=== PATIENT | female | born 1955 | race Hispanic/Latino ===

== ENCOUNTER 2018-04-11 13:04 | Inpatient (IN) | payer SELFPAY ==
[~2018-04-11] VITALS: Ht 162.6 cm; Wt 72.2 kg
[2018-04-11] VITALS (15 sets, daily range): BP systolic 104–130; BP diastolic 61–84
--- OUTSIDE RECORDS SUMMARY | 2018-04-11 13:07 | XMS REPORT ---
Author Author [facility] Address Unknown Phone Unavailable Care Team Providers Care Note Teller Name Role Phone Unavailable Unavailable Problems This patient has no known problems. Allergies, Adverse Reactions, Alerts This patient has no known allergies or adverse reactions. Medications This patient has no known medications. Encounters Start Date/Time End Date/Time Encounter Type Admission Type Attending [facility] Facility Care Department Encounter ID 2018-03-08 07:43:38 2018-03-08 07:43:38 Outpatient [facility] [id number] 2018-03-02 10:27:45 2018-03-02 10:27:45 Outpatient [facility] [id number] 2018-01-19 09:46:46 2018-01-19 09:46:46 Outpatient [facility] [id number] 2018-01-11 10:02:24 2018-01-11 10:02:24 Outpatient [facility] [id number] 2018-01-11 09:18:44 2018-01-11 09:18:44 Outpatient [facility] [id number] 2018-01-11 00:00:00 2018-01-11 00:00:00 Outpatient [facility] [id number] 2018-01-03 00:00:00 2018-01-03 00:00:00 Outpatient [facility] [id number] 2017-12-02 10:13:32 2017-12-02 10:13:32 Outpatient [facility] [id number] 2017-10-14 08:52:11 2017-10-14 08:52:11 Outpatient [facility] [id number] 2017-09-15 00:00:00 2017-09-15 00:00:00 Outpatient [facility] [id number] 2017-09-06 09:41:19 2017-09-06 09:41:19 Outpatient [facility] [id number] 2017-09-03 10:47:19 2017-09-03 10:47:19 Outpatient [facility] [id number] 2017-08-27 00:00:00 2017-08-27 00:00:00 Outpatient [facility] [id number] 2017-03-25 07:48:15 2017-03-25 07:48:15 Outpatient [facility] [id number] 2017-02-05 00:00:00 2017-02-05 00:00:00 Outpatient [facility] [id number] 2017-01-13 17:47:52 2017-01-13 17:47:52 Outpatient [facility] [id number] 2017-01-07 08:55:05 2017-01-07 08:55:05 Outpatient [facility] [id number] 2017-01-01 14:21:01 2017-01-01 14:21:01 Outpatient [facility] [id number] 2016-12-23 10:58:00 2016-12-23 10:58:00 Outpatient [facility] [id number] 2016-11-02 10:41:03 2016-11-02 10:41:03 Outpatient [facility] [id number] 2016-09-11 06:06:14 2016-09-11 06:06:14 Outpatient [facility] [id number] 2016-09-11 00:00:00 2016-09-11 00:00:00 Outpatient [facility] [id number] 2016-08-19 11:35:21 2016-08-19 11:35:21 Outpatient [facility] [id number] 2016-08-19 00:00:00 2016-08-19 00:00:00 Outpatient [facility] [id number]
--- OUTSIDE RECORDS SUMMARY | 2018-04-11 13:07 | XMS REPORT | Clinical Summary ---
Author Author [facility] Organization [facility] Address Unknown Phone Unavailable Care Team Providers Care Resident Care Spec Name Role Phone Jeronimo Melissa MD PCP Allergies No Known Allergies Medications End Date Status Medication Sig Dispensed Refills Start Date Active cyanocobalamin, vitamin Take 1 tablet 100 tablet 1 B-12, 1,000 mcg by mouth 6 tabletIndications: daily. Anemia, unspecified Active Calcium-Cholecalciferol, Take 1 tablet 100 tablet 1 D3, (CALCIUM 500 + D) 500 by mouth 6 mg(1,250mg) -400 unit daily. tabletIndications: Well woman exam Active codeine-guaiFENesin Take 10 mL by 120 mL 0 (CHERATUSSIN AC) 10-100 mouth 3 times 7 mg/5 mL syrupIndications: daily as Cough needed for Cough or Congestion. Active raNITIdine HCl (ACID Take 150 mg 0 BROKE HANDLER) 150 mg tablet by mouth 2 times daily. Active nitrofurantoin TOME MIRIAM (1) 0 (MACRODANTIN) 100 mg CAPSULA(S) 8 capsule POR LA BOCA CADA SEIS HORAS. Active alendronate (FOSAMAX) 35 Take 1 tablet 12 tablet 3 10/14/ mg tabletIndications: once a week 8 Osteopenia, unspecified on empty location stomach with 8 oz of water and remain upright for 30 minutes. Active cetirizine (ZYRTEC) 10 mg Take 1 tablet 90 tablet 0 tabletIndications: by mouth 8 Seasonal allergic daily. rhinitis due to other allergic trigger Active amLODIPine (NORVASC) 10 Take 1 tablet 90 tablet 0 02/16/201 mg tabletIndications: by mouth 8 Essential hypertension, daily. benign Active lisinopril (PRINIVIL, Take 1 tablet 90 tablet 0 ZESTRIL) 20 mg by mouth 8 tabletIndications: daily. Essential hypertension, benign 09/03/2017 Discontinued cetirizine (ZYRTEC) 10 mg Take 10 mg by 0 tablet mouth daily. 08/04/2017 Discontinued lisinopril (PRINIVIL, Take 1 tablet 90 tablet 1 ZESTRIL) 20 mg by mouth 7 tabletIndications: daily. Essential hypertension, benign 08/04/2017 Discontinued amLODIPine (NORVASC) 10 Take 1 tablet 90 tablet 1 mg tabletIndications: by mouth 7 Essential hypertension, daily. benign 11/15/2017 Discontinued amLODIPine (NORVASC) 10 Take 1 tablet 90 tablet 0 mg tabletIndications: by mouth 8 Essential hypertension, daily. benign 11/17/2017 Discontinued lisinopril (PRINIVIL, Take 1 tablet 90 tablet 0 ZESTRIL) 20 mg by mouth 8 tabletIndications: daily. Essential hypertension, benign 01/03/2018 Discontinued cetirizine (ZYRTEC) 10 mg Take 1 tablet 90 tablet 0 tabletIndications: by mouth 8 Seasonal allergic daily. rhinitis due to other allergic trigger 02/15/2018 Discontinued amLODIPine (NORVASC) 10 Take 1 tablet 90 tablet 0 mg tabletIndications: by mouth 8 Essential hypertension, daily. benign 02/15/2018 Discontinued lisinopril (PRINIVIL, Take 1 tablet 90 tablet 0 ZESTRIL) 20 mg by mouth 8 tabletIndications: daily. Essential hypertension, benign Active Problems Problem Noted Date Screening for osteoporosis- as per pt was told at [facility] for her upper 09/03/2017 back pain Essential hypertension, benign 01/08/2016 Hx of uterine prolapse with cystocele and rectocele- s/p hysterectomy, 01/08/2016 cystocele and rectocele repair 2007 [facility] Encounters Care Team Description Date Type Specialty Jeronimo Melissa MD Preventative health care 03/08/2018 Ancillary Radiology Procedure Dahlia Argueta, OD Meibomian gland dysfunction (Primary Dx); Bilateral dry eyes 03/02/2018 Office Visit Ophthalmology Jeronimo Melissa MD Essential hypertension, benign 02/15/2018 Refill [facility] Jeronimo Melissa MD Preventative health care 01/19/2018 Orders Only [facility] Jeronimo Melissa MD Preventative health care 01/11/2018 Lab Appointment Lab Jeronimo Melissa MD Preventative health care (Primary Dx) 01/11/2018 Office Visit [facility] Jeronimo Melissa MD Seasonal allergic rhinitis due to other allergic trigger 01/03/2018 Refill [facility] Dahlia Argueta, OD Jeronimo Melissa MD Age-related nuclear cataract, bilateral (Primary Dx); Meibomian gland dysfunction (MGD), bilateral, both upper and lower lids; Bilateral dry eyes; Refractive error 12/02/2017 Office Visit Ophthalmology Jeronimo Melissa MD Essential hypertension, benign 11/17/2017 Refill [facility] Jeronimo Melissa MD Essential hypertension, benign 11/15/2017 Refill [facility] Bryan Palmer MD Osteopenia, unspecified location (Primary Dx); Essential hypertension, benign 10/14/2017 Office Visit [facility] Jeronimo Melissa MD Screening for osteoporosis- as per pt was told at [facility] for her upper back pain 09/06/2017 Hospital Radiology Encounter Jeronimo Melissa MD Screening for osteoporosis- as per pt was told at [facility] for her upper back pain (Primary Dx); Chest pain, unspecified type- went to [facility] all work up wnl (EKG, PE); Essential hypertension, benign; Preventative health care; Seasonal allergic rhinitis due to other allergic trigger 09/03/2017 Office Visit [facility] Jeronimo Melissa MD Preventative health care 09/03/2017 Orders Only [facility] Jeronimo Melissa MD Essential hypertension, benign 08/04/2017 Refill [facility] after 04/10/2017 Immunizations Name Dates Previously Given Next Due Herpes Zoster Vaccine In 01/08/2016 (Deferred: Other - Patient requesting Clinic to wait til next visit) Influenza Vaccine 04/17/2016 TDap (Tetanus Toxoid, 07/19/2007 Reduced Diphtheria Toxoid And Acellular Pertussis, Absorbed) Family History Medical History Relation Name Comments Arthritis Father Cancer Mother pancreas cancer Diabetes Sister Heart Sister arrhythmia Hypertension Sister Hypothyroid Sister Relation Name Status Comments Brother Alive Father cirrhosis hepatic. (Age 70) Maternal Grandfather Maternal Grandmother Mother cancer pancreas (Age 50) Paternal Grandfather Paternal Grandmother Sister Alive Sister Sister Sister Sister Social History Date Tobacco Use Types Packs/Day Years Used Never Smoker Smokeless Tobacco: Never Used Tobacco Cessation: Counseling Given: No Alcohol Use Drinks/Week oz/Week Comments No Sex Assigned at Date Recorded Not on file Industry Job Start Date Occupation Not on file Not on file Not on file Travel End Travel History Travel Start No recent travel history available. Last Filed Vital Signs Time Taken Vital Sign Reading 01/11/2018 9:19 AM CDT Blood Pressure 131/69 01/11/2018 9:19 AM CDT Pulse 83 01/11/2018 9:19 AM CDT Temperature 37.1 C (98.7 F) 01/11/2018 9:19 AM CDT Respiratory Rate 18 - Oxygen Saturation - - Inhaled Oxygen - Concentration 01/11/2018 9:19 AM CDT Weight 70.7 kg (155 lb 12.8 oz) 01/11/2018 9:19 AM CDT Height 162.6 cm (5' 4") 01/11/2018 9:19 AM CDT Body Mass Index 26.74 Plan of Treatment Health Maintenance Due Date Last Done Comments Colorectal Cancer Scrn 01/19/2019 01/19/2018, 01/13/2017, 01/10/2016 Annual (FIT/FOBT) Age 50 to 75 Cervical Cancer Scrn (3 02/06/2019 02/07/2016 Yrs) Breast Cancer Scrn 03/08/2019 03/08/2018, 03/25/2017, 02/07/2016, (Yearly) Additional history exists Procedures Comments Procedure Name Priority Date/Time Associated Diagnosis MAMMOGRAM BILAT SCREEN Routine 03/08/2018 [facility] DIGITAL 8:12 AM PLATE PUT IN WORKER OCCULT BLOOD ICT Routine 01/19/2018 [facility] 9:58 AM CDT COMPREHENSIVE METABOLIC Routine 01/11/2018 [facility] PANEL(DBIL NOT INCLUDED) 10:01 AM CDT CBC/DIFF Routine 01/11/2018 [facility] 10:01 AM CDT LIPID PROFILE Routine 01/11/2018 [facility] 10:01 AM CDT HEMOGLOBIN A1C Routine 01/11/2018 [facility] care 10:01 AM CDT BONE DENSITY (DUAL Routine 09/06/2017 Screening for PHOTON) 11:09 AM CDT osteoporosis- as per pt was told at [facility] for her upper back pain after 04/10/2017 Results * MAMMOGRAM BILAT SCREEN DIGITAL (03/08/2018 8:12 AM PLATE PUT IN WORKER) Impressions Performed At IMPRESSION: BENIGN SMS There is no mammographic evidence of malignancy. A 1 year screening mammogram is recommended. I have reviewed the study and agree with the findings in the report. This document has been electronically signed. Carolyn Fitzgerald M.D. ks,ct/:03/08/2018 08:20:45 [employer] Superintendent: Adry Little, [facility] letter sent: Benign Exam Mammogram BI-RADS: 2 Benign G0202 z12.31 Narrative Performed At #[id number] - MAMMOGRAM BILAT SCREEN DIGITAL SMS BILATERAL DIGITAL SCREENING MAMMOGRAM WITH CAD: 03/08/2018 CLINICAL: Annual. Comparison is made to exams dated:03/25/2017, 02/07/2016 [facility], and 08/25/[address] [facility]. There are scattered fibroglandular elements in both breasts that could obscure a lesion on mammography. Current study was also evaluated with a Computer Aided Detection (CAD) system. There are benign calcifications and an intramammary node in both breasts.There are mole markers on the left breast.No significant masses, calcifications, or other findings are seen in either breast.There has been no significant interval change. Procedure Note Interface, Rad/Mammog In - 03/08/2018 9:36 AM PLATE PUT IN WORKER #[id number] - MAMMOGRAM BILAT SCREEN DIGITAL BILATERAL DIGITAL SCREENING MAMMOGRAM WITH CAD: 03/08/2018 CLINICAL: Annual. Comparison is made to exams dated: 03/25/2017, 02/07/2016 [facility], and 08/25/[address] [facility]. There are scattered fibroglandular elements in both breasts that could obscure a lesion on mammography. Current study was also evaluated with a Computer Aided Detection (CAD) system. There are benign calcifications and an intramammary node in both breasts. There are mole markers on the left breast. No significant masses, calcifications, or other findings are seen in either breast. There has been no significant interval change. IMPRESSION IMPRESSION: BENIGN There is no mammographic evidence of malignancy. A 1 year screening mammogram is recommended. I have reviewed the study and agree with the findings in the report. This document has been electronically signed. Carolyn Fitzgerald M.D. ks,ct/:03/08/2018 08:20:45 [employer] Superintendent: Adry Little [facility] letter sent: Benign Exam Mammogram BI-RADS: 2 Benign G0202 z12.31 Performing Organization Address City/[facility]/Zipcode Phone Number SMS * OCCULT BLOOD ICT (01/19/2018 9:58 AM CDT) Occult Blood Negative [facility] ICT Specimen Stool Performing Organization Address [place]/[facility] Phone Number [facility] * HEMOGLOBIN A1C (01/11/2018 10:01 AM CDT) Hemoglobin A1c 6.3 (H) 4.3 - 6.1 % [facility] IMMUNOLOGY Est Average 134.1 mg/dL BT [facility] Gluc IMMUNOLOGY Specimen Blood Performing Organization Address [facility] Phone Number [facility] * COMPREHENSIVE METABOLIC PANEL(DBIL NOT INCLUDED) (01/11/2018 10:01 AM CDT) Albumin 4.8 3.7 - 5.3 g/dL [facility] 1 Calcium 9.5 8.6 - 10.3 mg/dL BT [facility] 1 CO2 29 21 - 31 mmol/L BT [facility] 1 Chloride 102 98 - 107 mmol/L BT [facility] 1 Creatinine 0.50 (L) 0.6 - 1.2 mg/dL BT [facility] 1 Glucose 114 (H) 70 - 110 mg/dL BT [facility] 1 Alk Phos 70 34 - 104 U/L BT [facility] 1 Potassium 4.4 3.5 - 5.1 mmol/L BT [facility] 1 Sodium 138 136 - 145 mmol/L BT [facility] 1 ALT 16 7 - 52 U/L BT [facility] 1 AST 18 13 - 39 U/L BT [facility] 1 Urea Nitrogen 11 7 - 25 mg/dL BT [facility] 1 T Bilirubin 0.4 0.2 - 1.2 mg/dL BT [facility] 1 T Protein 8.0 6.0 - 8.3 g/dL BT [facility] 1 GFR, Estimated >60 mL/min/1.73 m2 BT [facility] 1 GFR, Estim, >60 mL/min/1.73 m2 BT [facility] Afr-Am 1 Anion Gap 7 BT [facility] 1 Specimen Blood Performing Organization Address [facility] Phone Number [facility] * LIPID PROFILE (01/11/2018 10:01 AM CDT) Cholesterol 223 mg/dL [facility] Comment: 1 REFERENCE RANGE: Desirable: <200 mg/dL Borderline: 200-240 mg/dL High Risk: >240 mg/dL Triglyceride 82 <150 mg/dL BT [facility] Comment: 1 REFERENCE RANGE: Normal: <150 mg/dL Borderline High: 150-199 mg/dL High: 200-499 mg/dL Very High: >pr=952 mg/dL HDL 73 mg/dL [facility] Comment: 1 Increased CHD risk: <40 mg/dL Decreased CHD risk: >60 mg/dL LDL 134 mg/dL BT [facility] Comment: 1 REFERENCE RANGE: Optimal: <100 mg/dL Near Optimal: 100-129 mg/dL Borderline High: 130-159 mg/dL High: 160-189 mg/dL Very High: >bu=564 mg/dL Specimen Blood Performing Organization Address [facility] Phone Number MISYS BT [facility] 1 * CBC/DIFF (01/11/2018 10:01 AM CDT) WBC 6.4 4.5 - 11.0 K/uL BT [facility] 2 RBC 4.09 (L) 4.20 - 5.40 M/uL BT [facility] 2 Hemoglobin 12.4 12.0 - 16.0 g/dL BT [facility] 2 Hematocrit 38.6 37.0 - 47.0 % BT [facility] 2 MCV 94 (H) 82 - 92 fL BT [facility] 2 MCH 30.3 27.0 - 32.0 pg BT [facility] 2 MCHC 32.1 32.0 - 36.0 g/dL BT [facility] 2 RDW 43.9 36.4 - 46.3 fL BT [facility] 2 Platelet 248 150 - 400 K/uL BT [facility] 2 Mean Platelet 11.9 9.4 - 12.4 fL BT [facility] Volume 2 Percent NRBC 0.0 BT [facility] 2 Absolute NRBC 0.00 BT [facility] 2 Neutrophil 72.8 (H) 34.0 - 70.0 % BT [facility] 2 Lymphocyte 20.2 20.0 - 50.0 % BT [facility] 2 Monocyte 5.6 5.0 - 12.0 % BT [facility] 2 Eosinophil 0.6 (L) 0.7 - 5.0 % BT [facility] 2 Basophil 0.5 0.1 - 1.2 % BT [facility] 2 Pct Immat Gran 0.3 0.0 - 0.5 BT MAIN-[facility] 2 Neutrophil, Abs 4.68 1.56 - 6.13 K/uL BT MAIN-STATION 2 Lymphocyte, Abs 1.30 1.18 - 3.74 K/uL BT MAIN-STATION 2 Monocyte, Abs 0.36 0.24 - 0.36 K/uL BT MAIN-STATION 2 Eosinophil, Abs 0.04 0.04 - 0.36 K/uL BT MAIN-STATION 2 Basophil, Abs 0.03 0.01 - 0.08 K/uL BT MAIN-STATION 2 Absol Immat 0.02 0.00 - 0.03 K/uL BT MAIN-STATION Gran 2 Specimen Blood Performing Organization Address City/State/Zipcode Phone Number MISYS BT [facility] 2 * BONE DENSITY (DUAL PHOTON) (09/06/2017 11:09 AM CDT) Impressions Performed At IMPRESSION: SMS Finding is suggesting Osteopenia. There is focal osteoporosis in L4 with T score of -2.7. Signed By: Gorge Canada MD, 09/06/2017 11:55 AM Narrative Performed At EXAM: DEXA SMS INDICATION: Bone mineral density screening TECHNIQUE: The patient underwent bone mineral densitometry using [employer] Discovery SL dual energy x-ray absorptiometry (DEXA).T-score is to compare the female peak bone mineral density (BMD). WHO definition of osteoporosis is T<-2.5 and osteopenia is T <-1.0. FINDINGS: Region...........BMD.....T score Spine L1-4....... 0.806 ..... -2.2 Femoral Neck..... 0.645 ..... -1.8 Total hip........ 0.748 ..... -1.6 Procedure Note Interface, Rad/Mammog In - 09/06/2017 12:01 PM CDT EXAM: DEXA INDICATION: Bone mineral density screening TECHNIQUE: The patient underwent bone mineral densitometry using Hologic Discovery SL dual energy x-ray absorptiometry (DEXA). T-score is to compare the female peak bone mineral density (BMD). WHO definition of osteoporosis is T<-2.5 and osteopenia is T <-1.0. FINDINGS: Region...........BMD.....T score Spine L1-4....... 0.806 ..... -2.2 Femoral Neck..... 0.645 ..... -1.8 Total hip........ 0.748 ..... -1.6 IMPRESSION IMPRESSION: Finding is suggesting Osteopenia. There is focal osteoporosis in L4 with T score of -2.7. Signed By: Gorge Canada MD, 09/06/2017 11:55 AM Performing Organization Address City/State/Zipcode Phone Number SMS after 04/10/2017 Insurance Type Payer Benefit Subscriber ID Effective Phone Address Plan / Dates Group [facility] xxxxxxx 2017-6 [address] [employer]ILY /09/2018 [id number] [place], [place] [phone] [employer] PLAN H[employer] PLAN xxxxxxx 2017-5 [id number] [place] [address]
[2018-04-11] MEDS ORDERED: SODIUM CHLORIDE 0.9% 1000ML 1,000 ML IV STA (13:11)
[2018-04-11] MEDS ORDERED: SODIUM CHLORIDE 0.9% 1000ML 2,000 ML ONE (13:13)
[2018-04-11] MEDS ORDERED: SODIUM CHLORIDE 0.9% 1000ML 1,000 ML IV SCH (13:15)
--- NOTE | 2018-04-11 13:17 | NUR ---
PATIENT TRANSPORTED TO ER ROOM 1, PLACED ON CARDIAC, NIBP, SPO2 AND DEFIB PADS APPLIED. PATIENT PALE AND COOL,HYPOTENSIVE, PLACED IN [place]. DR TOLENTINO AT BEDSIDE FOR PATIENT EVAL.
--- NOTE | 2018-04-11 13:22 | NUR ---
DR MCPHERSON AT BEDSIDE FOR PATIENT EVAL.
[2018-04-11 13:41] LABS: BASOPHILS % 0.4 % (0.0-1.0); EOSINOPHILS # (AUTO) 0.1 (0.0-0.4); HEMATOCRIT 33.5 % (34.2-44.1); HEMOGLOBIN 11.1 g/dL (12.0-16.0); LYMPHOCYTES # (AUTO) 3.9 (1.0-3.2); LYMPHOCYTES % 34.3 % (18.0-39.1); MEAN CORPUSCULAR HEMOGLOBIN 30.5 pg (28-32); MEAN CORPUSCULAR HGB CONC 33.1 g/dL (31-35); MONOCYTES # (AUTO) 0.9 (0.2-0.8); MONOCYTES % 8.3 % (4.4-11.3); NEUTROPHILS # (AUTO) 6.3 (2.1-6.9); NEUTROPHILS % 55.6 % (38.7-80.0); PLATELET COUNT 262 x10e3/uL (140-360); RED BLOOD COUNT 3.64 x10e6/uL (3.6-5.1); RED CELL DISTRIBUTION WIDTH 12.3 % (11.7-14.4)
--- NOTE | 2018-04-11 13:47 | NUR ---
XRAY AT BEDSIDE FOR CXR
--- NOTE | 2018-04-11 13:52 | NUR ---
ULTRASOUND AT BEDSIDE FOR ECHO. NO SIGNS OF ACUTE DISTRESS NOTED AT THIS TIME.
[2018-04-11 13:58] LABS: ALANINE AMINOTRANSFERASE 18 IU/L (0-55); ALBUMIN 3.9 g/dL (3.5-5.0); ALBUMIN/GLOBULIN RATIO 1.1 (0.8-2.0); ALKALINE PHOSPHATASE 74 IU/L (40-150); AMYLASE 58 U/L (25-125); ANION GAP 13.4 mmol/L (8-16); BLOOD UREA NITROGEN 16 mg/dL (7-26); BUN/CREATININE RATIO 20 (6-25); CARBON DIOXIDE 24 mmol/L (22-29); CHLORIDE 105 mmol/L (98-107); CREATINE KINASE 64 IU/L (29-168); CREATININE, SERUM 0.81 mg/dL (0.57-1.11); EST GLOMERULAR FILTRATION RATE > 60 ML/MIN (60-); GLUCOSE 135 mg/dL (74-118); LIPASE 37 U/L (8-78); POTASSIUM 3.4 mmol/L (3.5-5.1); SODIUM 139 mmol/L (136-145)
--- NOTE | 2018-04-11 14:06 | NUR ---
DR JACKSON AT BEDSIDE FOR PATIENT EVAL. EDUCATING PATIENT AND FAMILY ON THE CURRENT PLAN OF CARE, VERBALIZED UNDERSTANDING. NO SIGNS OF ACUTE DISTRESS NOTED AT THIS TIME.
--- NOTE | 2018-04-11 14:09 | Diagnostic Imaging Report ---
EXAMINATION: Chest AP portable INDICATION: Vomiting. COMPARISON: None FINDINGS: TUBES and LINES: None. Overlying pad in the right hemithorax. LUNGS: Mild prominence of the central pulmonary vasculature bilaterally may be in part related to portable technique. Mild elevation of the right hemidiaphragm. Mild bibasilar subsegmental atelectasis. PLEURA: No pleural effusion or pneumothorax. HEART AND MEDIASTINUM: The cardiac silhouette is mildly enlarged. BONES AND SOFT TISSUES: No acute osseous lesion. Soft tissues are unremarkable. UPPER ABDOMEN: No free air under the diaphragm. IMPRESSION: Possible mild pulmonary venous congestion. Mild bibasilar subsegmental atelectasis. Signed by: Dr. Chace Shields M.D. on 04/11/2018 2:06 PM
--- NOTE | 2018-04-11 14:26 | NUR ---
PATIENT AMBULATORY TO BATHROOM WITH RN ASSISTANCE, TOLERATED WELL. NO SIGNS OF ACUTE DISTRESS NOTED AT THIS TIME.
--- NOTE | 2018-04-11 14:29 | NUR ---
PATIENT AMBULATORY BACK TO BED FROM BATHROOM WITH RN ASSISTANCE, TOLERATED WELL. NO SIGNS OF ACUTE DISTRESS NOTED AT THIS TIME. RECONNECTED TO BEDSIDE MONITOR. DENIES ANY C/O AT THIS TIME. FAMILY AT BEDSIDE.
[2018-04-11] MEDS ORDERED: ASPIRIN 81 MG CHEW TAB PO ONE (14:30)
--- NOTE | 2018-04-11 14:48 | NUR ---
PATIENT C/O UPPER BACK PAIN. NOTIFIED DR TOLENTINO. NO SIGNS OF ACUTE DISTRESS NOTED AT THIS TIME.
--- OUTSIDE RECORDS SUMMARY | 2018-04-11 14:52 | XMS REPORT | Clinical Summary ---
Author Author [facility] Organization [facility] Address Unknown Phone Unavailable Care Team Providers Care Tobacco Acreage Measurer Name Role Phone Jeronimo Melissa MD PCP [...] raNITIdine HCl (ACID Take 150 mg 0 ESTIMATOR JEWELRY) 150 mg tablet by mouth 2 times [...] osteoporosis- as per pt was told at [facility] for her upper 09/03/2017 back pain Essential hypertension, benign 01/08/2016 Hx of uterine prolapse with cystocele and rectocele- s/p hysterectomy, 01/08/2016 cystocele and rectocele repair 2007 [facility] Encounters Care Team Description Date Type Specialty Jeronimo Melissa MD Preventative health care 03/08/2018 Ancillary Radiology Procedure Dahlia Argueta, OD Meibomian gland dysfunction (Primary Dx); Bilateral dry eyes 03/02/2018 Office Visit Ophthalmology Jeronimo Melissa MD Essential hypertension, benign 02/15/2018 Refill [facility] Jeronimo Melissa MD Preventative health care 01/19/2018 Orders Only [facility] Jeronimo Melissa MD Preventative health care 01/11/2018 Lab Appointment Lab Jeronimo Melissa MD Preventative health care (Primary Dx) 01/11/2018 Office Visit [facility] Jeronimo Melissa MD Seasonal allergic rhinitis due to other allergic trigger 01/03/2018 Refill [facility] Dahlia Argueta, OD Jeronimo Melissa MD Age-related nuclear cataract, bilateral (Primary Dx); Meibomian gland dysfunction (MGD), bilateral, both upper and lower lids; Bilateral dry eyes; Refractive error 12/02/2017 Office Visit Ophthalmology Jeronimo Melissa MD Essential hypertension, benign 11/17/2017 Refill [facility] Jeronimo Melissa MD Essential hypertension, benign 11/15/2017 Refill [facility] Bryan Palmer MD Osteopenia, unspecified location (Primary Dx); Essential hypertension, benign 10/14/2017 Office Visit [facility] Jeronimo Melissa MD Screening for osteoporosis- as per pt was told at [facility] for her upper back pain 09/06/2017 Hospital Radiology Encounter Jeronimo Melissa MD Screening for osteoporosis- as per pt was told at [facility] for her upper back pain (Primary Dx); Chest pain, unspecified type- went to [facility] all work up wnl (EKG, PE); Essential hypertension, benign; Preventative health care; Seasonal allergic rhinitis due to other allergic trigger 09/03/2017 Office Visit [facility] Jeronimo Melissa MD Preventative health care 09/03/2017 Orders Only [facility] Jeronimo Melissa MD Essential hypertension, benign 08/04/2017 Refill [facility] after 04/10/2017 Immunizations Name Dates [...] 03/08/2018 Preventative health care DIGITAL 8:12 AM COPY ROOM TECHNICIAN OCCULT BLOOD ICT Routine 01/19/2018 [facility] 9:58 AM CDT COMPREHENSIVE METABOLIC Routine 01/11/2018 [facility] PANEL(DBIL NOT INCLUDED) 10:01 AM CDT CBC/DIFF Routine 01/11/2018 [facility] 10:01 AM CDT LIPID PROFILE Routine 01/11/2018 [facility] 10:01 AM CDT HEMOGLOBIN A1C Routine 01/11/2018 [facility] care 10:01 AM CDT BONE DENSITY (DUAL Routine 09/06/2017 Screening for PHOTON) 11:09 AM CDT osteoporosis- as per pt was told at [facility] for her upper back pain after 04/10/2017 Results * MAMMOGRAM BILAT SCREEN DIGITAL (03/08/2018 8:12 AM COPY ROOM TECHNICIAN) Impressions Performed At IMPRESSION: BENIGN SMS There is no mammographic evidence of malignancy. A 1 year screening mammogram is recommended. I have reviewed the study and agree with the findings in the report. This document has been electronically signed. Carolyn Fitzgerald M.D. ks,ct/:03/08/2018 08:20:45 Dining Room Tables Set Up Attendant: Adry Little, [facility] letter sent: Benign Exam Mammogram BI-RADS: 2 Benign G0202 z12.31 Narrative Performed At #[id number] - MAMMOGRAM BILAT SCREEN DIGITAL SMS BILATERAL DIGITAL SCREENING MAMMOGRAM WITH CAD: 03/08/2018 CLINICAL: Annual. Comparison is made to exams dated:03/25/2017, 02/07/2016 [facility], and 08/25/2012 [facility]. There are scattered fibroglandular elements in [...] Interface, Rad/Mammog In - 03/08/2018 9:36 AM COPY ROOM TECHNICIAN #[id number] - MAMMOGRAM BILAT SCREEN DIGITAL BILATERAL DIGITAL SCREENING MAMMOGRAM WITH CAD: 03/08/2018 CLINICAL: Annual. Comparison is made to exams dated: 03/25/2017, 02/07/2016 [facility], and 08/25/2012 [facility]. There are scattered fibroglandular elements in [...] electronically signed. Carolyn Fitzgerald M.D. ks,ct/:03/08/2018 08:20:45 Dining Room Tables Set Up Attendant: Adry Little [facility] letter sent: Benign Exam Mammogram BI-RADS: 2 Benign G0202 z12.31 Performing Organization Address City/[facility]/Zipcode Phone Number SMS * OCCULT BLOOD ICT (01/19/2018 9:58 AM CDT) Occult Blood Negative [facility] ICT Specimen Stool Performing Organization Address City/[facility] Phone Number [facility] * HEMOGLOBIN A1C (01/11/2018 10:01 AM CDT) Hemoglobin A1c 6.3 (H) 4.3 - 6.1 % BT DIAGNOSTIC IMMUNOLOGY Est Average 134.1 mg/dL BT DIAGNOSTIC Gluc IMMUNOLOGY Specimen Blood Performing Organization Address [facility] Phone Number MISYS BT DIAGNOSTIC IMMUNOLOGY * [...] MAIN-STATION 1 Specimen Blood Performing Organization Address [facility] Phone Number MISYS MAIN-STATION 1 * LIPID PROFILE (01/11/2018 10:01 AM CDT) Cholesterol 223 mg/dL BT MAIN-STATION Comment: 1 REFERENCE RANGE: Desirable: <200 mg/dL Borderline: 200-240 mg/dL High Risk: >240 mg/dL Triglyceride 82 <150 mg/dL BT MAIN-STATION Comment: 1 REFERENCE RANGE: Normal: <150 mg/dL Borderline High: 150-199 mg/dL High: 200-499 mg/dL Very High: >ml=207 mg/dL HDL 73 mg/dL BT MAIN-STATION Comment: 1 Increased CHD risk: <40 mg/dL Decreased CHD risk: >60 mg/dL LDL 134 mg/dL BT MAIN-STATION Comment: 1 REFERENCE RANGE: Optimal: <100 mg/dL Near Optimal: 100-129 mg/dL Borderline High: 130-159 mg/dL High: 160-189 mg/dL Very High: >zn=665 mg/dL Specimen Blood Performing Organization Address [facility] Phone Number MISYS BT MAIN-STATION 1 * [...] The patient underwent bone mineral densitometry using [employer] Discovery SL dual energy x-ray absorptiometry (DEXA).T-score [...] Effective Phone Address Plan / Dates Group [facility] xxxxxxx 2017-[address] [employer] [facility]ILY /09/2018 [id number] [place], [place] [address] [facility] [employer] xxxxxxx 2017-5 [address] [place] [address]
[2018-04-11] MEDS ORDERED: MORPHINE SULFATE INJ 4 MG/ML INJ IV PRN (15:00)
[2018-04-11 15:08] LABS: BILIRUBIN,URINE NEGATIVE (NEGATIVE); CLARITY,URINE SL CLOUDY (CLEAR); COLOR,URINE YELLOW (YELLOW); KETONES,URINE NEGATIVE (NEGATIVE); LEUKOCYTE ESTERASE ,URINE TRACE (NEGATIVE); NITRITE,URINE NEGATIVE (NEGATIVE); PROTEIN,URINE DIPSTICK NEGATIVE (NEGATIVE); URINE UROBILINOGEN 0.2 mg/dL (0.2 - 1)
[2018-04-11 15:17] LABS: BACTERIA,URINE RARE /HPF; EPITHELIAL CELLS,URINE FEW /LPF; MUCUS,URINE FEW (RARE); WBC,URINE (MAN) 0-5 /HPF (0-5)
[2018-04-11] MEDS ORDERED: POTASSIUM CHLORIDE 20 MEQ TAB CR PO STA (15:27)
[2018-04-11] MEDS ORDERED: NORVASC5 MG PO (15:32)
[2018-04-11] MEDS ORDERED: LISINOPRIL10 MG PO (15:32)
[2018-04-11] MEDS ORDERED: CETIRIZINE HCL10 MG PO (15:32)
--- NOTE | 2018-04-11 15:45 | NUR ---
PATIENT TRANSPORTED TO ICU ROOM 194 VIA STRETCHER WITH WIRE MESH KNITTER AND PORTABLE AUDIO NARRATOR. NO SIGNS OF ACUTE DISTRESS NOTED AT THIS TIME.
[2018-04-11 15:52] LABS: AMPHETAMINES SCREEN,URINE NEGATIVE (NEGATIVE); BENZODIAZEPINES SCREEN,URINE NEGATIVE (NEGATIVE); PHENCYCLIDINE SCREEN,URINE NEGATIVE (NEGATIVE)
[2018-04-11 15:57] LABS: CHOL/HDL RATIO 2.8 (3.0-3.6)
--- NOTE | 2018-04-11 16:16 | Consultation ---
DATE OF CONSULTATION: April 11, 2018 REQUESTING PHYSICIAN: Dr. Cisneros. REASON FOR CONSULTATION: Bradycardia. HISTORY OF PRESENT ILLNESS: This is a 62-year-old woman with history of hypertension who presents with complaints of presyncope. The patient and family at bedside indicate that she was out shopping earlier today. She began to feel poorly so she went outside. She describes indigestion as well as burping sensation. She simply began to feel worse with pallor as well as sensation of near syncope. However, the patient and family indicated that she did not lose consciousness. Due to these symptoms, she presented to [facility] ER for further evaluation. On presentation, the patient was found to be bradycardiac and hypotensive with EKG revealing marked sinus bradycardia with junctional escape as well as nonspecific ST abnormalities. Cardiology is consulted for further evaluation. She indicates she has had prior episodes that were similar 3 times earlier this year including July and January. In addition, the patient states she had sensation of epigastric pain as well as palpitations while she was in the ER. REVIEW OF SYSTEMS: Negative except as per HPI. PAST MEDICAL HISTORY: Hypertension. PAST SURGICAL HISTORY: 1. Hysterectomy. 2. section. ALLERGIES: NO KNOWN DRUG ALLERGIES. MEDICATIONS: Please see EMR. SOCIAL HISTORY: Denies tobacco, alcohol or illicit drugs. FAMILY HISTORY: Noncontributory. PHYSICAL EXAMINATION VITAL SIGNS: Temperature 96 degrees, pulse 78, respiratory rate 25, blood pressure 121/63, oxygen 95%. GENERAL: Awake, alert and in no acute distress. HEENT: Normocephalic, atraumatic. Pupils are equal. No scleral icterus. NECK: Supple. No thyromegaly or cervical lymphadenopathy. No carotid bruits. LUNGS: Clear to auscultation bilaterally. No wheezes or crackles. CARDIOVASCULAR: Normal rate, regular rhythm. No murmurs. Normal S1 and S2. ABDOMEN: Soft and nontender. Nondistended. Normoactive bowel sounds. EXTREMITIES: No edema. NEUROLOGIC: Nonfocal exam. SKIN: No rash appreciated. LABORATORY DATA: WBC 11.3, hemoglobin 11.1, hematocrit 33.5, platelets 262,000, sodium 139, potassium 3.4, chloride 105, CO2 of 24, BUN 16, creatinine 0.81, lactic acid 21.5. Troponin less than 0.088. Chest x-ray with possible mild pulmonary venous congestion, mild bibasilar subsegmental atelectasis. EKG: Marked sinus bradycardia with junctional rhythm. IMPRESSION 1. Symptomatology bradycardia. 2. Hypertension. RECOMMENDATIONS: Trend cardiac enzymes to rule out myocardial infarction. Check TSH as well as fasting lipid panel. Echocardiogram has been ordered. We will review the images once they are available. Given the patient's symptomatic bradycardia, we will consult electrophysiology for possible pacemaker implantation. Thank you for this consult. Will continue to follow. Job#: [id number]
[2018-04-11 16:17] LABS: THYROID STIMULATING HORMONE 0.56 uIU/mL (0.350-4.940)
--- NOTE | 2018-04-11 16:51 | NUR ---
consult for dr hernandez called in to answering service. per service, is yulia.
[2018-04-12] VITALS (18 sets, daily range): BP systolic 95–144; BP diastolic 56–73
[2018-04-12 05:14] LABS: CREATINE KINASE MB 0.8 ng/mL (0-5.0)
[2018-04-12 05:29] LABS: CHOL/HDL RATIO 2.7 (3.0-3.6)
[2018-04-12 05:30] LABS: CREATINE KINASE MB 0.7 ng/mL (0-5.0)
--- NOTE | 2018-04-12 15:30 | NUR ---
patient has made a decision not to do pacemaker at this time. she is asking to go home. called and spoke with Dr Loyola and she will discuss with Dr Mann and call back with plan of care.
--- NOTE | 2018-04-12 16:26 | Consultation ---
DATE OF CONSULTATION: April 12, 2018 REQUESTING PHYSICIAN: Dr. Loyola. REASON FOR CONSULTATION: Evaluation of patient with bradycardia and syncope. CHIEF COMPLAINT: Loss of consciousness. HISTORY OF PRESENT ILLNESS: Ms. Cha is a 62-year-old woman with history of hypertension who is coming to the hospital today with recurrent syncope and shortness of breath. According to the patient, she had been in the mall shopping and had some significant back discomfort. On that time, she developed severe shortness of breath and lightheadedness. She went into her car and shortness of breath did not resolve and she came to the emergency room at that point. She was noted at that time to have severe bradycardia with a heart rate of 38 beats per minute in complete heart block, sinus rate at about 50 beats per minute. She was treated aggressively and the symptoms resolved spontaneously. The heart rate currently is 86 beats per minute, in sinus rhythm, with no evidence of AV conduction disturbances whatsoever. PAST MEDICAL HISTORY: Significant for hypertension. SOCIAL HISTORY: Negative for tobacco, alcohol, or drug abuse. FAMILY HISTORY: Negative for cardiac arrhythmias or congestive heart failure. Positive for hypertension. REVIEW OF SYSTEMS: As stated in HPI. The 14-point review of systems is negative. PHYSICAL EXAMINATION VITAL SIGNS: Blood pressure is currently 126/57, heart rate is 80, respiratory rate is 13, O2 saturation are 99% on room air. GENERAL: Ms. Cha is a middle-aged appearing , female in no acute distress. HEENT: Mucous membranes are pink, moist, anicteric, and acyanotic. Pupils are equal, round, and reactive to light. Head is atraumatic, normocephalic. CARDIOVASCULAR: S1 and S2 audible. Regular rate and rhythm is noted. No murmurs, rubs, or gallops. LUNGS: Clear to auscultation bilaterally. GI: Abdomen is soft, nondistended, nontender. Bowel sounds heard in all 4 quadrants. No hepatosplenomegaly. EXTREMITIES: Without peripheral edema, 2+ pulses in all 4 extremities. NEUROLOGICALLY: She is alert, oriented x3, with no focal neurologic deficits. IMAGING: Echocardiogram shows ejection fraction of 50-55%, small or trace tricuspid regurgitation. EKG shows sinus rhythm with third-degree AV block with junctional escape rhythm at 38 beats per minute and T-wave inversions inferiorly. LABORATORY STUDIES: Reviewed. ASSESSMENT: Ms. Cha is a 62-year-old woman with hypertension, who has had recurrent syncope. This is her third, possibly fourth syncopal episode in the last year to two years. Each of these episode seems to occur during exertion or during stressful situation. This is associated with some shortness of breath, but with low blood pressure and significant severe bradycardia. At this time, her EKG showed complete heart block with both junctional escape rhythm at 38 beats per minute and sinus rhythm about 50 to 60 beats per minute. These episodes appear to sound like neurocardiogenic syncope. The episodes are intermittent. They are occurring without warning. Although they are related to exertion, they are reproducible with exertion on the typical basis such as angina or cardiovascular or related to any coronary artery disease. Nonetheless, I believe these are neurocardiogenic syncopal episodes particularly because she is recovered and responded normally with a normal sinus rhythm at heart rate of 80s with normal AV conduction and normal QRS activation. With that in mind, there are 2 options available for her. Consideration of pacemaker implantation can be done with programming for sudden dante response, which can be used in settings of neurocardiogenic syncope with a profound cardioinhibitory component. In patients with a profound cardioinhibitory component of neurocardiogenic syncope, the pacemakers may have significant impact in reducing the severity of the syncopal episodes. Unfortunately if the component is mixed with a cardio or vasodilatory and the cardioinhibitory component, there may be some improvement in symptoms, but she may still have symptoms related to vasodilatation. I have discussed this with the patient's family at great length. Pacemaker implantation for her could be beneficial given the fact that there seems to be a strong cardioinhibitory component; however, there seems to be a vasodilatory component as well and she may still have some symptoms of hypotension associated with the episodes. Conservative management with hydration, compression stockings, and medications such as midodrine and Florinef can be used to improve blood circulation and raise blood pressure. Unfortunately, she already has mild hypertension, is taking 2 medications for that, and this would be counterintuitive to give her medications to raise blood pressure as well as lower her blood pressure at the same time. I think it would be reasonable to try to reduce these medications and tolerate a bit of hypotension to prevent the episodes. I have asked her family to discuss the options of consideration of pacemaker implantation versus conservative medical management with hydration and compression stockings. They are going to think about it and let us know. I will also discuss this with Dr. Loyola and will decide later this evening. From my standpoint, she can leave the ICU and go to her telemetry floor. Thank you for the consultation. Job#: [id number] PUN
--- NOTE | 2018-04-12 16:30 | NUR ---
patient ambulated to bathroom today x 3 with minimum assistance. denies any shortness of breath. denies any chest pain
--- NOTE | 2018-04-12 17:39 | NUR ---
Received patient from ICU via wheelchair. Accompanied by daughters. [id number] to time, person,place, situation. Respirations even and unlabored. Tele 2452 SR 80. Oriented patient to room. Instructed patient to use call light for assistance. Voiced understanding.
--- NOTE | 2018-04-12 17:44 | NUR ---
after discussing with family, patient has decided to proceed with pacemaker placement. paged Dr Mann for orders and notified Dr Loyola.
--- NOTE | 2018-04-12 18:21 | Discharge Summary ---
REASON FOR ADMISSION 1. Near syncope. 2. Symptomatic bradycardia. DISCHARGE DIAGNOSIS: Neurocardiogenic syncope. COMORBID CONDITIONS: Hypertension. CONSULTS: Electrophysiology. HISTORY OF PRESENT ILLNESS AND HOSPITAL COURSE: This is a 62-year-old woman with history hypertension who presents with complaints of near syncope. On arrival to the ER, she was found to have significant bradycardia with heart block and junctional escape rhythm. Electrophysiology was consulted for possible pacemaker implantation. After discussion with patient and family, the family decided against pacemaker implantation and wished to proceed with conservative measures. The patient was instructed on sodium liberalization as well as increasing fluid intake. She was instructed to wear compression stockings. In addition, patient was informed that she could not drive for 6 months. Furthermore, patient's antihypertensive therapy was decreased to decrease the severity of her hypotension during these episodes. No further episodes were recorded and patient was discharged home in stable condition. DISCHARGE MEDICATIONS: Please see medication list. DIET: Heart-healthy diet, sodium liberalization and increased fluid intake were discussed. FOLLOWUP: With primary care provider in 2 weeks and electrophysiology. ACTIVITY: As tolerated. PHYSICAL EXAMINATION VITAL SIGNS: Temperature 98.4 degrees, pulse 79, respiratory rate 15, blood pressure 121/62, and oxygen saturation 95% on room air. GENERAL: Awake and alert, in no acute distress. LUNGS: Clear to auscultation bilaterally with no wheezes or crackles. CARDIOVASCULAR: Normal rate, regular rhythm. No murmur. Normal S1 and S2. ABDOMEN: Soft, nontender. EXTREMITIES: No edema. TELEMETRY: Normal sinus rhythm. SHAILESH JACKSON MD Job#: [id number] GRAY
--- NOTE | 2018-04-12 18:31 | NUR ---
Resting in bed, side rails upx3, call light within reach, family at bedside. No s/s of acute distress noted. Report to be given to oncoming nurse.
--- NOTE | 2018-04-12 20:10 | NUR ---
ASSESSMENT DONE.NO RESP.DISTRESS.NO PAIN VOICED.AAOX4.AMBULATES.BED LOCKED AND IN LOWEST POSITION.INSTRUCTED TO CALL FOR ASSISTANCE NEEDED.
[2018-04-13] VITALS (7 sets, daily range): BP systolic 128–154; BP diastolic 64–72
--- NOTE | 2018-04-13 01:27 | NUR ---
MAINTAINING NPO FOR PACE MAKER PLACEMENT.V/S STABLE.
--- NOTE | 2018-04-13 05:00 | NUR ---
HIBICLENS BATH TAKEN.NO PAIN VOICED.SLEPT WELL DURING NIGHT.
[2018-04-13 05:38] LABS: BASOPHILS # (AUTO) 0.1 (0.0-0.1); BASOPHILS % 0.6 % (0.0-1.0); EOSINOPHILS # (AUTO) 0.1 (0.0-0.4); EOSINOPHILS % 1.3 % (0.0-6.0); HEMATOCRIT 35.5 % (34.2-44.1); HEMOGLOBIN 11.6 g/dL (12.0-16.0); LYMPHOCYTES # (AUTO) 2.1 (1.0-3.2); LYMPHOCYTES % 27.1 % (18.0-39.1); MEAN CORPUSCULAR HEMOGLOBIN 30.4 pg (28-32); MEAN CORPUSCULAR HGB CONC 32.7 g/dL (31-35); MEAN CORPUSCULAR VOLUME 92.9 fL (81-99); MONOCYTES # (AUTO) 0.7 (0.2-0.8); MONOCYTES % 8.8 % (4.4-11.3); NEUTROPHILS # (AUTO) 4.8 (2.1-6.9); NEUTROPHILS % 61.8 % (38.7-80.0); PLATELET COUNT 235 x10e3/uL (140-360); RED BLOOD COUNT 3.82 x10e6/uL (3.6-5.1); RED CELL DISTRIBUTION WIDTH 12.6 % (11.7-14.4)
[2018-04-13 06:01] LABS: ALANINE AMINOTRANSFERASE 37 IU/L (0-55); ALBUMIN 3.8 g/dL (3.5-5.0); ALKALINE PHOSPHATASE 59 IU/L (40-150); BLOOD UREA NITROGEN 10 mg/dL (7-26); BUN/CREATININE RATIO 14 (6-25); CALCIUM 8.9 mg/dL (8.4-10.2); CARBON DIOXIDE 23 mmol/L (22-29); CHLORIDE 105 mmol/L (98-107); EST GLOMERULAR FILTRATION RATE > 60 ML/MIN (60-); GLUCOSE 99 mg/dL (74-118); SODIUM 138 mmol/L (136-145)
--- NOTE | 2018-04-13 06:50 | NUR ---
REPORT GIVEN TO THE ONCOMING RN.WALKING ROUNDS DONE.STABLE CONDITION.
--- NOTE | 2018-04-13 07:00 | NUR ---
Received patient semi fowlers position, call light within reach, daughters at bedside. AAOX4 to time, person, place, situation. Respirations even and unlabored. Reminded patient of NPO status. Voice understanding.
--- NOTE | 2018-04-13 14:00 | NUR ---
SOCIAL WORK INITIAL ASSESSMENT Mining Helper to bedside to discuss plan of care with patient/family. CM/SW role and care transitions discussed. Anticipated discharge plan discussed along with duration of care. CM/SW discussed patients right to make decisions in care. CM/SW work hours given. Patient lives: IN OWN HOME WITH FAMILY Admit/Transfer: VIA ED FROM HOME POA/Emergency contact: FAMILY Current/Previous Home Health:NONE PCP/Follow-up Care: [facility] Current/Previous DME: NONE Other Services: NA Employment Status: STAY AT HOME Areas of Concerns: PT HAS GOLD CARD Referral Needs: GAVE PACKET OF INFORMATION WITH COMMUNITY [employer] FOR ASSISTANCE WITH LOW TO NO INCOME TO PATIENT. RESOURCES THAT PATIENT MAY BE ABLE TO FOLLOW UP UPON DISCHARGE. PT EDUCATED ON EACH RESOURCE AND UNDERSTANDING HOW TO FOLLOW UP TO SEE IF QUALIFIED FOR EACH RESOURCE. Education Needs: NONE IMM/ROA given and signed (if applicable): Goal for discharge: RETURN HOME INDEPENDENTLY CM/SW left business card at the bedside with contact information. Name and number was also written on the patients whiteboard. Patient verbalized understanding of discussion. CM will follow-up with ongoing discharge and transition of care needs.
--- NOTE | 2018-04-13 17:25 | NUR ---
Per pacemaker to be rescheduled for tomorrow. Paged to notify Addendum: 04/13/18 at 1907 by MARJORIE HERNANDES RN left message notifying medication reconciliation has not been reviewed. Awaiting for call back
--- NOTE | 2018-04-13 19:00 | NUR ---
Report given to oncoming nurse of patient's status. No s/s of acute distress noted. Instructed patient NPO after midnight. Voiced understanding.
--- NOTE | 2018-04-13 19:45 | NUR ---
Pt alert and oriented x3, resting in bed, semi-luis's position. Breathing even, unlabored. Skin warm, dry to touch. Denies any pain or discomfort at this time. Call light within reach. Family at beside. Pt is scheduled for pacemaker placement tomorrow with Dr. Mann. Pt verbalizes understanding. Pt is to remain npo past midnight tonight. Will continue to monitor.
[2018-04-14] VITALS: BP 141/68
[2018-04-14 04:00] VITALS: BP 138/66
[2018-04-14] MEDS ORDERED: FENTANYL CITRATE/PF 100MCG/2 ML INJ ONE (07:18)
[2018-04-14] MEDS ORDERED: LIDOCAINE HCL 2% LOCAL 20 ML VIAL ONE ×2 (07:18→07:58)
[2018-04-14] MEDS ORDERED: BACITRACIN 50,000 UNIT VIAL ONE (07:18)
[2018-04-14] MEDS ORDERED: MIDAZOLAM HCL 2 MG/2 ML VIAL ONE ×2 (07:18→07:57)
[2018-04-14] MEDS ORDERED: SODIUM CHLORIDE 0.9% 1000ML 2,000 ML ONE (07:19)
[2018-04-14] MEDS ORDERED: SODIUM CHLORIDE 0.9% 500ML 500 ML ONE (07:19)
[2018-04-14] MEDS ORDERED: VANCOMYCIN 1GM/NS 250 ML 250 ML ONE (07:35)
[2018-04-14 09:00] VITALS: BP 134/63
--- NOTE | 2018-04-14 09:00 | NUR ---
PATIENT IS BACK ON THE UNIT FROM FARM MANAGER IN STABLE CONDITION. PRESSURE DRESSING DRY AND INTACT TO THE PACEMAKER SITE, PATIENT DENIES PAIN AT THIS TIME. SLING APPLIED TO THE LEFT ARM, IV INTACT TO THE LEFT AC AND THE RIGHT AC. IV REMOVED FROM THE RIGHT EJ WITH TIP INTACT. FAMILY MEMBERS VISITING WITH THE PATIENT, CALL LIGHT IN EASY REACH, INSTRUCTED TO CALL FOR ASSISTANCE NEEDED.
--- NOTE | 2018-04-14 11:38 | NUR ---
DRESSING REMAINS DRY AND INTACT TO THE PACE MAKER SITE, PATIENT DENIES PAIN. SHE WAS ASSISTED TO THE RESTROOM, SHE'S NOW BACK IN BED WITHOUT RESPIRATORY DISTRESS.
--- NOTE | 2018-04-14 12:45 | Progress Note ---
DATE: CARDIOLOGY PROGRESS NOTE SUBJECTIVE: Patient feels well. Underwent permanent pacemaker implantation this morning. Denies any chest pain, shortness of breath or pain at her insertion site. OBJECTIVE: VITAL SIGNS: Temperature is 97.0, heart rate is 80, respirations are 19, blood pressure is 134/63, oxygen saturation is 97% on room air. GENERAL: Well-appearing, no apparent distress. CARDIOVASCULAR: Regular rate and rhythm. LUNGS: Clear to auscultation. ABDOMEN: Soft, nontender. EXTREMITIES: No edema. VASCULAR: 2+ pulses. NEUROLOGICAL: No focal deficits noted. CARDIOVASCULAR MEDICATIONS AND MEDICATION REGIMEN: Reviewed. LABORATORY DATA: Reviewed. TELEMETRY MONITORING: Revealed normal sinus rhythm. IMPRESSION: 1. Symptomatic bradycardia. 2. Hypertension. 3. Near syncope. PLAN: The patient underwent permanent pacemaker implantation. Will keep the patient overnight and have an interrogation performed in the morning. Chest x-ray in the morning. Continue all the current medications. Job#: [id number] EV
[2018-04-14 13:36] VITALS: BP 150/76
--- NOTE | 2018-04-14 16:59 | NUR ---
ASSISTED PATIENT WITH ADLS, SHE DENIES PAIN TO THE PACEMAKER SITE BUT C/O SORENESS. DRESSING REMAINS DRY AND INTACT, FAMILY MEMBERS VISITING WITH THE PATIENT.
[2018-04-14 17:30] VITALS: BP 154/74
--- NOTE | 2018-04-14 18:34 | NUR ---
PATIENT AMBULATED IN THE ESCOBAR WITH PRIMARY NURSE AT HER SIDE, SHE'S NOW BACK IN THE ROOM SITTING UP IN THE CHAIR. CALL LIGHT WITHIN EASY REACH, FAMILY MEMBERS AT THE BEDSIDE.
[2018-04-14 20:00] VITALS: BP 144/78
--- NOTE | 2018-04-14 20:15 | NUR ---
Called and spoke with Dr. Swann regarding pt's trend in increase of bp and current status. New orders received.
[2018-04-14] MEDS ORDERED: AMLODIPINE BESYLATE 10 MG TAB PO NR (20:30)
[2018-04-14] MEDS ORDERED: MORPHINE SULFATE INJ 4 MG/ML INJ IV PRN (21:00)
[2018-04-15] VITALS: BP 142/69
[2018-04-15 04:00] VITALS: BP 144/78
--- NOTE | 2018-04-15 06:42 | Diagnostic Imaging Report ---
EXAM: CHEST SINGLE (PORTABLE), AP 1 view INDICATION: Pacemaker placement COMPARISON: AP view of the chest April 11, 2018 FINDINGS: LINES/TUBES: Interval placement of left approach dual lead pacemaker with leads in expected location of the right atrial appendage and right ventricle. LUNGS: No consolidations or edema. PLEURA: No effusions or pneumothorax. HEART AND MEDIASTINUM: Normal size and contour. BONES AND SOFT TISSUES: No acute findings. IMPRESSION: Interval placement of left approach dual-lead pacemaker with. No pneumothorax. Signed by: Dr. Macrina Hopkins M.D. on 04/15/2018 6:39 AM
--- NOTE | 2018-04-15 08:07 | Operative Report ---
DATE OF PROCEDURE: April 14, 2018 PREPROCEDURE DIAGNOSIS: Intermittent complete heart block with syncope. No reversible causes. POSTOPERATIVE DIAGNOSIS: Intermittent complete heart block with syncope. No reversible causes. ESTIMATED BLOOD LOSS: 5 mL. COMPLICATIONS: None. PROCEDURES PERFORMED 1. Dual chamber cardiac pacemaker placement. 2. Moderate sedation. Moderate conscious sedation was provided under my direct supervision by a sedation-trained nurse. Sedation approximate time 30 minutes, Versed and fentanyl. There were no complications. See sedation form for details. DESCRIPTION OF PROCEDURE: After informed consent was obtained, patient was brought to the electrophysiology laboratory in a fasting nonsedated state. Area over her chest was prepped and draped in the usual sterile fashion. Moderate sedation and prophylactic antibiotic were given. Lidocaine 1% was used as local anesthetic, and a 3-cm skin incision was made in the left subclavicular area. Electrocautery, sharp and blunt dissection were used to reach the muscular fascia, and a pocket was created for eventual implantation of the device. Vascular access was obtained x2 in the left axillary vein using the modified Seldinger technique under fluoroscopic guidance. Two 6-Bermudian sheaths were placed. The right ventricular lead advanced at the RV apex. R-wave 18, pacing 0.4 at 0.5, impedance 900. The atrial lead to the right atrial appendage. P-wave 7, pacing 0.7 at 0.5, impedance 750. The sheaths were removed from the body. Leads were secured to fascia using 0-silk. Pocket was irrigated with antibiotic solution using the pulse raimann machine operator. Hemostasis was meticulous. Leads were connected to the device. The entire pacemaker system placed in the pocket. Incision was closed using Vicryl and Dermabond. Patient tolerated the procedure well. Procedure was deemed complete. SUMMARY OF HARDWARE IMPLANTED 1. The new pacemaker is [employer], model #L311, 203020. 2. The atrial lead is [employer] [id number]. 3. The ventricular lead is [employer] [id number], [id number]. IMPRESSION: Successful dual-chamber pacemaker implant via left axillary vein. PLAN 1. Routine postop monitoring on telemetry bed. 2. Chest x-ray. 3. Followup in 2 weeks. Job#: [id number] CQ
[2018-04-15 08:38] VITALS: BP 146/69
[2018-04-15] MEDS ORDERED: AMLODIPINE BESYLATE 5 MG TAB PO SCH (09:00)
[2018-04-15] MEDS ORDERED: LISINOPRIL 10 MG TAB PO SCH (09:00)
[2018-04-15 09:05] VITALS: BP 146/69
[2018-04-15] MEDS ORDERED: MINOCYCLINE HCL50 MG PO (10:56)
[2018-04-15] MEDS ORDERED: ULTRAM50 MG PO (10:57)
--- NOTE | 2018-04-15 11:23 | NUR ---
SPOKE WITH MD DUARTE. OK DISCHARGE AT THIS TIME. PACEMAKER INTERROGATED AND CHEST XRAY IMPRESSION READ TO MD. DISCHARGE INSTRUCTIONS AND PRESCRIPTIONS GIVEN. PT VERBALIZED UNDERSTANDING .UNDERSTANDS FOLLOW UP VISIT WITH MARKET EDITOR INSTRUCTIONS ABOUT PACEMAKER GIVEN ASWELL IV DC PRESSURE DRESSING APPLIED AND TAPED. TELE DC PT IS READY FOR DC AT THIS TIME
--- NOTE | 2018-04-15 12:07 | NUR ---
PT OFF UNIT TO HOME
== END 2018-04-15 12:00 | disposition home or self-care (01) | DRG 244 ==
LOC: ER 13:04 → ERHOLD 14:49 → ICU 15:54 → MED/SURG 04-12 17:39
PROVIDERS: ADMIT Internal Medicine; ATTEND Internal Medicine
PROC: 0JH606Z Insertion of Pacemaker, Dual Chamber into Chest Subcutaneous Tissue and Fascia, Open Approach (ICD-10-PCS; principal; 2018-04-14)
PROC: 02H63JZ Insertion of Pacemaker Lead into Right Atrium, Percutaneous Approach (ICD-10-PCS; 2018-04-14)
PROC: 02HK3JZ Insertion of Pacemaker Lead into Right Ventricle, Percutaneous Approach (ICD-10-PCS; 2018-04-14)
DX: I44.2 Atrioventricular block, complete (principal); I10 Essential (primary) hypertension; I25.10 Atherosclerotic heart disease of native coronary artery without angina pectoris
CPT/HCPCS: 33208; 36415; 71045; 80053; 80061; 80307; 81001; 82150; 82550; 82553; 83605; 83690; 84443; 84484; 85025; 87040; 87400; 93005; 93306; 99285; J2001; J2250; J2270; J3370; J7030; J7040

== ENCOUNTER 2018-04-23 11:51 | Emergency (ER) | payer SELFPAY ==
[~2018-04-23] VITALS: Ht 162.6 cm; Wt 71.7 kg
[~2018-04-23 11:51] MED LIST: CETIRIZINE HCL10 MG PO; LISINOPRIL10 MG PO; MINOCYCLINE HCL50 MG PO; NORVASC5 MG PO; ULTRAM50 MG PO
[2018-04-23] MEDS ORDERED: SODIUM CHLORIDE 0.9% 1000ML 1,000 ML IV STA (12:10)
[2018-04-23] MEDS ORDERED: PANTOPRAZOLE 40 MG 10ML VIAL IV STA (12:10)
[2018-04-23 12:20] LABS: BASOPHILS % 0.4 % (0.0-1.0); EOSINOPHILS % 0.5 % (0.0-6.0); HEMATOCRIT 37.6 % (34.2-44.1); HEMOGLOBIN 12.2 g/dL (12.0-16.0); LYMPHOCYTES # (AUTO) 1.8 (1.0-3.2); LYMPHOCYTES % 23.6 % (18.0-39.1); MEAN CORPUSCULAR HGB CONC 32.4 g/dL (31-35); MEAN CORPUSCULAR VOLUME 92.4 fL (81-99); MONOCYTES # (AUTO) 0.4 (0.2-0.8); MONOCYTES % 5.1 % (4.4-11.3); NEUTROPHILS # (AUTO) 5.4 (2.1-6.9); PLATELET COUNT 213 x10e3/uL (140-360); RED BLOOD COUNT 4.07 x10e6/uL (3.6-5.1); RED CELL DISTRIBUTION WIDTH 12.4 % (11.7-14.4)
[2018-04-23 12:25] LABS: INR 0.95; PROTHROMBIN TIME 13.5 seconds (11.9-14.5)
[2018-04-23 12:26] LABS: PARTIAL THROMBOPLASTIN TIME 21.8 seconds (23.8-35.5)
[2018-04-23 12:35] LABS: ALANINE AMINOTRANSFERASE 63 IU/L (0-55); ALBUMIN 3.5 g/dL (3.5-5.0); ALBUMIN/GLOBULIN RATIO 0.9 (0.8-2.0); ALKALINE PHOSPHATASE 91 IU/L (40-150); ANION GAP 15.5 mmol/L (8-16); BLOOD UREA NITROGEN 15 mg/dL (7-26); BUN/CREATININE RATIO 18 (6-25); CALCIUM 9.2 mg/dL (8.4-10.2); CARBON DIOXIDE 24 mmol/L (22-29); CHLORIDE 98 mmol/L (98-107); CREATINE KINASE 33 IU/L (29-168); CREATININE, SERUM 0.83 mg/dL (0.57-1.11); EST GLOMERULAR FILTRATION RATE > 60 ML/MIN (60-); GLUCOSE 181 mg/dL (74-118); MAGNESIUM 2.5 MG/DL (1.3-2.1); POTASSIUM 4.5 mmol/L (3.5-5.1); SODIUM 133 mmol/L (136-145)
--- NOTE | 2018-04-23 12:46 | Diagnostic Imaging Report ---
EXAMINATION: CHEST SINGLE (PORTABLE) COMPARISON: Chest x-ray 04/07/2018 INDICATION: ^HYPOTENSION ^[id number] ^1226 DISCUSSION: Frontal view of the chest obtained at 1226 hours. HEART AND MEDIASTINUM: The cardiomediastinal silhouette is unremarkable. LINES: Dual-lead pacemaker wires are stable in position. LUNGS: The lungs are well inflated and clear. No pneumonia or pulmonary edema. PLEURA: No pleural effusion or pneumothorax. Mild eventration of the right diaphragm is stable. BONES AND SOFT TISSUES: No focal osseous lesion. The soft tissues are normal. IMPRESSION: No acute cardiopulmonary disease. Signed by: Dr. Cain Fitzgerald MD on 04/23/2018 12:43 PM
[2018-04-23 13:24] LABS: B-TYPE NATRIURETIC PEPTIDE2 < 10.0 pg/mL (0-100)
[2018-04-23 13:33] LABS: BILIRUBIN,URINE NEGATIVE (NEGATIVE); CLARITY,URINE HAZY (CLEAR); COLOR,URINE YELLOW (YELLOW); KETONES,URINE NEGATIVE (NEGATIVE); LEUKOCYTE ESTERASE ,URINE 1+ (NEGATIVE); NITRITE,URINE NEGATIVE (NEGATIVE); PROTEIN,URINE DIPSTICK 2+ (NEGATIVE); URINE UROBILINOGEN 0.2 mg/dL (0.2 - 1)
[2018-04-23 13:36] LABS: AMORPHOUS SEDIMENT,URINE FEW (FEW); BACTERIA,URINE FEW /HPF; EPITHELIAL CELLS,URINE FEW /LPF; MUCUS,URINE FEW (RARE); RBC,URINE 0-5 /HPF (0-5)
[2018-04-23] MEDS ORDERED: CEFTRIAXONE SOD 1 GM/NS 50 ML 50 ML IV ONE (14:15)
--- NOTE | 2018-04-23 15:25 | NUR ---
Information sent over to [employer] Awaiting call from Dr. Loyola.
[2018-04-23 16:07] VITALS: BP 115/57
--- NOTE | 2018-04-23 16:09 | NUR ---
Spoke to Dr. Loyola and she stated patient may discharge home at this time.
== END 2018-04-23 16:21 | disposition home or self-care (01) ==
LOC: ER 11:51
DX: R53.1 Weakness (principal); R42 Dizziness and giddiness; N30.90 Cystitis, unspecified without hematuria; I10 Essential (primary) hypertension; Z95.0 Presence of cardiac pacemaker
CPT/HCPCS: 36415; 71045; 80053; 81001; 82550; 82553; 83605; 83735; 83880; 84484; 85025; 85610; 85730; 87040; 87086; 87186; 93005; 99284; J0696; J7030

== ENCOUNTER 2018-11-07 22:04 | Inpatient (IN) | payer SELFPAY ==
[~2018-11-07] VITALS: Ht 160 cm; Wt 65.8 kg
--- OUTSIDE RECORDS SUMMARY | 2018-11-07 22:07 | XMS REPORT | Continuity of Care Document ---
Author Author TouristR Address Unknown Phone Unavailable Care Team Providers Care Fire Control Technician B Name Role Phone WORKING OUT WORKS Information Stemgent Unavailable Unavailable Problems Problem Status Onset Date Classification Date Reported Comments Source Screening for osteoporosis- as per pt was told at [facility] for her upper back pain Active 09/03/2017 09/13/2018 [facility] Essential hypertension, benign Active 01/08/2016 09/13/2018 [facility] Hx of uterine prolapse with cystocele and rectocele- s/p hysterectomy, cystocele and rectocele repair 2007 [facility] Active 01/08/2016 09/13/2018 [facility] Chest pain Active Problem 04/23/2018 [facility] Heart block Active Problem 04/23/2018 [facility] Seasonal allergic rhinitis due to other allergic trigger Active 09/13/2018 [facility] Preventative health care Active 09/13/2018 [facility] Meibomian gland dysfunction Active 09/13/2018 [facility] Bilateral dry eyes Active 09/13/2018 [facility] Age-related nuclear cataract, bilateral Active 09/13/2018 [facility] Meibomian gland dysfunction , bilateral, both upper and lower lids Active 09/13/2018 [facility] Refractive error Active 09/13/2018 [facility] Osteopenia, unspecified location Active 09/13/2018 [facility] Screening for osteoporosis Active 08/22/2018 [facility] Chest pain, unspecified type Active 08/22/2018 [facility] Supraclavicular fossa fullness Active 09/13/2018 [facility] Pacemaker Active 09/13/2018 [facility] Chronic left shoulder pain Active 09/13/2018 [facility] Medications Medication Details Route Status Patient Instructions Ordering Provider Order Date Source cetirizine (ZYRTEC) 10 mg tablet Take 1 tablet by mouth daily. Oral Active 08/31/2018 [facility] amLODIPine (NORVASC) 10 mg tablet Take 1 tablet by mouth daily. Oral Inactive 08/03/2018 [facility] lisinopril (PRINIVIL, ZESTRIL) 20 mg tablet Take 1 tablet by mouth daily. Oral Active 08/03/2018 [facility] amLODIPine (NORVASC) 10 mg tablet Take 1 tablet by mouth daily. Oral Inactive 08/03/2018 [facility] traZODone (DESYREL) 50 mg tablet TOME MIRIAM (1) TABLETA(S) POR LA BOCA MIRIAM VEZ AL SARA AL ACOSTARSE. Active 08/01/2018 [facility] cetirizine (ZYRTEC) 10 mg tablet Take 1 tablet by mouth daily. Oral No Longer Active 05/10/2018 [facility] amLODIPine (NORVASC) 10 mg tablet Take 1 tablet by mouth daily. Oral No Longer Active 02/16/2018 [facility] lisinopril (PRINIVIL, ZESTRIL) 20 mg tablet Take 1 tablet by mouth daily. Oral No Longer Active 02/16/2018 [facility] amLODIPine (NORVASC) 10 mg tablet Take 1 tablet by mouth daily. Oral No Longer Active 02/16/2018 [facility] cetirizine (ZYRTEC) 10 mg tablet Take 1 tablet by mouth daily. Oral No Longer Active 01/04/2018 [facility] lisinopril (PRINIVIL, ZESTRIL) 20 mg tablet Take 1 tablet by mouth daily. Oral No Longer Active 11/18/2017 [facility] amLODIPine (NORVASC) 10 mg tablet Take 1 tablet by mouth daily. Oral No Longer Active 11/16/2017 [facility] amLODIPine (NORVASC) 10 mg tablet Take 1 tablet by mouth daily. Oral No Longer Active 11/16/2017 [facility] alendronate (FOSAMAX) 35 mg tablet Take 1 tablet once a week on empty stomach with 8 oz of water and remain upright for 30 minutes. Active 10/14/2017 [facility] cetirizine (ZYRTEC) 10 mg tablet Take 1 tablet by mouth daily. Oral No Longer Active 09/03/2017 [facility] nitrofurantoin (MACRODANTIN) 100 mg capsule TOME MIRIAM (1) CAPSULA(S) POR LA BOCA CADA SEIS HORAS. Active 08/15/2017 [facility] amLODIPine (NORVASC) 10 mg tablet Take 1 tablet by mouth daily. Oral No Longer Active 08/04/2017 [facility] lisinopril (PRINIVIL, ZESTRIL) 20 mg tablet Take 1 tablet by mouth daily. Oral No Longer Active 08/04/2017 [facility] amLODIPine (NORVASC) 10 mg tablet Take 1 tablet by mouth daily. Oral No Longer Active 08/04/2017 [facility] lisinopril (PRINIVIL, ZESTRIL) 20 mg tablet Take 1 tablet by mouth daily. Oral No Longer Active 01/01/2017 [facility] amLODIPine (NORVASC) 10 mg tablet Take 1 tablet by mouth daily. Oral No Longer Active 01/01/2017 [facility] codeine-guaiFENesin (CHERATUSSIN AC) 10-100 mg/5 mL syrup Take 10 mL by mouth 3 times daily as needed for Cough or Congestion. Oral Active 06/12/2016 [facility] codeine-guaiFENesin (CHERATUSSIN AC) 10-100 mg/5 mL syrup Take 10 mL by mouth 3 times daily as needed for Cough or Congestion. Oral Active 06/12/2016 [facility] cyanocobalamin, vitamin B-12, 1,000 mcg tablet Take 1 tablet by mouth daily. Oral Active 02/07/2016 [facility] Calcium-Cholecalciferol, D3, (CALCIUM 500 + D) 500 mg(1,250mg) -400 unit tablet Take 1 tablet by mouth daily. Oral Active 02/07/2016 [facility] Amlodipine Besylate (Norvasc) 5 Mg Tab Daily Active [facility] Cetirizine Hcl 10 Mg Tablet Daily Active [facility] Lisinopril 10 Mg Tablet Daily Active [facility] Minocycline Hcl 50 Mg Capsule Every 12 Hours Active [facility] Tramadol Hcl (Ultram) 50 Mg Tablet Every 8 Hours as needed for Pain Active [facility] raNITIdine HCl (ACID WASTE AND BATTING WASTE CHOPPER) 150 mg tablet Take 150 mg by mouth 2 times daily. Oral Active [facility] Allergies, Adverse Reactions, Alerts Substance Category Reaction Severity Reaction type Status Date Reported Comments Source Sulfamethoxazole Unknown Allergy to Substance Active 04/23/2018 [facility] Trimethoprim Unknown Allergy to Substance Active 04/23/2018 [facility] Immunizations Immunization Date Given Site Status Last Updated Comments Source Tdap (Tetanus Toxoid, Reduced Diphtheria Toxoid And Acellular Pertussis, Absorbed) 09/03/2017 completed [facility] Influenza Vaccine 04/17/2016 completed [facility] Herpes Zoster Vaccine In Clinic 01/08/2016 Not Given Deferred: Other - Patient requesting to wait til next visit [facility] Tdap (Tetanus Toxoid, Reduced Diphtheria Toxoid And Acellular Pertussis, Absorbed) 07/19/2007 completed [facility] TDap (Tetanus Toxoid, Reduced Diphtheria Toxoid And Acellular Pertussis, Absorbed) 07/19/2007 completed [facility] TD (7+yrs) TETANUS AND DIPHTHERIA TOXOIDS), PRESERVATIVE FREE 06/17/2005 completed [facility] Results Order Name Results Value Reference Range Date Interpretation Comments Source 12 LEAD EKG 12 LEAD EKG FOR [facility] Test Date:2018-08-03 Pat Name: BEN Quinonezpartment: [id number] : Gender: FTechnician: [id number] :1955 Requested By: RAMAN MELISSA Order Number: [id number] MD: Monika Bolaños Measurements IntervalsAxis Rate: 74 P:60 IN: 136QRS:94 QRSD: 106T:82 QT: 369 QTc:411 Interpretive Statements SINUS RHYTHM BORDERLINE RIGHT AXIS DEVIATION Electronically Signed On 08-03-2018 11:53:05 CDT by Monika Bolaños 08/03/2018 [facility] Urine color determination YELLOW YELLOW 04/23/2018 [facility] Urine clarity HAZY CLEAR 04/23/2018 [facility] Specific gravity of Urine by Test strip 1.020 1.010 - 1.025 04/23/2018 [facility] Urine pH measurement by automated test strip 7 5 - 7 04/23/2018 [facility] Urine leukocyte esterase detection by dipstick 1+ NEGATIVE 04/23/2018 [facility] Urine nitrite detection NEGATIVE NEGATIVE 04/23/2018 [facility] Urine protein measurement by test strip (mass/volume) 2+ NEGATIVE 04/23/2018 [facility] Urine glucose detection NEGATIVE NEGATIVE 04/23/2018 [facility] Urine ketones detection by automated test strip NEGATIVE NEGATIVE 04/23/2018 [facility] Urine urobilinogen measurement by test strip (mass/volume) 0.2 0.2 - 1 04/23/2018 [facility] Urine total bilirubin measurement (mass/volume) NEGATIVE NEGATIVE 04/23/2018 [facility] Urine erythrocytes detection NEGATIVE NEGATIVE 04/23/2018 [facility] Automated urine sediment leukocyte count by microscopy (number/high power field) 11-20 0 - 5 04/23/2018 [facility] Erythrocytes detection in urine sediment by light microscopy 0-5 0 - 5 04/23/2018 [facility] Bacteria detection in urine sediment by light microscopy FEW NONE 04/23/2018 [facility] Epithelial cells detection in urine sediment by light microscopy FEW NONE 04/23/2018 [facility] Amorphous sediment detection in urine sediment by light microscopy FEW FEW 04/23/2018 [facility] Coarse granular casts detection in urine sediment by light microscopy 1-5 0 04/23/2018 [facility] Mucus detection in urine sediment by light microscopy FEW RARE 04/23/2018 [facility] Blood leukocytes automated count (number/volume) 7.64 4.8 - 10.8 04/23/2018 [facility] Blood erythrocytes automated count (number/volume) 4.07 3.6 - 5.1 04/23/2018 [facility] Blood hemoglobin measurement (moles/volume) 12.2 12.0 - 16.0 04/23/2018 [facility] Automated blood hematocrit (volume fraction) 37.6 34.2 - 44.1 04/23/2018 [facility] Automated erythrocyte mean corpuscular volume 92.4 81 - 99 04/23/2018 [facility] Automated erythrocyte mean corpuscular hemoglobin (mass per erythrocyte) 30.0 28 - 32 04/23/2018 [facility] Automated erythrocyte mean corpuscular hemoglobin concentration measurement (mass/volume) 32.4 31 - 35 04/23/2018 [facility] RDW BldCo-Rto 12.4 11.7 - 14.4 04/23/2018 [facility] Automated blood platelet count (count/volume) 213 140 - 360 04/23/2018 [facility] Automated blood segmented neutrophil count as percentage of total leukocytes 70.0 38.7 - 80.0 04/23/2018 [facility] Automated blood lymphocyte count as percentage ot total leukocytes 23.6 18.0 - 39.1 04/23/2018 [facility] Automated blood monocyte count as percentage of total leukocytes 5.1 4.4 - 11.3 04/23/2018 [facility] Automated blood eosinophil count as percentage of total leukocytes 0.5 0.0 - 6.0 04/23/2018 [facility] Automated blood basophil count as percentage of total leukocytes 0.4 0.0 - 1.0 04/23/2018 [facility] IM GRANULOCYTES % 0.4 0.0 - 1.0 04/23/2018 [facility] Automated blood neutrophil count 5.4 2.1 - 6.9 04/23/2018 [facility] Blood lymphocytes count (number/volume) 1.8 1.0 - 3.2 04/23/2018 [facility] Blood monocytes automated count (number/volume) 0.4 0.2 - 0.8 04/23/2018 [facility] Automated blood eosinophil count 0.0 0.0 - 0.4 04/23/2018 [facility] Automated blood basophil count (count/volume) 0.0 0.0 - 0.1 04/23/2018 [facility] Absolute Immature Granulocyte (auto 0.03 0 - 0.1 04/23/2018 [facility] Prothrombin time (PT) in platelet poor plasma by coagulation assay 13.5 11.9 - 14.5 04/23/2018 [facility] INR in Platelet poor plasma by Coagulation assay 0.95 04/23/2018 [facility] Activated partial thromboplastin time (aPTT) in platelet poor plasma bycoagulation assay 21.8 23.8 - 35.5 04/23/2018 [facility] Serum or plasma sodium measurement (moles/volume) 133 136 - 145 04/23/2018 [facility] Serum or plasma potassium measurement (moles/volume) 4.5 3.5 - 5.1 04/23/2018 [facility] Serum or plasma chloride measurement (moles/volume) 98 98 - 107 04/23/2018 [facility] Serum or plasma carbon dioxide, total measurement (moles/volume) 24 22 - 29 04/23/2018 [facility] Serum or plasma anion gap 15.5 8 - 16 04/23/2018 [facility] Serum or plasma urea nitrogen measurement (mass/volume) 15 7 - 26 04/23/2018 [facility] Serum or plasma creatinine measurement (mass/volume) 0.83 0.57 - 1.11 04/23/2018 [facility] Serum or plasma urea nitrogen/creatinine mass ratio 18 6 - 25 04/23/2018 [facility] Estimated glomerular filtration rate (GFR) determination > 60 60 04/23/2018 [facility] Glucose measurement 181 74 - 118 04/23/2018 [facility] Serum or plasma calcium measurement (mass/volume) 9.2 8.4 - 10.2 04/23/2018 [facility] Lactic Acid Level 14.1 4.5 - 19.8 04/23/2018 [facility] Serum or plasma magnesium measurement (mass/volume) 2.5 1.3 - 2.1 04/23/2018 [facility] Serum or plasma total bilirubin measurement (mass/volume) 0.5 0.2 - 1.2 04/23/2018 [facility] Aspartate Amino Transf (AST/SGOT) 73 5 - 34 04/23/2018 [facility] Serum or plasma alanine aminotransferase measurement (enzymatic activity/volume) 63 0 - 55 04/23/2018 [facility] Serum or plasma protein measurement (mass/volume) 7.3 6.5 - 8.1 04/23/2018 [facility] Serum or plasma albumin measurement (mass/volume) 3.5 3.5 - 5.0 04/23/2018 [facility] Plasma globulin measurement (mass/volume) 3.8 2.3 - 3.5 04/23/2018 [facility] Serum or plasma albumin/globulin mass ratio 0.9 0.8 - 2.0 04/23/2018 [facility] Serum or plasma alkaline phosphatase measurement (enzymatic activity/volume) 91 40 - 150 04/23/2018 [facility] BNP Bld-mCnc < 10.0 0 - 100 04/23/2018 [facility] Serum or plasma creatine kinase measurement (enzymatic activity/volume) 33 29 - 168 04/23/2018 [facility] Serum or plasma creatine kinase MB measurement (mass/volume) 0.30 0 - 5.0 04/23/2018 [facility] Troponin I measurement by highly sensitive enzyme immunoassay 0.005 0 - 0.300 04/23/2018 [facility] Serum or plasma triglyceride measurement (mass/volume) 70 0 - 149 04/12/2018 [facility] Serum or plasma cholesterol measurement (mass/volume) 167 0 - 199 04/12/2018 [facility] Serum or plasma cholesterol in LDL measurement (mass/volume) 90 60 - 130 04/12/2018 [facility] Serum or plasma cholesterol in HDL measurement (mass/volume) 63 40 - 60 04/12/2018 [facility] Serum or plasma total cholesterol/cholesterol in HDL mass ratio 2.7 3.0 - 3.6 04/12/2018 [facility] Urine opiates screening test NEGATIVE NEGATIVE 04/11/2018 [facility] Barbiturates screen, urine NEGATIVE NEGATIVE 04/11/2018 [facility] Urine phencyclidine detection by screening method NEGATIVE NEGATIVE 04/11/2018 [facility] Urine amphetamines detection by screen method > 1000 ng/mL NEGATIVE NEGATIVE 04/11/2018 [facility] Urine Methamphetamines Screen NEGATIVE NEGATIVE 04/11/2018 [facility] Urine benzodiazepines detection by screening method NEGATIVE NEGATIVE 04/11/2018 [facility] Urine cocaine measurement (mass/volume) NEGATIVE NEGATIVE 04/11/2018 [facility] Urine cannabinoids detection by screening method NEGATIVE NEGATIVE 04/11/2018 [facility] Urine methadone screen NEGATIVE NEGATIVE 04/11/2018 [facility] Influenza virus A and B antigen identification by immunofluorescence NEGATIVE NEGATIVE 04/11/2018 [facility] Serum or plasma amylase measurement (enzymatic activity/volume) 58 25 - 125 04/11/2018 [facility] Serum or plasma lipase measurement (enzymatic activity/volume) 37 8 - 78 04/11/2018 [facility] Serum or plasma thyrotropin measurement by detection limit <=0.005 miu/l (units/volume) 0.560 0.350 - 4.940 04/11/2018 [facility] Blood culture NO GROWTH AFTER 5 DAYS, FINAL REPORT 04/11/2018 [facility] MAMMOGRAM BILAT SCREEN DIGITAL <p>IMPRESSION: BENIGN</p><p> </p><p>There is no mammographic evidence of malignancy. A 1 year </p><p>scr eening mammogram is recommended.</p><p> </p><p>I have reviewed the study and agree with the findings in the </p><p>report.</p><p> </p><p>This document has been electronically signed.</p><p> </p><p>Carolyn Fitzgerald M.D.</p><p>ks,ct/:03/08/2018 08:20:45</p><p> </p><p>Cartoon Artist: Adry Little [facility]</p><p>letter sent: Benign Exam</p><p>Mammogram BI-RADS: 2 Benign G0202 z12.31</p> IMPRESSION: BENIGN There is no mammographic evidence of malignancy. A 1 year screening mammogram is recommended. I have reviewed the study and agree with the findings in the report. This document has been electronically signed. Carolyn Fitzgerald M.D.ks,ct/:03/08/2018 08:20:45 Cartoon Artist: [facility] ExamMammogram BI-RADS: 2 Benign G0202 z12.31 03/08/2018 [facility] MAMMOGRAM BILAT SCREEN DIGITAL <p> </p><p>#[id number] - MAMMOGRAM BILAT SCREEN DIGITAL</p><p>BILATERAL DIGITAL SCREENING MAMMOGRAM WITH CAD: 03/08/2018</p><p>CLINICAL: Annual.</p><p> </p><p>Comparison is made to exams dated:03/25/2017, 02/07/2016 </p><p>[facility], and 08/25/2012 [facility].</p><p>There are scattered fibroglandular elements in both breasts that </p><p>could obscure a lesion on mammography.</p><p>Current study was also evaluated with a Computer Aided Detection </p><p>(CAD) system.</p>&lt ;p> </p><p>There are benign calcifications and an intramammary node in both </p><p>breasts.There are mole markers on the left breast.No &am p;lt;/p><p>significant masses, calcifications, or other findings are seen in </p><p>either breast.There has been no significant interval change.</p><p> </p> #[id number] - MAMMOGRAM BILAT SCREEN DIGITALBILATERAL DIGITAL SCREENING MAMMOGRAM WITH CAD: 03/08/2018CLINICAL: Annual. Comparison is made to exams dated:03/25/2017, 02/07/2016 [facility], and 08/25/2012 [facility].There are scattered fibroglandular elements in both breasts that could obscure a lesion on mammography.Current study was also evaluated with a Computer Aided Detection (CAD) system. There are benign calcifications and an intramammary node in both breasts.There are mole markers on the left breast.No significant masses, calcifications, or other findings are seen in either breast.There has been no significant interval change. 03/08/2018 [facility] MAMMOGRAM BILAT SCREEN DIGITAL <p styleCode="header">Interface, Rad/Mammog In - 03/08/2018 9:36 AM [facility]</p><p>
<span>#[id number] - MAMMOGRAM BILAT SCREEN DIGITAL</span>
<span>BILATERAL DIGITAL SCREENING MAMMOGRAM WITH CAD: 03/08/2018</span>
<span>CLINICAL: Annual. </span>

<span>Comparison is made to exams dated: 03/25/2017, 02/07/2016 </span>
<span>[facility], and 08/25/2012 [facility]. </span>
<span>There are scattered fibroglandular elements in both breasts that </span>
<span>could obscure a lesion on mammography. </span>
<span>Current study was also evaluated with a Computer Aided Detection </span>
<span>(CAD) system. </span>

<span>There are benign calcifications and an intramammary node in both </span>
<span>breasts. There are mole markers on the left breast. No </span>
<span>significant masses, calcifications, or other findings are seen in </span>
<span>either breast. There has been no significant interval change.</span>

<span>IMPRESSION</span>
<span>IMPRESSION: BENIGN</span>

<span>There is no mammographic evidence of malignancy. A 1 year </span>
<span>screening mammogram is recommended. </ span>

<span>I have reviewed the study and agree with the findings in the </span>
<span>report.</span>

<span>This document has been electronically signed.</span>

<span>Carolyn Fitzgerald M.D.</span>
<span>mt,ct/:03/08/2018 08:20:45 </span>

<span>Cartoon Artist: Adry Little [facility]</span>
<span>letter sent: Benign Exam </span>
&a mp;lt;span>Mammogram BI-RADS: 2 Benign G0202 z12.31</span></p> Interface, Rad/Mammog In - 03/08/2018 9:36 AM [facility] #[id number] - MAMMOGRAM BILAT SCREEN DIGITAL BILATERAL DIGITAL SCREENING MAMMOGRAM WITH CAD: 03/08/2018 CLINICAL: Annual. Comparison is made to exams dated: 03/25/2017, 02/07/2016 [facility], and 08/25/2012 [facility]. There are scattered fibroglandular elements in both [...] This document has been electronically signed. Carolyn crow,ct/:03/08/2018 08:20:45 Cartoon Artist: Adry Little [facility] letter sent: Benign Exam Mammogram BI-RADS: 2 Benign G0202 z12.31 03/08/2018 [facility] OCCULT BLOOD ICT <td ID="[id number]">Occult Blood ICT</td><td>Negative</td><td>NEG</td><td>[facility]</td><td ID="[id number]"/> Negative NEG 01/19/2018 [facility] HEMOGLOBIN A1C <td ID="[id number]">Hemoglobin A1c</td><td><span style="flagData">6.3</span><span style="flagData"> (H)</span></td><td>4.3 - 6.1 %</td><td>BT DIAGNOSTIC IMMUNOLOGY</td><td ID="[id number]"/> 6.3 4.3 - 6.1 01/12/2018 [facility] HEMOGLOBIN A1C Est Average Gluc 134.1 01/12/2018 [facility] HEMOGLOBIN A1C Lab Interpretation Abnormal 01/12/2018 [facility] CBC/DIFF <td ID="[id number]">WBC</td><td>6.4</td><td>4.5 - 11.0 K/uL</td><td>BT MAIN-STATION 2</td><td ID="[id number]"/> 6.4 4.5 - 11 01/11/2018 [facility] CBC/DIFF <td ID="[id number]">RBC</td><td><span style="flagData">4.09</span><span style="flagData"> (L)</span></td><td>4.20 - 5.40 M/uL</td><td>BT MAIN-STATION 2</td><td ID="[id number]"/> 4.09 4.20 - 5.40 01/11/2018 [facility] CBC/DIFF <td ID="[id number]">Hemoglobin</td><td>12.4</td><td>12.0 - 16.0 g/dL</td><td>BT MAIN-STATION 2</td><td ID="[id number]"/> 12.4 12 - 16 01/11/2018 [facility] CBC/DIFF <td ID="[id number]">Hematocrit</td><td>38.6</td><td>37.0 - 47.0 %</td><td>BT MAIN-STATION 2</td><td ID="[id number]"/> 38.6 37 - 47 01/11/2018 [facility] CBC/DIFF <td ID="[id number]">MCV</td><td><span style="flagData">94</span><span style="flagData"> (H)</span></td><td>82 - 92 fL</td><td>BT MAIN-STATION 2</td><td ID="[id number]"/> 94 82 - 92 01/11/2018 [facility] CBC/DIFF <td ID="[id number]">MCH</td><td>30.3</td><td>27.0 - 32.0 pg</td><td>BT MAIN-STATION 2</td><td ID="[id number]"/> 30.3 27 - 32 01/11/2018 [facility] CBC/DIFF <td ID="[id number]">MCHC</td><td>32.1</td><td>32.0 - 36.0 g/dL</td><td>BT MAIN-STATION 2</td><td ID="[id number]"/> 32.1 32 - 36 01/11/2018 [facility] CBC/DIFF <td ID="[id number]">RDW</td><td>43.9</td><td>36.4 - 46.3 fL</td><td>BT MAIN-STATION 2</td><td ID="[id number]"/> 43.9 36.4 - 46.3 01/11/2018 [facility] CBC/DIFF <td ID="[id number]">Platelet</td><td>248</td><td>150 - 400 K/uL</td><td>BT MAIN-STATION 2</td><td ID="[id number]"/> 248 150 - 400 01/11/2018 [facility] CBC/DIFF <td ID="[id number]">Mean Platelet Volume</td><td>11.9</td><td>9.4 - 12.4 fL</td><td>BT MAIN-STATION 2</td><td ID="[id number]"/> 11.9 9.4 - 12.4 01/11/2018 [facility] CBC/DIFF Percent NRBC 0.0 01/11/2018 [facility] CBC/DIFF Absolute NRBC 0.00 01/11/2018 [facility] CBC/DIFF <td ID="[id number]">Neutrophil</td><td><span style="flagData">72.8</span><span style="flagData"> (H)</span></td><td>34.0 - 70.0 %</td><td>BT MAIN-STATION 2</td><td ID="[id number]"/> 72.8 34 - 70 01/11/2018 [facility] CBC/DIFF <td ID="[id number]">Lymphocyte</td><td>20.2</td><td>20.0 - 50.0 %</td><td>BT MAIN-STATION 2</td><td ID="[id number]"/> 20.2 20 - 50 01/11/2018 [facility] CBC/DIFF <td ID="[id number]">Monocyte</td><td>5.6</td><td>5.0 - 12.0 %</td><td>BT MAIN-STATION 2</td><td ID="[id number]"/> 5.6 5 - 12 01/11/2018 [facility] CBC/DIFF <td ID="[id number]">Eosinophil</td><td><span style="flagData">0.6</span><span style="flagData"> (L)</span></td><td>0.7 - 5.0 %</td><td>BT MAIN-STATION 2</td><td ID="[id number]"/> 0.6 0.7 - 5 01/11/2018 [facility] CBC/DIFF <td ID="[id number]">Basophil</td><td>0.5</td><td>0.1 - 1.2 %</td><td>BT MAIN-STATION 2</td><td ID="[id number]"/> 0.5 0.1 - 1.2 01/11/2018 [facility] CBC/DIFF Pct Immat Gran 0.3 0.0 - 0.5 01/11/2018 [facility] CBC/DIFF Neutrophil, Abs 4.68 1.56 - 6.13 01/11/2018 [facility] CBC/DIFF Lymphocyte, Abs 1.30 1.18 - 3.74 01/11/2018 [facility] CBC/DIFF Monocyte, Abs 0.36 0.24 - 0.36 01/11/2018 [facility] CBC/DIFF Eosinophil, Abs 0.04 0.04 - 0.36 01/11/2018 [facility] CBC/DIFF Basophil, Abs 0.03 0.01 - 0.08 01/11/2018 [facility] CBC/DIFF Absol Immat Gran 0.02 0 - 0.03 01/11/2018 [facility] CBC/DIFF Lab Interpretation Abnormal 01/11/2018 [facility] COMPREHENSIVE METABOLIC PANEL(DBIL NOT INCLUDED) <td ID="[id number]">Albumin</td><td>4.8</td><td>3.7 - 5.3 g/dL</td><td>BT MAIN-STATION 1</td><td ID="[id number]"/> 4.8 3.7 - 5.3 01/11/2018 [facility] COMPREHENSIVE METABOLIC PANEL(DBIL NOT INCLUDED) <td ID="[id number]">Calcium</td><td>9.5</td><td>8.6 - 10.3 mg/dL</td><td>BT MAIN-STATION 1</td><td ID="[id number]"/> 9.5 8.6 - 10.3 01/11/2018 [facility] COMPREHENSIVE METABOLIC PANEL(DBIL NOT INCLUDED) <td ID="[id number]">CO2</td><td>29</td><td>21 - 31 mmol/L</td><td>BT MAIN-STATION 1</td><td ID="[id number]"/> 29 21 - 31 01/11/2018 [facility] COMPREHENSIVE METABOLIC PANEL(DBIL NOT INCLUDED) <td ID="[id number]">Chloride</td><td>102</td><td>98 - 107 mmol/L</td><td>BT MAIN-STATION 1</td><td ID="[id number]"/> 102 98 - 107 01/11/2018 [facility] COMPREHENSIVE METABOLIC PANEL(DBIL NOT INCLUDED) <td ID="[id number]">Creatinine</td><td><span style="flagData">0.50</span><span style="flagData"> (L)</span></td><td>0.6 - 1.2 mg/dL</td><td>BT MAIN-STATION 1</td><td ID="[id number]"/> 0.50 0.6 - 1.2 01/11/2018 [facility] COMPREHENSIVE METABOLIC PANEL(DBIL NOT INCLUDED) <td ID="[id number]">Glucose</td><td><span style="flagData">114</span><span style="flagData"> (H)</span></td><td>70 - 110 mg/dL</td><td>BT MAIN-STATION 1</td><td ID="[id number]"/> 114 70 - 110 01/11/2018 [facility] COMPREHENSIVE METABOLIC PANEL(DBIL NOT INCLUDED) <td ID="[id number]">Alk Phos</td><td>70</td><td>34 - 104 U/L</td><td>BT MAIN-STATION 1</td><td ID="[id number]"/> 70 34 - 104 01/11/2018 [facility] COMPREHENSIVE METABOLIC PANEL(DBIL NOT INCLUDED) <td ID="[id number]">Potassium</td><td>4.4</td><td>3.5 - 5.1 mmol/L</td><td>BT MAIN-STATION 1</td><td ID="[id number]"/> 4.4 3.5 - 5.1 01/11/2018 [facility] COMPREHENSIVE METABOLIC PANEL(DBIL NOT INCLUDED) <td ID="[id number]">Sodium</td><td>138</td><td>136 - 145 mmol/L</td><td>BT MAIN-STATION 1</td><td ID="[id number]"/> 138 136 - 145 01/11/2018 [facility] COMPREHENSIVE METABOLIC PANEL(DBIL NOT INCLUDED) <td ID="[id number]">ALT</td><td>16</td><td>7 - 52 U/L</td><td>BT MAIN-STATION 1</td><td ID="[id number]"/> 16 7 - 52 01/11/2018 [facility] COMPREHENSIVE METABOLIC PANEL(DBIL NOT INCLUDED) <td ID="[id number]">AST</td><td>18</td><td>13 - 39 U/L</td><td>BT MAIN-STATION 1</td><td ID="[id number]"/> 18 13 - 39 01/11/2018 [facility] COMPREHENSIVE METABOLIC PANEL(DBIL NOT INCLUDED) <td ID="[id number]">Urea Nitrogen</td><td>11</td><td>7 - 25 mg/dL</td><td>BT MAIN-STATION 1</td><td ID="[id number]"/> 11 7 - 25 01/11/2018 [facility] COMPREHENSIVE METABOLIC PANEL(DBIL NOT INCLUDED) <td ID="[id number]">T Bilirubin</td><td>0.4</td><td>0.2 - 1.2 mg/dL</td><td>BT MAIN-STATION 1</td><td ID="[id number]"/> 0.4 0.2 - 1.2 01/11/2018 [facility] COMPREHENSIVE METABOLIC PANEL(DBIL NOT INCLUDED) <td ID="[id number]">T Protein</td><td>8.0</td><td>6.0 - 8.3 g/dL</td><td>BT MAIN-STATION 1</td><td ID="[id number]"/> 8.0 6 - 8.3 01/11/2018 [facility] COMPREHENSIVE METABOLIC PANEL(DBIL NOT INCLUDED) GFR, Estimated >60 mL/min/1.73 m2 01/11/2018 [facility] COMPREHENSIVE METABOLIC PANEL(DBIL NOT INCLUDED) GFR, Estim, Afr-Am >60 mL/min/1.73 m2 01/11/2018 [facility] COMPREHENSIVE METABOLIC PANEL(DBIL NOT INCLUDED) Anion Gap 7 01/11/2018 [facility] COMPREHENSIVE METABOLIC PANEL(DBIL NOT INCLUDED) Lab Interpretation Abnormal 01/11/2018 [facility] LIPID PROFILE <td ID="[id number]">Cholesterol</td><td><span>223</span>
<span style="allIndent"><span style="cellHeader">Comment: </span>
<span ID="[id number]" style="pre">REFERENCE RANGE:
Desirable: <200 mg/dL
Borderline: 200-240 mg/dL
High Risk: >240 mg/dL

</span></span></td><td>mg/dL</td><td>BT MAIN-STATION 1</td><td ID=&amp ;quot;[id number]"/> 223 01/11/2018 REFERENCE RANGE:
Desirable: <200 mg/dL
Borderline: 200-240 mg/dL
High Risk: >240 mg/dL

[facility] LIPID PROFILE <td ID="[id number]">Triglyceride</td><td><span>82</span>
<span style="allIndent"><span style="cellHeader">Comment: </span>
<span ID="[id number]" style="pre">REFERENCE RANGE:
Normal: <150 mg/dL
Borderline High: 150-199 mg/dL
High: 200-499 mg/dL
Very High: >dc=424 mg/dL

</span></span></td><td><150 mg/dL</td><td>BT MAIN- STATION 1</td><td ID="[id number]"/> 82 <150 01/11/2018 REFERENCE RANGE:
Normal: <150 mg/dL
Borderline High: 150-199 mg/dL
High: 200-499 mg/dL
Very High: >ii=568 mg/dL

[facility] LIPID PROFILE <td ID="[id number]">HDL</td><td><span>73</span>
<span style="allIndent"><span style="cellHeader">Comment: </span>
<span ID="[id number]" style="pre">Increased CHD risk: <40 mg/dL
Decreased CHD risk: >60 mg/dL

</span></span>&am p;lt;/td><td>mg/dL</td><td>BT MAIN-STATION 1</td><td ID="[id number]"/> 73 01/11/2018 Increased CHD risk: <40 mg/dL
Decreased CHD risk: >60 mg/dL

[facility] LIPID PROFILE <td ID="[id number]">LDL</td><td><span>134</span>
<span style="allIndent"><span style="cellHeader">Comment: </span>
<span ID="[id number]" style="pre">REFERENCE RANGE:
Optimal: <100 mg/dL
Near Optimal: 100-129 mg/dL
Borderline High: 130-159 mg/dL
High: 160-189 mg/dL
Very High: >uz=192 mg/dL

</span></span></td><td>mg/dL</td><td>BT MAIN-STATION 1</td><td ID="[id number]"/> 134 01/11/2018 REFERENCE RANGE:
Optimal: <100 mg/dL
Near Optimal: 100-129 mg/dL
Borderline High: 130-159 mg/dL
High: 160-189 mg/dL
Very High: >aj=082 mg/dL

[facility] Pathology Reports No Data Provided for This Section Diagnostic Reports Report Value Date Source XRAY SHOULDER 2 VIEWS MIN IMPRESSION: No acute osseous lesion. Signed By: Albert Abdalla MD, 08/03/2018 12:28 PM Left shoulder 2 views HISTORY:left shoulder pain COMPARISON: None DISCUSSION:No displaced fracture or malalignment.Acromioclavicular arthrosis. Glenohumeral joint intact.The visualized soft tissues appear unremarkable. Interface, Rad/Mammog In - 08/03/2018 12:33 PM CDTLeft shoulder 2 views HISTORY: left shoulder pain COMPARISON: None DISCUSSION: No displaced fracture or malalignment. Acromioclavicular arthrosis. Glenohumeral joint intact. The visualized soft tissues appear unremarkable. IMPRESSION IMPRESSION: No acute osseous lesion. Signed By: Albert Abdalla MD, 08/03/2018 12:28 PM 08/03/2018 [facility] BONE DENSITY (DUAL PHOTON) IMPRESSION: Finding is suggesting Osteopenia. There is focal osteoporosis in L4 withT score of -2.7. Signed By: Gorge Canada MD, 09/06/2017 11:55 AM EXAM: DEXA INDICATION: Bone mineral density screening TECHNIQUE: The patient underwent bone mineral densitometry using [employer] SL dual energy x-ray absorptiometry (DEXA).T-score is tocompare the female peak bone mineral density (BMD). WHO definition ofosteoporosis is T<- 2.5 and osteopenia is T <-1.0. FINDINGS:Region...........BMD.....T scoreSpine L1-4....... 0.806 ..... -2.2Femoral Neck..... 0.645 ..... -1.8Total hip........ 0.748 ..... -1.6 Interface, Rad/Mammog In - 09/06/2017 12:01 PM CDT EXAM: DEXA INDICATION: Bone mineral density screening TECHNIQUE: The patient underwent bone mineral densitometry using [employer] Discovery SL dual energy x-ray absorptiometry (DEXA). [...] By: Gorge Canada MD, 09/06/2017 11:55 AM 09/06/2017 [facility] Consultation Notes No Data Provided for This Section Discharge Summaries No Data Provided for This Section History and Physicals No Data Provided for This Section Vital Signs Vital Sign Value Date Comments Source Systolic (mm Hg) 150 08/03/2018 [facility] Diastolic (mm Hg) 74 08/03/2018 [facility] Heart Rate 92 08/03/2018 [facility] Temperature Oral (F) 36.72 Sameera 08/03/2018 [facility] Respitory Rate 18 08/03/2018 [facility] Height 160 cm 08/03/2018 [facility] Weight 67.132 08/03/2018 [facility] Systolic (mm Hg) 131 01/11/2018 [facility] Diastolic (mm Hg) 69 01/11/2018 [facility] Heart Rate 83 01/11/2018 [facility] Temperature Oral (F) 37.06 Sameera 01/11/2018 [facility] Respitory Rate 18 01/11/2018 [facility] Height 162.6 cm 01/11/2018 [facility] Weight 70.67 01/11/2018 [facility] Encounters Location Location Details Encounter Type Encounter Number Reason For Visit Attending Provider ADM Date DC Date Status Source [facility] [place] Ref[place] [id number] Raman Melissa MD 08/04/2017 [facility] [place] Orders Only [id number] Raman Melissa MD 09/03/2017 [facility] [place] Office Visit [id number] Raman Melissa MD 09/03/2017 09/03/2017 [facility] Radiology [facility] Encounter [id number] Raman Melissa MD 09/06/2017 09/07/2017 [facility] [place] Office Visit [id number] Bryan Palmer MD 10/14/2017 10/14/2017 [facility] [place] Refill [id number] Raman Melissa MD 11/15/2017 [facility] [place] Refill [id number] Raman Melissa MD 11/17/2017 [facility] Ophthalmology/Optometry [facility] Office Visit [id number] Dahlia Argueta OD 12/02/2017 12/02/2017 [facility] [place] Refill [id number] Raman Melissa MD 01/03/2018 [facility] [place] Office Visit [id number] Raman Melissa MD 01/11/2018 01/11/2018 [facility] Laboratory [place] Lab Appointment [id number] Raman Melissa MD 01/11/2018 01/11/2018 [facility] [place] Orders Only [id number] Raman Melissa MD 01/19/2018 [facility] [place] Refill [id number] Raman Melissa MD 02/15/2018 [facility] Ophthalmology/Optometry [facility] Office Visit [id number] Dahlia Argueta OD 03/02/2018 03/02/2018 [facility] Mammography [place] Ancillary Procedure [id number] Raman Melissa MD 03/08/2018 03/08/2018 [facility] Discharged Inpatient [id number] SHAILESH JACKSON MD 04/11/2018 04/15/2018 [facility] Departed Emergency Room [id number] VAUGHN CANNON MD 04/23/2018 04/23/2018 [facility] [place] Ref[place] [id number] Raman Melissa MD 05/06/2018 [facility] Travel [id number] 08/03/2018 [facility] C[facility]OMER RELATIONS [facility] Telephone [id number] Paco Villavicencio 08/03/2018 [facility] [place] Office Visit [id number] Raman Melissa MD 08/03/2018 08/03/2018 [facility] Radiology [place] Ancillary Procedure [id number] Raman Melissa MD 08/03/2018 08/03/2018 [facility] [place] Refill [id number] Raman Melissa MD 08/30/2018 [facility] Travel [id number] 09/13/2018 [facility] Procedures Procedure Code Date Perfomer Comments Source XRAY SHOULDER 2 [place] [address] 08/03/2018 [facility] 12 LEAD EKG 54013 08/03/2018 [facility] MAMMOGRAM BILAT SCREEN DIGITAL G0202 03/08/2018 [facility] OCCULT BLOOD ICT 69329 01/19/2018 [facility] HEMOGLOBIN A1C 22436 01/11/2018 [facility] LIPID PROFILE [id number] 01/11/2018 [facility] CBC/DIFF 23518 01/11/2018 [facility] COMPREHENSIVE METABOLIC PANEL(DBIL NOT INCLUDED) 07692 01/11/2018 [facility] BONE DENSITY (DUAL PHOTON) 77165 09/06/2017 [facility] Assessment and Plan No Data Provided for This Section Plan of Care Plan of Care Date Source Breast Cancer Scrn (Yearly) 03/08/2019 [facility] Cervical Cancer Scrn (3 Yrs) 02/06/2019 [facility] Colorectal Cancer Scrn Annual (FIT/FOBT) Age 50 to 75 01/19/2019 [facility] Upcoming EncountersDateTypeSpecialtyCare TeamDescription 09/20/2018 Office Visit Family Practice Amilcar Juan III, MD[address] [place] [address] [place] [address] [phone] (Fax) results Health MaintenanceDue DateLast DoneComments Colorectal Cancer Scrn Annual (FIT/FOBT) Age 50 to 75 01/19/2019 01/19/2018, 01/13/2017, 01/10/2016 Cervical Cancer Scrn (3 Yrs) 02/06/2019 02/07/2016 Breast Cancer Scrn (Yearly) 03/08/2019 03/08/2018, 03/25/2017, 02/07/2016, Additional history exists 09/13/2018 [facility] Upcoming EncountersDateTypeSpecialtyCare TeamDescription 09/13/2018 Ancillary Procedure Radiology 09/20/2018 Office Visit Family Practice Raman Melissa MD[address] [facility] [phone] (Fax) results Health MaintenanceDue DateLast DoneComments Colorectal Cancer Scrn Annual (FIT/FOBT) Age 50 to 75 01/19/2019 01/19/2018, 01/13/2017, 01/10/2016 Cervical Cancer Scrn (3 Yrs) 02/06/2019 02/07/2016 Breast Cancer Scrn (Yearly) 03/08/2019 03/08/2018, 03/25/2017, 02/07/2016, Additional history exists 08/22/2018 [facility] Upcoming EncountersDateTypeSpecialtyCare TeamDescription 08/03/2018 Office Visit Family Practice Raman Melissa MD[address] [place] [address]#[address] [place] [address] [phone] (Fax) Arrived Health MaintenanceDue DateLast DoneComments Colorectal Cancer Scrn Annual (FIT/FOBT) Age 50 to 75 01/19/2019 01/19/2018, 01/13/2017, 01/10/2016 Cervical Cancer Scrn (3 Yrs) 02/06/2019 02/07/2016 Breast Cancer Scrn (Yearly) 03/08/2019 03/08/2018, 03/25/2017, 02/07/2016, Additional history exists 08/03/2018 [facility] Upcoming EncountersDateTypeSpecialtyCare TeamDescription 08/03/2018 Office Visit Family Practice Raman Melissa MD[address] [place] [address]#[address] [place] [address] [phone] (Fax) f/u hpb, meds Health MaintenanceDue DateLast DoneComments Colorectal Cancer Scrn Annual (FIT/FOBT) Age 50 to 75 01/19/2019 01/19/2018, 01/13/2017, 01/10/2016 Cervical Cancer Scrn (3 Yrs) 02/06/2019 02/07/2016 Breast Cancer Scrn (Yearly) 03/08/2019 03/08/2018, 03/25/2017, 02/07/2016, Additional history exists 07/27/2018 [facility] Discharge Date 04/23/18 4:21pm Disposition HOME, SELF-CARE Condition at Discharge Stable Instructions/Education Provided Urinary Tract Infection - Women Forms Provided Work/School Excuse Prescriptions See Medication Section Referrals Md Shin Order Date: Call for an appointment Additional Instructions/Education Take medication as prescribed Follow up with PCP and cardiology in a couple of days 04/23/2018 [facility] Social History Social History Date Source Tobacco UseTypesPacks/DayYears UsedDate Never Smoker Smokeless Tobacco: Never Used Tobacco Cessation: Counseling Given: No Alcohol UseDrinks/Weekoz/WeekComments No Sex Assigned at BirthDate Recorded Not on file Job Start DateOccupationIndustry Not on file Not on file Not on file Travel HistoryTravel StartTravel End No recent travel history available. 08/03/2018 [facility] No social history information available. 04/23/2018 [facility] Family History Value Date Source Medical HistoryRelationNameComments Arthritis Father Cancer Mother pancreas cancer Diabetes Sister Heart Sister arrhythmia Hypertension Sister Hypothyroid Sister RelationNameStatusComments Brother Alive Father (Age 70) cirrhosis hepatic. Maternal Grandfather Maternal Grandmother Mother (Age 50) cancer pancreas Paternal Grandfather Paternal Grandmother Sister Alive Sister Sister Sister Sister 09/13/2018 [facility] Medical HistoryRelationNameComments Arthritis Father Cancer Mother pancreas cancer Diabetes Sister Heart Sister arrhythmia Hypertension Sister Hypothyroid Sister RelationNameStatusComments Brother Alive Father (Age 70) cirrhosis hepatic. Maternal Grandfather Maternal Grandmother Mother (Age 50) cancer pancreas Paternal Grandfather Paternal Grandmother Sister Alive Sister Sister Sister Sister 08/22/2018 [facility] Medical HistoryRelationNameComments Arthritis Father Cancer Mother pancreas cancer Diabetes Sister Heart Sister arrhythmia Hypertension Sister Hypothyroid Sister RelationNameStatusComments Brother Alive Father (Age 70) cirrhosis hepatic. Maternal Grandfather Maternal Grandmother Mother (Age 50) cancer pancreas Paternal Grandfather Paternal Grandmother Sister Alive Sister Sister Sister Sister 08/03/2018 [facility] Medical HistoryRelationNameComments Arthritis Father Cancer Mother pancreas cancer Diabetes Sister Heart Sister arrhythmia Hypertension Sister Hypothyroid Sister RelationNameStatusComments Brother Alive Father (Age 70) cirrhosis hepatic. Maternal Grandfather Maternal Grandmother Mother (Age 50) cancer pancreas Paternal Grandfather Paternal Grandmother Sister Alive Sister Sister Sister Sister 07/27/2018 [facility] Medical HistoryRelationNameComments Arthritis Father Cancer Mother pancreas cancer Diabetes Sister Heart Sister arrhythmia Hypertension Sister Hypothyroid Sister RelationNameStatusComments Brother Alive Father (Age 70) cirrhosis hepatic. Maternal Grandfather Maternal Grandmother Mother (Age 50) cancer pancreas Paternal Grandfather Paternal Grandmother Sister Alive Sister Sister Sister Sister 05/04/2018 [facility] Advance Directives Order Name Results Value Date Source Advance Directives Advance Directives Directive Response Recorded Date/Time Does the patient have an advance directive? No 04/11/18 3:57pm Do you have a Directive to Physician? No 04/23/18 12:20pm Do you have a Medical Power of Engineering Operations Leader? No 04/23/18 12:20pm Do you have an out of hospital Do Not Resuscitate Order? No 04/23/18 12:20pm Do you have any special needs we should be aware of? No 04/23/18 12:20pm Do you have a support person here with you today? Yes 04/23/18 12:20pm Did patient receive Notice of Privacy Practices? Yes 04/23/18 12:20pm Did patient receive patient rights and responsibilities? Yes 04/23/18 12:20pm 04/23/2018 [facility] Functional Status No Data Provided for This Section
--- OUTSIDE RECORDS SUMMARY | 2018-11-07 22:08 | XMS REPORT | Clinical Summary ---
Author Author [facility] Organization [facility] Address Unknown Phone Unavailable Care Team Providers Care Heater Planer Operator Name Role Phone Jeronimo Melissa MD PCP [...] raNITIdine HCl (ACID Take 150 mg 0 BACK GRINDER) 150 mg tablet by mouth 2 times daily. Active nitrofurantoin TOME MIRIAM (1) 0 (MACRODANTIN) 100 mg CAPSULA(S) 8 capsule POR LA BOCA CADA SEIS HORAS. Active alendronate (FOSAMAX) 35 Take 1 tablet 12 tablet 3 mg tabletIndications: once a week 8 Osteopenia, unspecified on empty location stomach with 8 oz of water and remain upright for 30 minutes. Active amLODIPine (NORVASC) 10 Take 1 tablet 90 tablet 0 mg tabletIndications: by mouth 8 Essential hypertension, daily. benign Active lisinopril (PRINIVIL, Take 1 tablet 90 tablet 0 ZESTRIL) 20 mg by mouth 8 tabletIndications: daily. Essential hypertension, benign Active cetirizine (ZYRTEC) 10 mg Take 1 tablet 90 tablet 0 tabletIndications: by mouth 9 Seasonal allergic daily. rhinitis due to other allergic trigger 09/03/2017 Discontinued cetirizine (ZYRTEC) 10 mg Take [...] mouth 8 tabletIndications: daily. Essential hypertension, benign 05/06/2018 Discontinued cetirizine (ZYRTEC) 10 mg Take 1 tablet 90 tablet 0 tabletIndications: by mouth 8 Seasonal allergic daily. rhinitis due to other allergic trigger Active Problems Problem Noted Date Screening for osteoporosis- as per pt was told at [place] for her upper 09/03/2017 back pain Essential hypertension, benign 01/08/2016 Hx of uterine prolapse with cystocele and rectocele- s/p hysterectomy, 01/08/2016 cystocele and rectocele repair 2007 [place] Encounters Care Team Description Date Type Specialty Jeronimo Melissa MD Seasonal allergic rhinitis due to other allergic trigger 05/06/2018 Refill [facility] Jeronimo Melissa MD Preventative health care 03/08/2018 Ancillary Radiology Procedure Dahlia Argueta, GIOVANY Meibomian gland dysfunction (Primary Dx); Bilateral dry eyes 03/02/2018 Office Visit Ophthalmology Jeronimo Melissa MD Essential hypertension, benign 02/15/2018 Refill [facility] Jeronimo Melissa MD Preventative health care 01/19/2018 Orders Only [facility] Jeronimo Melissa MD Preventative health care 01/11/2018 Lab Appointment Lab Jeronimo Melissa MD Preventative health care (Primary Dx) 01/11/2018 Office Visit [facility] Jeronimo Melissa MD Seasonal allergic rhinitis due to other allergic trigger 01/03/2018 Refill [facility] Dahlia Argueta, Jeronimo Morrow MD Age-related nuclear cataract, bilateral (Primary Dx); Meibomian gland dysfunction (MGD), bilateral, both upper and lower lids; Bilateral dry eyes; Refractive error 12/02/2017 Office Visit Ophthalmology Jeronimo Melissa MD Essential hypertension, benign 11/17/2017 Refill [facility] Jeronimo Melissa MD Essential hypertension, benign 11/15/2017 Refill [facility] Bryan Palmer MD Osteopenia, unspecified location (Primary Dx); Essential hypertension, benign 10/14/2017 Office Visit [facility] Jeronimo Melissa MD Screening for osteoporosis- as per pt was told at [place] for her upper back pain 09/06/2017 Hospital Radiology Encounter Jeronimo Melissa MD Screening for osteoporosis- as per pt was told at [place] for her upper back pain (Primary Dx); Chest pain, unspecified type- went to [facility] all work up wnl (EKG, PE); Essential hypertension, benign; Preventative health care; Seasonal allergic rhinitis due to other allergic trigger 09/03/2017 Office Visit [facility] Jeronimo Melissa MD Preventative health care 09/03/2017 Orders Only [facility] Jeronimo Melissa MD Essential hypertension, benign 08/04/2017 Refill [facility] after 07/26/2017 Immunizations Name Dates Previously Given Next Due Herpes Zoster Vaccine In 01/08/2016 (Deferred: Other - Patient requesting Clinic to wait til next visit) Influenza Vaccine 04/17/2016 Tdap (Tetanus Toxoid, 07/19/2007 Reduced Diphtheria Toxoid And [...] Body Mass Index 26.74 Plan of Treatment Care Team Description Date Type Specialty Jeronimo Melissa MD [address] [place] [address] [address] [place] [address] [id number] f/u hpb, meds 08/03/2018 Office Visit Family Practice Health Maintenance Due Date Last Done Comments Colorectal Cancer Scrn 01/19/2019 01/19/2018, 01/13/2017, 01/10/2016 Annual (FIT/FOBT) Age 50 to 75 Cervical Cancer Scrn (3 02/06/2019 02/07/2016 Yrs) Breast Cancer Scrn 03/08/2019 03/08/2018, 03/25/2017, 02/07/2016, (Yearly) Additional history exists Procedures Comments Procedure Name Priority Date/Time Associated Diagnosis MAMMOGRAM BILAT SCREEN Routine 03/08/2018 [facility] DIGITAL 8:12 AM LEACH CELL OPERATOR OCCULT BLOOD ICT Routine 01/19/2018 [facility] 9:58 AM CDT COMPREHENSIVE METABOLIC Routine 01/11/2018 [facility] care PANEL(DBIL NOT INCLUDED) 10:01 AM CDT CBC/DIFF Routine 01/11/2018 [facility] 10:01 AM CDT LIPID PROFILE Routine 01/11/2018 [facility] 10:01 AM CDT HEMOGLOBIN A1C Routine 01/11/2018 [facility] 10:01 AM CDT BONE DENSITY (DUAL Routine 09/06/2017 Screening for PHOTON) 11:09 AM CDT osteoporosis- as per pt was told at [place] for her upper back pain after 07/26/2017 Results * MAMMOGRAM BILAT SCREEN DIGITAL (03/08/2018 8:12 AM LEACH CELL OPERATOR) Impressions Performed At IMPRESSION: BENIGN SMS There is no mammographic evidence of malignancy. A 1 year screening mammogram is recommended. I have reviewed the study and agree with the findings in the report. This document has been electronically signed. Carolyn Fitzgerald M.D. wi,ct/:03/08/2018 08:20:45 Email Marketing Executive: Adry Little, [facility] letter sent: Benign Exam Mammogram BI-RADS: 2 Benign G0202 z12.31 Narrative Performed At #[id number] - MAMMOGRAM BILAT SCREEN DIGITAL SMS BILATERAL DIGITAL SCREENING MAMMOGRAM WITH CAD: 03/08/2018 CLINICAL: Annual. Comparison is made to exams dated:03/25/2017, 02/07/2016 [facility], and 08/25/2012 [facility]. There are scattered fibroglandular elements in [...] Interface, Rad/Mammog In - 03/08/2018 9:36 AM LEACH CELL OPERATOR #[id number] - MAMMOGRAM BILAT SCREEN DIGITAL BILATERAL DIGITAL SCREENING MAMMOGRAM WITH CAD: 03/08/2018 CLINICAL: Annual. Comparison is made to exams dated: 03/25/2017, 02/07/2016 [facility], and 08/25/2012 [facility]. There are scattered fibroglandular elements in [...] electronically signed. Carolyn Fitzgerald M.D. ks,ct/:03/08/2018 08:20:45 Email Marketing Executive: Adry Little, [facility] letter sent: Benign Exam Mammogram BI-RADS: 2 Benign G0202 z12.31 Performing Organization Address [facility]/Zipcode Phone Number SMS * OCCULT BLOOD ICT (01/19/2018 9:58 AM CDT) Occult Blood Negative [facility] ICT Specimen Stool Performing Organization Address [facility]/Zipcode Phone Number [facility] * HEMOGLOBIN A1C (01/11/2018 10:01 AM CDT) Hemoglobin A1c 6.3 (H) 4.3 - 6.1 % BT DIAGNOSTIC IMMUNOLOGY Est Average 134.1 mg/dL BT DIAGNOSTIC Gluc IMMUNOLOGY Specimen Blood Performing Organization Address [facility]/Zipcode Phone Number MISYS BT DIAGNOSTIC IMMUNOLOGY * [...] MAIN-STATION 1 Specimen Blood Performing Organization Address [facility] Phone Number MISYS MAIN-STATION 1 * LIPID PROFILE (01/11/2018 10:01 AM CDT) Cholesterol 223 mg/dL BT MAIN-STATION Comment: 1 REFERENCE RANGE: Desirable: <200 mg/dL Borderline: 200-240 mg/dL High Risk: >240 mg/dL Triglyceride 82 <150 mg/dL BT MAIN-STATION Comment: 1 REFERENCE RANGE: Normal: <150 mg/dL Borderline High: 150-199 mg/dL High: 200-499 mg/dL Very High: >ui=680 mg/dL HDL 73 mg/dL BT MAIN-STATION Comment: 1 Increased CHD risk: <40 mg/dL Decreased CHD risk: >60 mg/dL LDL 134 mg/dL BT MAIN-STATION Comment: 1 REFERENCE RANGE: Optimal: <100 mg/dL Near Optimal: 100-129 mg/dL Borderline High: 130-159 mg/dL High: 160-189 mg/dL Very High: >az=047 mg/dL Specimen Blood Performing Organization Address [facility] Phone Number MISYS MAIN-STATION 1 * CBC/DIFF (01/11/2018 10:01 AM [...] Hologic Discovery SL dual energy x-ray absorptiometry (DEXA).T-score [...] Organization Address City/State/Zipcode Phone Number SMS after 07/26/2017 Insurance Type Payer Benefit Subscriber ID Effective Phone Address Plan / Dates Group [place] [employer] [place] x[place] 2017-6 [address] [employer] FAMILY /09/2018 [id number] PLANNING [place], [place] IN[place] [address] [employer] PLAN [employer] PLAN xxxxxxx 2017-5 [phone] [place] [address]
--- OUTSIDE RECORDS SUMMARY | 2018-11-07 22:08 | XMS REPORT | Clinical Summary ---
Author Author [facility] Organization [facility] Address Unknown Phone Unavailable Care Team Providers Care Quality Control Head Name Role Phone Raman Melissa MD PCP Allergies No Known Allergies [...] raNITIdine HCl (ACID Take 150 mg 0 USER EXPERIENCE TEAM LEAD) 150 mg tablet by mouth 2 times daily. Active nitrofurantoin TOME MIRIAM (1) 0 (MACRODANTIN) 100 mg CAPSULA(S) 8 capsule POR LA BOCA CADA SEIS HORAS. Active alendronate (FOSAMAX) 35 Take 1 tablet 12 tablet 3 mg tabletIndications: once a week 8 Osteopenia, unspecified on empty location stomach with 8 oz of water and remain upright for 30 minutes. Active lisinopril (PRINIVIL, Take 1 tablet 90 tablet 1 ZESTRIL) 20 mg by mouth 9 tabletIndications: daily. Essential hypertension, benign Active amLODIPine (NORVASC) 10 Take 1 tablet 90 tablet 1 mg tabletIndications: by mouth 9 Essential hypertension, daily. benign Active traZODone (DESYREL) 50 mg TOME MIRIAM (1) 2 tablet TABLETA(S) 9 POR LA BOCA MIRIAM VEZ AL SARA AL ACOSTARSE. Active cetirizine (ZYRTEC) 10 mg Take 1 tablet 90 tablet 0 tabletIndications: by mouth 9 Seasonal allergic daily. rhinitis due to other allergic trigger 11/15/2017 Discontinued amLODIPine (NORVASC) 10 Take 1 [...] daily. rhinitis due to other allergic trigger 08/03/2018 Discontinued amLODIPine (NORVASC) 10 Take 1 tablet 90 tablet 0 mg tabletIndications: by mouth 8 Essential hypertension, daily. benign 08/03/2018 Discontinued lisinopril (PRINIVIL, Take 1 tablet 90 tablet 0 ZESTRIL) 20 mg by mouth 8 tabletIndications: daily. Essential hypertension, benign 08/30/2018 Discontinued cetirizine (ZYRTEC) 10 mg Take 1 tablet 90 tablet 0 tabletIndications: by mouth 9 Seasonal allergic daily. rhinitis due to other allergic trigger 08/03/2018 Discontinued amLODIPine (NORVASC) 10 Take 1 tablet 90 tablet 1 04/17/201 mg tabletIndications: by mouth 9 Essential hypertension, daily. benign Active Problems Problem Noted Date Screening for osteoporosis- as per pt was told at [place] for her upper 09/03/2017 back pain Essential hypertension, benign 01/08/2016 Hx of uterine prolapse with cystocele and rectocele- s/p hysterectomy, 01/08/2016 cystocele and rectocele repair 2007 [place] Encounters Care Team Description Date Type Specialty 09/13/2018 Travel Raman Melissa MD Seasonal allergic rhinitis due to other allergic trigger 08/30/2018 Refill [facility] Raman Melissa MD Supraclavicular fossa fullness 08/03/2018 Ancillary Radiology Procedure Raman Melissa MD Pacemaker (Primary Dx); Essential hypertension, benign; Chronic left shoulder pain; Supraclavicular fossa fullness 08/03/2018 Office Visit [facility] Paco Villavicencio Interpretation 08/03/2018 Telephone 08/03/2018 Travel Raman Melissa MD Seasonal allergic rhinitis due to other allergic trigger 05/06/2018 Refill [facility] Raman Melissa MD Preventative health care 03/08/2018 Ancillary Radiology Procedure Dahlia Argueta, GIOVANY Meibomian gland dysfunction (Primary Dx); Bilateral dry eyes 03/02/2018 Office Visit Ophthalmology Raman Melissa MD Essential hypertension, benign 02/15/2018 Refill [facility] Raman Melissa MD Preventative health care 01/19/2018 Orders Only [facility] Raman Melissa MD Preventative health care 01/11/2018 Lab Appointment Lab Raman Melissa MD Preventative health care (Primary Dx) 01/11/2018 Office Visit [facility] Raman Melissa MD Seasonal allergic rhinitis due to other allergic trigger 01/03/2018 Refill [facility] Dahlia Argueta OD Joad, Sabaa S, MD Age-related nuclear cataract, bilateral (Primary Dx); Meibomian gland dysfunction (MGD), bilateral, both upper and lower lids; Bilateral dry eyes; Refractive error 12/02/2017 Office Visit Ophthalmology Raman Melissa MD Essential hypertension, benign 11/17/2017 Refill [facility] Raman Melissa MD Essential hypertension, benign 11/15/2017 Refill [facility] Bryan Palmer MD Osteopenia, unspecified location (Primary Dx); Essential hypertension, benign 10/14/2017 Office Visit Family Practice after 09/12/2017 Immunizations Name Administration Dates Next Due Herpes Zoster Vaccine In 01/08/2016 (Deferred: Other - Patient requesting Clinic to wait til next visit) Influenza Vaccine 04/17/2016 TD (7+yrs) TETANUS AND 06/17/2005 DIPHTHERIA TOXOIDS), PRESERVATIVE FREE Tdap (Tetanus Toxoid, 09/03/2017, 07/19/2007 Reduced Diphtheria Toxoid And Acellular Pertussis, [...] Never Used Tobacco Cessation: Counseling Given: No Drinks/Week oz/Week Comments Alcohol Use No Sex Assigned at Date Recorded Not on file Industry Job Start Date Occupation Not on file Not on file Not on file Travel End Travel History Travel Start No recent travel history available. Last Filed Vital Signs Reading Time Taken Comments Vital Sign 150/74 08/03/2018 10:54 AM CDT Blood Pressure 92 08/03/2018 10:54 AM CDT Pulse 36.7 C (98.1 F) 08/03/2018 10:54 AM CDT Temperature 18 08/03/2018 10:54 AM CDT Respiratory Rate - - Oxygen Saturation - - Inhaled Oxygen Concentration 67.1 kg (148 lb) 08/03/2018 10:54 AM CDT Weight 160 cm (5' 3") 08/03/2018 10:54 AM CDT Height 26.22 08/03/2018 10:54 AM CDT Body Mass Index Plan of Treatment Care Team Description Date Type Specialty Amilcar Juan III, MD [address] [place] [address] [id number] [place] [address] [phone] results 09/20/2018 Office Visit Family Practice Health Maintenance Due Date Last Done Comments Colorectal Cancer Scrn 01/19/2019 01/19/2018, 01/13/2017, 01/10/2016 Annual (FIT/FOBT) Age 50 to 75 Cervical Cancer Scrn (3 02/06/2019 02/07/2016 Yrs) Breast Cancer Scrn 03/08/2019 03/08/2018, 03/25/2017, 02/07/2016, (Yearly) Additional history exists Procedures Comments Procedure Name Priority Date/Time Associated Diagnosis XRAY SHOULDER 2 VIEWS MIN Routine 08/03/2018 Supraclavicular fossa 11:56 AM CDT fullness 12 LEAD EKG Routine 08/03/2018 Pacemaker 11:44 AM CDT MAMMOGRAM BILAT SCREEN Routine 03/08/2018 [facility] care DIGITAL 8:12 AM COMPUTER METHODS ANALYST OCCULT BLOOD ICT Routine 01/19/2018 [facility] care 9:58 AM CDT COMPREHENSIVE METABOLIC Routine 01/11/2018 [facility] health care PANEL(DBIL NOT INCLUDED) 10:01 AM CDT CBC/DIFF Routine 01/11/2018 [facility] health care 10:01 AM CDT LIPID PROFILE Routine 01/11/2018 [facility] health care 10:01 AM CDT HEMOGLOBIN A1C Routine 01/11/2018 [facility] care 10:01 AM CDT after 09/12/2017 Results * XRAY SHOULDER 2 VIEWS MIN (08/03/2018 11:56 AM CDT) Specimen Impressions Performed At IMPRESSION: SMS No acute osseous lesion. Signed By: Albert Abdalla MD, 08/03/2018 12:28 PM Narrative Performed At Left shoulder 2 views SMS HISTORY:left shoulder pain COMPARISON: None DISCUSSION: No displaced fracture or malalignment. Acromioclavicular arthrosis. Glenohumeral joint intact. The visualized soft tissues appear unremarkable. Procedure Note Interface, Rad/Mammog In - 08/03/2018 12:33 PM CDT Left shoulder 2 views HISTORY: left shoulder pain COMPARISON: None DISCUSSION: No displaced fracture or malalignment. Acromioclavicular arthrosis. Glenohumeral joint intact. The visualized soft tissues appear unremarkable. IMPRESSION IMPRESSION: No acute osseous lesion. Signed By: Albert Abdalla MD, 08/03/2018 12:28 PM Performing Organization Address City/[facility]/Zipcode Phone Number SMS * 12 LEAD EKG (08/03/2018 11:44 AM CDT) 12 LEAD EKG FOR SMS P [facility] Test Date:2018-08-03 Pat Name: BEN CHA Department: [id number] Room: Gender: F Guest Relations Coordinator: [id number] :[id number] 05-15 Requested By: RAMAN MELISSA Order Number: [id number] Reading MD: Monika Bolaños Measurements Intervals [place] Rate: 74 P:60 [place]: 136 QRS: 94 QRSD: 106 T: 82 QT: 369 QTc:411 Interpretive Statements SINUS RHYTHM BORDERLINE RIGHT AXIS DEVIATION Electronically Signed On 08-03-2018 11:53:05 CDT by Monika Bolaños Specimen Performing Organization Address City/[facility]/[place]ust[place] Phone Number SMS * MAMMOGRAM BILAT SCREEN DIGITAL (03/08/2018 8:12 AM COMPUTER METHODS ANALYST) Specimen Impressions Performed At IMPRESSION: BENIGN [facility] There is no mammographic evidence of malignancy. A 1 year screening mammogram is recommended. I have reviewed the study and agree with the findings in the report. This document has been electronically signed. Carolyn Fitzgerald M.D. nm,ct/:03/08/2018 08:20:45 Process Tank Tender: Adry Little, [facility] letter sent: Benign Exam Mammogram BI-RADS: 2 Benign G0202 z12.31 Narrative Performed At #[id number] - MAMMOGRAM BILAT SCREEN DIGITAL SMS BILATERAL DIGITAL SCREENING MAMMOGRAM WITH CAD: 03/08/2018 CLINICAL: Annual. Comparison is made to exams dated:03/25/2017, 02/07/2016 [facility] and 08/25/2012 [facility]. There are scattered fibroglandular elements [...] Interface, Rad/Mammog In - 03/08/2018 9:36 AM COMPUTER METHODS ANALYST #[id number] - MAMMOGRAM BILAT SCREEN DIGITAL BILATERAL DIGITAL SCREENING MAMMOGRAM WITH CAD: 03/08/2018 CLINICAL: Annual. Comparison is made to exams dated: 03/25/2017, 02/07/2016 [facility] and 08/25/2012 [facility]. There are scattered fibroglandular elements [...] electronically signed. Carolyn Fitzgerald M.D. ks,ct/:03/08/2018 08:20:45 Process Tank Tender: Adry Little, [facility] letter sent: Benign Exam Mammogram BI-RADS: 2 Benign G0202 z12.31 Performing Organization Address [facility]/Zipcode Phone Number SMS * OCCULT BLOOD ICT (01/19/2018 9:58 AM CDT) Occult Blood Negative [facility] ICT Specimen Stool Performing Organization Address [facility]/Zipcode Phone Number [facility] * HEMOGLOBIN A1C (01/11/2018 10:01 AM CDT) Hemoglobin A1c 6.3 (H) 4.3 - 6.1 % BT DIAGNOSTIC IMMUNOLOGY Est Average 134.1 mg/dL BT DIAGNOSTIC Gluc IMMUNOLOGY Specimen Blood Performing Organization Address [facility]/[place] Phone Number MISYS BT DIAGNOSTIC IMMUNOLOGY * [...] MAIN-STATION 1 Specimen Blood Performing Organization Address [facility] Phone Number MISYS MAIN-STATION 1 * LIPID PROFILE (01/11/2018 10:01 AM CDT) Cholesterol 223 mg/dL BT MAIN-STATION Comment: 1 REFERENCE RANGE: Desirable: <200 mg/dL Borderline: 200-240 mg/dL High Risk: >240 mg/dL Triglyceride 82 <150 mg/dL BT MAIN-STATION Comment: 1 REFERENCE RANGE: Normal: <150 mg/dL Borderline High: 150-199 mg/dL High: 200-499 mg/dL Very High: >bw=514 mg/dL HDL 73 mg/dL BT MAIN-STATION Comment: 1 Increased CHD risk: <40 mg/dL Decreased CHD risk: >60 mg/dL LDL 134 mg/dL BT MAIN-STATION Comment: 1 REFERENCE RANGE: Optimal: <100 mg/dL Near Optimal: 100-129 mg/dL Borderline High: 130-159 mg/dL High: 160-189 mg/dL Very High: >ds=067 mg/dL Specimen Blood Performing Organization Address [facility] Phone Number MISYS BT MAIN-STATION 1 * [...] City/State/Zipcode Phone Number MISYS BT MAIN-STATION 2 after 09/12/2017 Insurance Type Payer Benefit Subscriber ID Effective Phone Address Plan / Dates Group [place] [employer] [place] xxxxxxx 2017-5 [address] INDIG[employer] FAMILY / [id number] PLANNING [place], [place] [address] [employer] PLAN [employer] PLAN xxxxxxx 2018- [phone] [id number] [place] [address]
--- OUTSIDE RECORDS SUMMARY | 2018-11-07 22:08 | XMS REPORT | Clinical Summary ---
Author Author [facility] Organization [facility] Address Unknown Phone Unavailable Care Team Providers Care Tanning Consultant Name Role Phone Jeronimo Melissa MD PCP [...] raNITIdine HCl (ACID Take 150 mg 0 CIGAR PACKER [employer] PICKER) 150 mg tablet by mouth 2 times [...] osteoporosis- as per pt was told at [place] for her upper 09/03/2017 back pain Essential hypertension, benign 01/08/2016 Hx of uterine prolapse with cystocele and rectocele- s/p hysterectomy, 01/08/2016 cystocele and rectocele repair 2007 [place] Encounters Care Team Description Date Type Specialty Jeronimo Melissa MD Preventative health care 03/08/2018 Ancillary Radiology Procedure Dahlia Argueta, OD Meibomian gland dysfunction (Primary Dx); Bilateral dry eyes 03/02/2018 Office Visit Ophthalmology Jeronimo Melissa MD Essential hypertension, benign 02/15/2018 Refill Family Practice Jeronimo Melissa MD Preventative health care 01/19/2018 Orders Only [facility] Practice Jeronimo Melissa MD Preventative health care 01/11/2018 Lab Appointment Lab Jeronimo Melissa MD Preventative health care (Primary Dx) 01/11/2018 Office Visit [facility] Jeronimo Melissa MD Seasonal allergic rhinitis due to other allergic trigger 01/03/2018 Refill [facility] Dahlia Argueta, OD Jeronimo Melissa MD Age-related nuclear cataract, bilateral (Primary Dx); Meibomian gland dysfunction (MGD), bilateral, both upper and lower lids; Bilateral dry eyes; Refractive error 12/02/2017 Office Visit Ophthalmology Jeronimo Melissa MD Essential hypertension, benign 11/17/2017 Refill [facility] Jeronimo Melissa MD Essential hypertension, benign 11/15/2017 Refill [facility] Bryan Palmer MD Osteopenia, unspecified location (Primary Dx); Essential hypertension, benign 10/14/2017 Office Visit [facility] Jeronimo Melissa MD Screening for osteoporosis- as per pt was told at [place] for her upper back pain 09/06/2017 Hospital Radiology Encounter Jeronimo Melissa MD Screening for osteoporosis- as per pt was told at [place] for her upper back pain (Primary Dx); Chest pain, unspecified type- went to [facility] all work up wnl (EKG, PE); Essential hypertension, benign; Preventative health care; Seasonal allergic rhinitis due to other allergic trigger 09/03/2017 Office Visit [facility] Jeronimo Melissa MD Preventative health care 09/03/2017 Orders Only [facility] Jeronimo Melissa MD Essential hypertension, benign 08/04/2017 Refill [facility] Practice after 05/03/2017 Immunizations Name Dates Previously Given Next Due [...] 03/08/2018 Preventative health care DIGITAL 8:12 AM TREAD CUTTER OCCULT BLOOD ICT Routine 01/19/2018 Preventative health care 9:58 AM CDT COMPREHENSIVE METABOLIC Routine 01/11/2018 Preventative health care PANEL(DBIL NOT INCLUDED) 10:01 AM CDT CBC/DIFF Routine 01/11/2018 Preventative health care 10:01 AM CDT LIPID PROFILE Routine 01/11/2018 Preventative health care 10:01 AM CDT HEMOGLOBIN A1C Routine 01/11/2018 [facility] health care 10:01 AM CDT BONE DENSITY (DUAL Routine 09/06/2017 Screening for PHOTON) 11:09 AM CDT osteoporosis- as per pt was told at [place] for her upper back pain after 05/03/2017 Results * MAMMOGRAM BILAT SCREEN DIGITAL (03/08/2018 8:12 AM TREAD CUTTER) Impressions Performed At IMPRESSION: BENIGN SMS There is no mammographic evidence of malignancy. A 1 year screening mammogram is recommended. I have reviewed the study and agree with the findings in the report. This document has been electronically signed. Carolyn Fitzgerald M.D. ks,ct/:03/08/2018 08:20:45 Prior Authorization Technician: Adry Little, [facility] letter sent: Benign Exam Mammogram BI-RADS: 2 Benign G0202 z12.31 Narrative Performed At #[id number] - MAMMOGRAM BILAT SCREEN DIGITAL SMS BILATERAL DIGITAL SCREENING MAMMOGRAM WITH CAD: 03/08/2018 CLINICAL: Annual. Comparison is made to exams dated:03/25/2017, 02/07/2016 [facility], and 08/25/2012 [facility]. There are scattered fibroglandular elements in [...] Interface, Rad/Mammog In - 03/08/2018 9:36 AM TREAD CUTTER #[id number] - MAMMOGRAM BILAT SCREEN DIGITAL BILATERAL DIGITAL SCREENING MAMMOGRAM WITH CAD: 03/08/2018 CLINICAL: Annual. Comparison is made to exams dated: 03/25/2017, 02/07/2016 [facility], and 08/25/2012 [facility]. There are scattered fibroglandular elements in [...] electronically signed. Carolyn Fitzgerald M.D. ks,ct/:03/08/2018 08:20:45 Prior Authorization Technician: Adry Little [facility] letter sent: Benign Exam Mammogram BI-RADS: 2 Benign G0202 z12.31 Performing Organization Address City/[facility]/Zipcode Phone Number SMS * OCCULT BLOOD ICT (01/19/2018 9:58 AM CDT) Occult Blood Negative [facility] ICT Specimen Stool Performing Organization Address [facility] Phone Number [facility] * HEMOGLOBIN A1C (01/11/2018 10:01 AM CDT) Hemoglobin A1c 6.3 (H) 4.3 - 6.1 % BT DIAGNOSTIC IMMUNOLOGY Est Average 134.1 mg/dL BT DIAGNOSTIC Gluc IMMUNOLOGY Specimen Blood Performing Organization Address [facility] Phone Number MISYS [...] MAIN-STATION 1 Specimen Blood Performing Organization Address [facility] Phone Number MISYS MAIN-STATION 1 * LIPID PROFILE (01/11/2018 10:01 AM CDT) Cholesterol 223 mg/dL BT MAIN-STATION Comment: 1 REFERENCE RANGE: Desirable: <200 mg/dL Borderline: 200-240 mg/dL High Risk: >240 mg/dL Triglyceride 82 <150 mg/dL BT MAIN-STATION Comment: 1 REFERENCE RANGE: Normal: <150 mg/dL Borderline High: 150-199 mg/dL High: 200-499 mg/dL Very High: >cz=674 mg/dL HDL 73 mg/dL BT MAIN-STATION Comment: 1 Increased CHD risk: <40 mg/dL Decreased CHD risk: >60 mg/dL LDL 134 mg/dL BT MAIN-STATION Comment: 1 REFERENCE RANGE: Optimal: <100 mg/dL Near Optimal: 100-129 mg/dL Borderline High: 130-159 mg/dL High: 160-189 mg/dL Very High: >kj=570 mg/dL Specimen Blood Performing Organization Address [facility] Phone Number MISYS BT MAIN-STATION 1 * [...] The patient underwent bone mineral densitometry using [employer] Discovery SL dual energy x-ray absorptiometry (DEXA).T-score [...] AM Performing Organization Address City/State/Zipcode Phone Number [facility] after 05/03/2017 Insurance Type Payer Benefit Subscriber ID Effective Phone Address Plan / Dates Group [facility] xxxxxxx 2017-[address] [place]ILY /09/2018 [id number] [place], [place] [address] [employer] PLAN [employer] PLAN xxxxxxx 2017-5 [phone] [place] [address]
--- OUTSIDE RECORDS SUMMARY | 2018-11-07 22:08 | XMS REPORT | Clinical Summary ---
Author Author [facility] Organization [facility] Address Unknown Phone Unavailable Care Team Providers Care Feed Mill Manager Name Role Phone Raman Melissa MD PCP [...] raNITIdine HCl (ACID Take 150 mg 0 LOGISTICS ASSISTANT) 150 mg tablet by mouth 2 times [...] rhinitis due to other allergic trigger Active lisinopril (PRINIVIL, Take 1 tablet 90 tablet 1 ZESTRIL) 20 mg by mouth 9 tabletIndications: daily. Essential hypertension, benign Active amLODIPine (NORVASC) 10 Take 1 tablet 90 tablet 1 mg tabletIndications: by mouth 9 Essential hypertension, daily. benign Active traZODone (DESYREL) 50 mg TOME MIRIAM (1) 2 tablet TABLETA(S) 9 POR LA BOCA MIRIAM VEZ AL SARA AL ACOSTARSE. 09/03/2017 Discontinued cetirizine (ZYRTEC) 10 mg Take 10 mg by 0 tablet mouth daily. 11/15/2017 Discontinued amLODIPine (NORVASC) 10 Take 1 [...] mouth 8 tabletIndications: daily. Essential hypertension, benign 08/03/2018 Discontinued amLODIPine (NORVASC) 10 Take 1 tablet 90 tablet 1 mg tabletIndications: by mouth 9 Essential hypertension, daily. benign Active Problems Problem Noted Date Screening for osteoporosis- as per pt was told at [place] for her upper 09/03/2017 back pain Essential hypertension, benign 01/08/2016 Hx of uterine prolapse with cystocele and rectocele- s/p hysterectomy, 01/08/2016 cystocele and rectocele repair 2007 [place] Encounters Care Team Description Date Type Specialty Raman Melissa MD Supraclavicular fossa fullness 08/03/2018 Ancillary Radiology Procedure Raman Melissa MD Pacemaker (Primary Dx); Essential hypertension, benign; Chronic left shoulder pain; Supraclavicular fossa fullness 08/03/[address] [facility] Ac Villavicencioonskarrie Aguila Interpretation 08/03/2018 Telephone 08/03/2018 Travel Raman Melissa MD Seasonal allergic rhinitis due to other allergic trigger 05/06/[address] [facility] Raman Melissa MD Preventative health care 03/08/2018 Ancillary Radiology Procedure Dahlia Argueta, GIOVANY Meibomian gland dysfunction (Primary Dx); Bilateral dry eyes 03/02/2018 Office Visit Ophthalmology Raman Melissa MD Essential hypertension, benign 02/15/[address] [facility] Raman Melissa MD Preventative health care 01/19/[address] [facility] Raman Melissa MD Preventative health care 01/11/2018 Lab Appointment Lab Raman Melissa MD Preventative health care (Primary Dx) 01/11/[address] [facility] Raman Melissa MD Seasonal allergic rhinitis due to other allergic trigger 01/03/[address] [facility] Dahlia Argueta, OD Raman Melissa MD Age-related nuclear cataract, bilateral (Primary Dx); Meibomian gland dysfunction (MGD), bilateral, both upper and lower lids; Bilateral dry eyes; Refractive error 12/02/2017 Office Visit Ophthalmology Raman Melissa MD Essential hypertension, benign 11/17/2017 Refill [facility] Raman Melissa MD Essential hypertension, benign 11/15/[address] [facility] Bryan Palmer MD Osteopenia, unspecified location (Primary Dx); Essential hypertension, benign 10/14/[address] [facility] Raman Melissa MD Screening for osteoporosis- as per pt was told at [place] for her upper back pain 09/06/2017 Hospital Radiology Encounter Raman Melissa MD Screening for osteoporosis- as per pt was told at [place] for her upper back pain (Primary Dx); Chest pain, unspecified type- went to [facility] all work up wnl (EKG, PE); Essential hypertension, benign; Preventative health care; Seasonal allergic rhinitis due to other allergic trigger 09/03/2017 Office Visit Family Practice Raman Melissa MD Preventative health care 09/03/2017 Orders Only Family Practice after 08/21/2017 Immunizations Name Dates Previously Given Next Due [...] Vital Signs Time Taken Vital Sign Reading 08/03/2018 10:54 AM CDT Blood Pressure 150/74 08/03/2018 10:54 AM CDT Pulse 92 08/03/2018 10:54 AM CDT Temperature 36.7 C (98.1 F) 08/03/2018 10:54 AM CDT Respiratory Rate 18 - Oxygen Saturation - - Inhaled Oxygen - Concentration 08/03/2018 10:54 AM CDT Weight 67.1 kg (148 lb) 08/03/2018 10:54 AM CDT Height 160 cm (5' 3") 08/03/2018 10:54 AM CDT Body Mass Index 26.22 Plan of Treatment Care Team Description Date Type Specialty 09/13/2018 Ancillary Radiology Procedure Raman Melissa MD [id number] [place] [address] [phone] results 09/20/[address] [facility] Health Maintenance Due Date Last Done Comments [...] AM CDT MAMMOGRAM BILAT SCREEN Routine 03/08/2018 [facility] health care DIGITAL 8:12 AM RESUME SPECIALIST OCCULT BLOOD ICT Routine 01/19/2018 [facility] health care 9:58 AM CDT COMPREHENSIVE METABOLIC Routine 01/11/2018 [facility] care PANEL(DBIL NOT INCLUDED) 10:01 AM CDT CBC/DIFF Routine 01/11/2018 [facility] 10:01 AM CDT LIPID PROFILE Routine 01/11/2018 [facility] health care 10:01 AM CDT HEMOGLOBIN A1C Routine 01/11/2018 Preventative health care 10:01 AM CDT BONE DENSITY (DUAL Routine 09/06/2017 Screening for PHOTON) 11:09 AM CDT osteoporosis- as per pt was told at [place] for her upper back pain after 08/21/2017 Results * XRAY SHOULDER 2 VIEWS MIN (08/03/2018 11:56 AM CDT) Impressions Performed At IMPRESSION: [facility] No acute osseous lesion. Signed By: Albert [...] MD, 08/03/2018 12:28 PM Performing Organization Address City/[facility] Phone Number SMS * 12 LEAD EKG (08/03/2018 11:44 AM CDT) 12 LEAD EKG FOR [facility] Test Date:2018-08-03 Pat Name: BEN CHA Department: [id number] Room: Gender: F Room Service Waiter: [id number] :[id number] [phone] Requested By: RAMAN MELISSA Order Number: [id number] Reading MD: Monika Bolaños Measurements Intervals [place] Rate: 74 P:60 NH: 136 QRS: 94 QRSD: 106 T: 82 QT: 369 QTc:411 Interpretive Statements SINUS RHYTHM BORDERLINE RIGHT AXIS DEVIATION Electronically Signed On 08-03-2018 11:53:05 CDT by Monika Bolaños Performing Organization Address [facility] Phone Number SMS * MAMMOGRAM BILAT SCREEN DIGITAL (03/08/2018 8:12 AM RESUME SPECIALIST) Impressions Performed At IMPRESSION: BENIGN SMS There is no mammographic evidence of malignancy. A 1 year screening mammogram is recommended. I have reviewed the study and agree with the findings in the report. This document has been electronically signed. Carolyn Fitzgerald M.D. wy,ct/:03/08/2018 08:20:45 Baggage Checker: Adry Little [facility] letter sent: Benign Exam Mammogram BI-RADS: 2 Benign G0202 z12.31 Narrative Performed At #[id number] - MAMMOGRAM BILAT SCREEN DIGITAL SMS BILATERAL DIGITAL SCREENING MAMMOGRAM WITH CAD: 03/08/2018 CLINICAL: Annual. Comparison is made to exams dated:03/25/2017, 02/07/2016 [facility], and 08/25/2012 [facility]. There are scattered fibroglandular elements [...] Interface, Rad/Mammog In - 03/08/2018 9:36 AM RESUME SPECIALIST #[id number] - MAMMOGRAM BILAT SCREEN DIGITAL BILATERAL DIGITAL SCREENING MAMMOGRAM WITH CAD: 03/08/2018 CLINICAL: Annual. Comparison is made to exams dated: 03/25/2017, 02/07/2016 [facility], and 08/25/2012 [facility]. There are scattered fibroglandular elements [...] has been electronically signed. Carolyn Fitzgerald M.D. wy,ct/:03/08/2018 08:20:45 Baggage Checker: Adry Little [facility] letter sent: Benign Exam Mammogram BI-RADS: 2 Benign G0202 z12.31 Performing Organization Address City/State/Zipcode Phone Number SMS * OCCULT BLOOD ICT (01/19/2018 9:58 AM CDT) Occult Blood Negative [facility] ICT Specimen Stool Performing Organization Address City/State/Zipcode Phone Number [facility] * HEMOGLOBIN A1C (01/11/2018 10:01 AM CDT) Hemoglobin A1c 6.3 (H) 4.3 - 6.1 % BT DIAGNOSTIC IMMUNOLOGY Est Average 134.1 mg/dL BT DIAGNOSTIC Gluc IMMUNOLOGY Specimen Blood Performing Organization Address [facility] Phone Number [facility] DI[facility]NOST[facility]MMUNOLOGY * COMPREHENSIVE METABOLIC PANEL(DBIL NOT [...] MAIN-STATION 1 Specimen Blood Performing Organization Address [facility] Phone Number MISYS BT MAIN-STATION 1 * LIPID PROFILE (01/11/2018 10:01 AM CDT) Cholesterol 223 mg/dL BT MAIN-STATION Comment: 1 REFERENCE RANGE: Desirable: <200 mg/dL Borderline: 200-240 mg/dL High Risk: >240 mg/dL Triglyceride 82 <150 mg/dL BT MAIN-STATION Comment: 1 REFERENCE RANGE: Normal: <150 mg/dL Borderline High: 150-199 mg/dL High: 200-499 mg/dL Very High: >sz=141 mg/dL HDL 73 mg/dL BT MAIN-STATION Comment: 1 Increased CHD risk: <40 mg/dL Decreased CHD risk: >60 mg/dL LDL 134 mg/dL BT MAIN-STATION Comment: 1 REFERENCE RANGE: Optimal: <100 mg/dL Near Optimal: 100-129 mg/dL Borderline High: 130-159 mg/dL High: 160-189 mg/dL Very High: >vg=830 mg/dL Specimen Blood Performing Organization Address City/State/Zipcode Phone Number MISYS BT MAIN-STATION 1 * [...] Blood Performing Organization Address City/State/Zipcode Phone Number MCKAYLA BT MAIN-STATION 2 * BONE DENSITY (DUAL PHOTON) (09/06/2017 11:09 AM CDT) Impressions Performed At IMPRESSION: SMS Finding is suggesting Osteopenia. There is focal osteoporosis in L4 with T score of -2.7. Signed By: Gorge Canada MD, 09/06/2017 11:55 AM Narrative Performed At EXAM: DEXA SMS INDICATION: Bone mineral density screening TECHNIQUE: The patient underwent bone mineral densitometry using [employer] Discovery SL dual energy x-ray absorptiometry (DEXA).T-score [...] Organization Address City/State/Zipcode Phone Number SMS after 08/21/2017 Insurance Type Payer Benefit Subscriber ID Effective Phone Address Plan / Dates Group [employer] [place] xxxxxxx 2017- [phone] [place] [address] [id number] [place], [place] [address] [employer] PLAN H[employer] PLAN xxxxxxx 2017- [phone] [place] [address]
--- OUTSIDE RECORDS SUMMARY | 2018-11-07 22:09 | XMS REPORT | Clinical Summary ---
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) 150 mg tablet by mouth 2 times [...] osteoporosis- as per pt was told at [place] for her upper 09/03/2017 back pain Essential hypertension, benign 01/08/2016 Hx of uterine prolapse with cystocele and rectocele- s/p hysterectomy, 01/08/2016 cystocele and rectocele repair 2007 [place] Encounters Care Team Description Date Type Specialty 08/03/2018 Travel Jeronimo Melissa MD Seasonal allergic rhinitis due to other allergic trigger 05/06/2018 Refill [facility] Jeronimo Melissa MD Preventative health care 03/08/2018 Ancillary Radiology Procedure Dahlia Argueta OD Meibomian gland dysfunction (Primary Dx); Bilateral dry eyes 03/02/2018 Office Visit Ophthalmology Jeronimo Melissa MD Essential hypertension, benign 02/15/2018 Refill [facility] Jeronimo Melissa MD Preventative health care 01/19/2018 Orders Only [facility] Jeronimo Melissa MD Preventative health care 01/11/2018 Lab Appointment Lab Jeronimo Melissa MD Preventative health care (Primary Dx) 01/11/2018 Office Visit [facility] Jeronimo Melissa MD Seasonal allergic rhinitis due to other allergic trigger 01/03/2018 Refill [facility] Dahlia Argueta OD Joad, Sabaa, MD Age-related nuclear cataract, bilateral (Primary Dx); Meibomian gland dysfunction (MGD), bilateral, both upper and lower lids; Bilateral dry eyes; Refractive error 12/02/2017 Office Visit Ophthalmology Jeronimo Melissa MD Essential hypertension, benign 11/17/2017 Refill [facility] Jeronimo Melissa MD Essential hypertension, benign 11/15/2017 Refill [facility] Bryan Palmer MD Osteopenia, unspecified location (Primary Dx); Essential hypertension, benign 10/14/2017 Office Visit [facility] Jeronimo Melissa MD Screening for osteoporosis- as per pt was told at [place] for her upper back pain 09/06/2017 Hospital Radiology Encounter Jeronimo Melissa MD Screening for osteoporosis- as per pt was told at [place] for her upper back pain (Primary Dx); Chest pain, unspecified type- went to [facility] all work up wnl (EKG, PE); Essential hypertension, benign; Preventative health care; Seasonal allergic rhinitis due to other allergic trigger 09/03/2017 Office Visit [facility] Jeronimo Kan MD Preventative health care 09/03/2017 Orders Only [facility] Jeronimo Melissa MD Essential hypertension, benign 08/04/2017 Refill [facility] after 08/02/2017 Immunizations Name Dates Previously Given Next Due [...] Description Date Type Specialty Jeronimo Melissa MD [address] [place] [address] [address] [place] [address] [id number] Arrived 08/03/2018 Office Visit Family Practice Health Maintenance Due Date Last Done Comments Colorectal Cancer Scrn 01/19/2019 01/19/2018, 01/13/2017, 01/10/2016 Annual (FIT/FOBT) Age 50 to 75 Cervical Cancer Scrn (3 02/06/2019 02/07/2016 Yrs) Breast Cancer Scrn 03/08/2019 03/08/2018, 03/25/2017, 02/07/2016, (Yearly) Additional history exists Procedures Comments Procedure Name Priority Date/Time Associated Diagnosis MAMMOGRAM BILAT SCREEN Routine 03/08/2018 [facility] DIGITAL 8:12 AM PAPER HANDLER OCCULT BLOOD ICT Routine 01/19/2018 [facility] health care 9:58 AM CDT COMPREHENSIVE METABOLIC Routine 01/11/2018 [facility] care PANEL(DBIL NOT INCLUDED) 10:01 AM CDT CBC/DIFF Routine 01/11/2018 [facility] 10:01 AM CDT LIPID PROFILE Routine 01/11/2018 [facility] health care 10:01 AM CDT HEMOGLOBIN A1C Routine 01/11/2018 [facility] health care 10:01 AM CDT BONE DENSITY (DUAL Routine 09/06/2017 Screening for PHOTON) 11:09 AM CDT osteoporosis- as per pt was told at [place] for her upper back pain after 08/02/2017 Results * MAMMOGRAM BILAT SCREEN DIGITAL (03/08/2018 8:12 AM PAPER HANDLER) Impressions Performed At IMPRESSION: BENIGN SMS There is no mammographic evidence of malignancy. A 1 year screening mammogram is recommended. I have reviewed the study and agree with the findings in the report. This document has been electronically signed. Carolyn Fitzgerald M.D. va,ct/:03/08/2018 08:20:45 Metal Roofer: Adry Little, [facility] letter sent: Benign Exam Mammogram BI-RADS: 2 Benign G0202 z12.31 Narrative Performed At #[id number] - MAMMOGRAM BILAT SCREEN DIGITAL SMS BILATERAL DIGITAL SCREENING MAMMOGRAM WITH CAD: 03/08/2018 CLINICAL: Annual. Comparison is made to exams dated:03/25/2017, 02/07/2016 [facility], and 08/25/2012 [facility]. There are scattered fibroglandular elements [...] Interface, Rad/Mammog In - 03/08/2018 9:36 AM [facility] #[id number] - MAMMOGRAM BILAT SCREEN DIGITAL BILATERAL DIGITAL SCREENING MAMMOGRAM WITH CAD: 03/08/2018 CLINICAL: Annual. Comparison is made to exams dated: 03/25/2017, 02/07/2016 [facility], and 08/25/2012 [facility]. There are scattered fibroglandular elements [...] electronically signed. Carolyn Fitzgerald M.D. ks,ct/:03/08/2018 08:20:45 Metal Roofer: Adry Little, [facility] letter sent: Benign Exam Mammogram BI-RADS: 2 Benign G0202 z12.31 Performing Organization Address [facility]/Zipcode Phone Number SMS * OCCULT BLOOD ICT (01/19/2018 9:58 AM CDT) Occult Blood Negative [facility] ICT Specimen Stool Performing Organization Address [facility]/Zipcode Phone Number M[facility]YS [facility] * HEMOGLOBIN A1C (01/11/2018 10:01 AM CDT) Hemoglobin A1c 6.3 (H) 4.3 - 6.1 % BT DIAGNOSTIC IMMUNOLOGY Est Average 134.1 mg/dL BT DIAGNOSTIC Gluc IMMUNOLOGY Specimen Blood Performing Organization Address [facility]/Zipcode Phone Number MISYS BT DIAGNOSTIC IMMUNOLOGY [...] MAIN-STATION 1 Specimen Blood Performing Organization Address [facility] [place] [facility] MAIN-STATION 1 * LIPID PROFILE (01/11/2018 10:01 AM CDT) Cholesterol 223 mg/dL BT MAIN-STATION Comment: 1 REFERENCE RANGE: Desirable: <200 mg/dL Borderline: 200-240 mg/dL High Risk: >240 mg/dL Triglyceride 82 <150 mg/dL BT MAIN-STATION Comment: 1 REFERENCE RANGE: Normal: <150 mg/dL Borderline High: 150-199 mg/dL High: 200-499 mg/dL Very High: >mo=964 mg/dL HDL 73 mg/dL BT MAIN-STATION Comment: 1 Increased CHD risk: <40 mg/dL Decreased CHD risk: >60 mg/dL LDL 134 mg/dL BT MAIN-STATION Comment: 1 REFERENCE RANGE: Optimal: <100 mg/dL Near Optimal: 100-129 mg/dL Borderline High: 130-159 mg/dL High: 160-189 mg/dL Very High: >fh=549 mg/dL Specimen Blood Performing Organization Address [facility] [place] Number MISYS BT MAIN-STATION 1 * [...] Organization Address City/State/Zipcode Phone Number SMS after 08/02/2017 Insurance Type Payer Benefit Subscriber ID Effective Phone Address Plan / Dates Group [employer] [place] 2017- [phone] [employer] / [id number] [place], [place] [id number] [employer] PLAN [employer] xxxxxxx 2017- [phone] [id number] [place] [address]
[2018-11-07 22:53] LABS: BASOPHILS % 0.2 % (0.0-1.0); EOSINOPHILS # (AUTO) 0.1 (0.0-0.4); EOSINOPHILS % 0.4 % (0.0-6.0); HEMATOCRIT 36.9 % (34.2-44.1); HEMOGLOBIN 12.1 g/dL (12.0-16.0); LYMPHOCYTES # (AUTO) 1.1 (1.0-3.2); MEAN CORPUSCULAR HEMOGLOBIN 30.1 pg (28-32); MEAN CORPUSCULAR HGB CONC 32.8 g/dL (31-35); MEAN CORPUSCULAR VOLUME 91.8 fL (81-99); MONOCYTES % 5.9 % (4.4-11.3); NEUTROPHILS # (AUTO) 13.9 (2.1-6.9); NEUTROPHILS % 86.1 % (38.7-80.0); PLATELET COUNT 258 x10e3/uL (140-360); RED BLOOD COUNT 4.02 x10e6/uL (3.6-5.1); RED CELL DISTRIBUTION WIDTH 12.4 % (11.7-14.4)
[2018-11-07 22:54] LABS: BILIRUBIN,URINE NEGATIVE (NEGATIVE); CLARITY,URINE SL CLOUDY (CLEAR); COLOR,URINE YELLOW (YELLOW); KETONES,URINE NEGATIVE (NEGATIVE); LEUKOCYTE ESTERASE ,URINE LARGE (NEGATIVE); NITRITE,URINE NEGATIVE (NEGATIVE); PROTEIN,URINE DIPSTICK NEGATIVE (NEGATIVE); URINE UROBILINOGEN 0.2 mg/dL (0.2 - 1)
[2018-11-07 23:16] LABS: ALANINE AMINOTRANSFERASE 286 IU/L (0-55); ALBUMIN 4.1 g/dL (3.5-5.0); ALBUMIN/GLOBULIN RATIO 1.1 (0.8-2.0); ALKALINE PHOSPHATASE 187 IU/L (40-150); AMYLASE 2173 U/L (25-125); ANION GAP 14.9 mmol/L (8-16); BLOOD UREA NITROGEN 10 mg/dL (7-26); BUN/CREATININE RATIO 13 (6-25); CALCIUM 10.1 mg/dL (8.4-10.2); CARBON DIOXIDE 29 mmol/L (22-29); CHLORIDE 99 mmol/L (98-107); CREATININE, SERUM 0.79 mg/dL (0.57-1.11); EST GLOMERULAR FILTRATION RATE > 60 ML/MIN (60-); GLUCOSE 135 mg/dL (74-118); POTASSIUM 3.9 mmol/L (3.5-5.1); SODIUM 139 mmol/L (136-145)
[2018-11-07] MEDS ORDERED: IOPAMIDOL 370 MG/ML 200 ML INFUS..BTL INJ ONE (23:43)
[2018-11-07] MEDS ORDERED: SODIUM CHLORIDE 0.9% 50ML 50 ML ONE (23:43)
[2018-11-07 23:53] LABS: BACTERIA,URINE MODERATE /HPF; EPITHELIAL CELLS,URINE FEW /LPF; RENAL EPITHELIAL CELLS,URINE FEW; TRANSITIONAL EPI CELLS,URINE FEW; WBC,URINE (MAN) >50 /HPF (0-5)
[2018-11-08] VITALS (9 sets, daily range): BP systolic 116–152; BP diastolic 61–77
[2018-11-08 00:22] LABS: LIPASE > 1200 U/L (8-78)
--- NOTE | 2018-11-08 01:12 | Diagnostic Imaging Report ---
EXAM: CT Abdomen and Pelvis WITH contrast INDICATION: ^ruq pain ^[id number] ^[id number] COMPARISON: None. TECHNIQUE: Abdomen and pelvis were scanned utilizing a multidetector helical scanner from the lung base to the pubic symphysis after administration of IV contrast. Coronal and sagittal reformations were obtained. Dose modulation, iterative reconstruction, and/or weight based adjustment of the mA/kV was utilized to reduce the radiation dose to as low as reasonably achievable. Routine protocol was performed. Scan was performed when during portal venous phase. IV CONTRAST: 100 mL of Isovue-370 ORAL CONTRAST: None COMPLICATIONS: None RADIATION DOSE: Total DLP: 318.59 mGy*cm Estimated effective dose: (DLP x 0.015 x size factor) mSv CTDIvol has been reviewed. It is below the limits set by the Radiation Protocol Committee (RPC). FINDINGS: LINES and TUBES: None. LOWER THORAX: 6 mm groundglass right lower lobe nodule. Left basilar and lingular linear atelectasis/scarring. Distal leads of cardiac device are visualized, terminating in right atrium and right ventricle. HEPATOBILIARY: No focal hepatic lesions. No intrahepatic biliary dilatation. The common bile left is distended up to 1 cm with enhancing garcia (series 301, image 43). The cystic duct is also prominent and irregular (series 301, image 45). GALLBLADDER: No radio-opaque stones or sludge. No wall thickening. SPLEEN: No splenomegaly. PANCREAS: No focal masses or ductal dilatation. ADRENALS: No adrenal nodules KIDNEYS/URETERS: Kidneys enhance symmetrically. No hydronephrosis. No cystic or solid mass lesions. No stones. GI TRACT: No abnormal distention, wall thickening, or evidence of bowel obstruction. Mild periduodenal fat stranding at the site of ampulla of vater. There are diverticula within the colon without evidence of diverticulitis. Appendix is not visualized. PELVIC ORGANS/BLADDER: Hysterectomy. Bladder is unremarkable. LYMPH NODES: No lymphadenopathy. VESSELS: Unremarkable. PERITONEUM / RETROPERITONEUM: No free air or fluid. BONES: Unremarkable. SOFT TISSUES: Unremarkable. IMPRESSION: 1. Distended common bile duct with enhancing wall and gradual distal tapering. There is also mild periduodenal fat stranding at the junction of the second and third portions. Infectious process such as cholangitis or mild focal duodenitis cannot be excluded. There is also possibility of choledocholithiasis. Recommend GI consult. 2. 6 mm groundglass right lower lobe nodule. Recommend follow-up chest CT in 6-12 months to ensure stability. Signed by: Dr. Rahat Charles MD on 11/08/2018 1:09 AM
[2018-11-08] MEDS ORDERED: CEFEPIME HCL 1 GM VIAL IV SCH (01:30)
--- OUTSIDE RECORDS SUMMARY | 2018-11-08 01:37 | XMS REPORT | Continuity of Care Document ---
Author Author Docin Address Unknown Phone Unavailable Care Team Providers Care Strategic Planning Consultant Name Role Phone All Copy Products Information [employer] Unavailable Unavailable Problems Problem Status Onset Date Classification Date Reported Comments Source Screening for osteoporosis- as per pt was told at [facility] for her upper back pain Active 09/03/2017 09/13/[address] [facility] Essential hypertension, benign Active 01/08/2016 09/13/[address] [facility] Hx of uterine prolapse with cystocele and rectocele- s/p hysterectomy, cystocele and rectocele repair 2007 [facility] Active 01/08/2016 09/13/[address] [facility] Chest pain Active Problem 04/23/2018 [facility] Heart block Active Problem 04/23/2018 [facility] Seasonal allergic rhinitis due to other allergic trigger Active 09/13/[address] [facility] Preventative health care Active 09/13/[address] [facility] Meibomian gland dysfunction Active 09/13/[address] [facility] Bilateral dry eyes Active 09/13/[address] [facility] Age-related nuclear cataract, bilateral Active 09/13/[address] [facility] Meibomian gland dysfunction , bilateral, both upper and lower lids Active 09/13/[address] [facility] Refractive error Active 09/13/[address] [facility] Osteopenia, unspecified location Active 09/13/[address] [facility] Screening for osteoporosis Active 08/22/[address] [facility] Chest pain, unspecified type Active 08/22/[address] [facility] Supraclavicular fossa fullness Active 09/13/[address] [facility] Pacemaker Active 09/13/[address] [facility] Chronic left shoulder pain Active 09/13/[address] [facility] Medications Medication Details Route Status Patient Instructions Ordering Provider Order Date Source cetirizine (ZYRTEC) 10 mg tablet Take 1 tablet by mouth daily. Oral Active 08/31/[address] [facility] amLODIPine (NORVASC) 10 mg tablet Take 1 tablet by mouth daily. Oral Inactive 08/03/[address] [facility] lisinopril (PRINIVIL, ZESTRIL) 20 mg tablet Take 1 tablet by mouth daily. Oral Active 08/03/[address] [facility] amLODIPine (NORVASC) 10 mg tablet Take 1 tablet by mouth daily. Oral Inactive 08/03/[address] [facility] traZODone (DESYREL) 50 mg tablet TOME MIRIAM (1) TABLETA(S) POR LA BOCA MIRIAM VEZ AL SARA AL ACOSTARSE. Active 08/01/[address] [facility] cetirizine (ZYRTEC) 10 mg tablet Take 1 tablet by mouth daily. Oral No Longer Active 05/10/[address] [facility] amLODIPine (NORVASC) 10 mg tablet Take 1 tablet by mouth daily. Oral No Longer Active 02/16/[address] [facility] lisinopril (PRINIVIL, ZESTRIL) 20 mg tablet Take 1 tablet by mouth daily. Oral No Longer Active 02/16/[address] [facility] amLODIPine (NORVASC) 10 mg tablet Take 1 tablet by mouth daily. Oral No Longer Active 02/16/[address] [facility] cetirizine (ZYRTEC) 10 mg tablet Take 1 tablet by mouth daily. Oral No Longer Active 01/04/[address] [facility] lisinopril (PRINIVIL, ZESTRIL) 20 mg tablet Take 1 tablet by mouth daily. Oral No Longer Active 11/18/[address] [facility] amLODIPine (NORVASC) 10 mg tablet Take 1 tablet by mouth daily. Oral No Longer Active 11/16/[address] [facility] amLODIPine (NORVASC) 10 mg tablet Take 1 tablet by mouth daily. Oral No Longer Active 11/16/[address] [facility] alendronate (FOSAMAX) 35 mg tablet Take 1 tablet once a week on empty stomach with 8 oz of water and remain upright for 30 minutes. Active 10/14/[address] [facility] cetirizine (ZYRTEC) 10 mg tablet Take 1 tablet by mouth daily. Oral No Longer Active 09/03/[address] [facility] nitrofurantoin (MACRODANTIN) 100 mg capsule TOME MIRIAM (1) CAPSULA(S) POR LA BOCA CADA SEIS HORAS. Active 08/15/[address] [facility] amLODIPine (NORVASC) 10 mg tablet Take 1 tablet by mouth daily. Oral No Longer Active 08/04/[address] [facility] lisinopril (PRINIVIL, ZESTRIL) 20 mg tablet Take 1 tablet by mouth daily. Oral No Longer Active 08/04/[address] [facility] amLODIPine (NORVASC) 10 mg tablet Take 1 tablet by mouth daily. Oral No Longer Active 08/04/[address] [facility] lisinopril (PRINIVIL, ZESTRIL) 20 mg tablet Take 1 tablet by mouth daily. Oral No Longer Active 01/01/[address] [facility] amLODIPine (NORVASC) 10 mg tablet Take 1 tablet by mouth daily. Oral No Longer Active 01/01/[address] [facility] codeine-guaiFENesin (CHERATUSSIN AC) 10-100 mg/5 mL syrup Take 10 mL by mouth 3 times daily as needed for Cough or Congestion. Oral Active 06/12/[address] [facility] codeine-guaiFENesin (CHERATUSSIN AC) 10-100 mg/5 mL syrup Take 10 mL by mouth 3 times daily as needed for Cough or Congestion. Oral Active 06/12/[address] [facility] cyanocobalamin, vitamin B-12, 1,000 mcg tablet Take 1 tablet by mouth daily. Oral Active 02/07/[address] [facility] Calcium-Cholecalciferol, D3, (CALCIUM 500 + D) 500 mg(1,250mg) -400 unit tablet Take 1 tablet by mouth daily. Oral Active 02/07/[address] [facility] Amlodipine Besylate (Norvasc) 5 Mg Tab Daily Active [facility] Cetirizine Hcl 10 Mg Tablet Daily Active [facility] Lisinopril 10 Mg Tablet Daily Active [facility] Minocycline Hcl 50 Mg Capsule Every 12 Hours Active [facility] Tramadol Hcl (Ultram) 50 Mg Tablet Every 8 Hours as needed for Pain Active [facility] raNITIdine HCl (ACID COMM[employer] HE[employer] NAVIGATOR) 150 mg tablet Take 150 mg by mouth 2 times daily. Oral Active [facility] Allergies, Adverse Reactions, Alerts Substance Category Reaction Severity Reaction type Status Date Reported Comments Source Sulfamethoxazole Unknown Allergy to Substance Active 04/23/2018 [facility] Trimethoprim Unknown Allergy to Substance Active 04/23/2018 [facility] Immunizations Immunization Date Given Site Status Last Updated Comments Source Tdap (Tetanus Toxoid, Reduced Diphtheria Toxoid And Acellular Pertussis, Absorbed) 09/03/[address] [facility] Influenza Vaccine 04/17/[address] [facility] Herpes Zoster Vaccine In Clinic 01/08/2016 Not Given Deferred: Other - Patient requesting to wait til next visit [facility] Tdap (Tetanus Toxoid, Reduced Diphtheria Toxoid And Acellular Pertussis, Absorbed) 07/19/[address] [facility] TDap (Tetanus Toxoid, Reduced Diphtheria Toxoid And Acellular Pertussis, Absorbed) 07/19/[address] [facility] TD (7+yrs) TETANUS AND DIPHTHERIA TOXOIDS), PRESERVATIVE FREE 06/17/[address] [facility] Results Order Name Results Value Reference Range Date Interpretation Comments Source 12 LEAD EKG 12 LEAD EKG FOR [facility] Test Date:2018-08-03 Pat Name: BEN Quinonezpartment: [id number] : Gender: FTechnician: [id number] Requested By: RAMAN MELISSA Order Number: [id number] MD: Monika Bolaños Measurements IntervalsAxis Rate: 74 P:60 TX: 136QRS:94 QRSD: 106T:82 QT: 369 QTc:411 Interpretive Statements SINUS RHYTHM BORDERLINE RIGHT AXIS DEVIATION Electronically Signed On 08-03-2018 11:53:05 CDT by Monika Bolaños 08/03/[address] [facility] Urine color determination YELLOW YELLOW 04/23/2018 [facility] Urine clarity HAZY CLEAR 04/23/2018 [facility] Specific gravity of Urine by Test strip 1.020 1.010 - 1.025 04/23/2018 [facility] Urine pH measurement by automated test strip 7 5 - 7 04/23/2018 [facility] Urine leukocyte esterase detection by dipstick 1+ NEGATIVE 04/23/2018 [facility] Urine nitrite detection NEGATIVE NEGATIVE 04/23/2018 [facility] Urine protein measurement by test strip (mass/volume) 2+ NEGATIVE 04/23/2018 [facility] Urine glucose detection NEGATIVE NEGATIVE 04/23/2018 [facility] Urine ketones detection by automated test strip NEGATIVE NEGATIVE 04/23/2018 [facility] Urine urobilinogen measurement by test strip (mass/volume) 0.2 0.2 - 1 04/23/2018 [facility] Urine total bilirubin measurement (mass/volume) NEGATIVE NEGATIVE 04/23/2018 [facility] Urine erythrocytes detection NEGATIVE NEGATIVE 04/23/2018 [facility] Automated urine sediment leukocyte count by microscopy (number/high power field) 11-20 0 - 5 04/23/2018 [facility] Erythrocytes detection in urine sediment by light microscopy 0-5 0 - 5 04/23/2018 [facility] Bacteria detection in urine sediment by light microscopy FEW NONE 04/23/2018 [facility] Epithelial cells detection in urine sediment by light microscopy FEW NONE 04/23/2018 [facility] Amorphous sediment detection in urine sediment by light microscopy FEW FEW 04/23/2018 [facility] Coarse granular casts detection in urine sediment by light microscopy 1-5 0 04/23/2018 [facility] Mucus detection in urine sediment by light microscopy FEW RARE 04/23/2018 [facility] Blood leukocytes automated count (number/volume) 7.64 4.8 - 10.8 04/23/2018 [facility] Blood erythrocytes automated count (number/volume) 4.07 3.6 - 5.1 04/23/2018 [facility] Blood hemoglobin measurement (moles/volume) 12.2 12.0 - 16.0 04/23/2018 [facility] Automated blood hematocrit (volume fraction) 37.6 34.2 - 44.1 04/23/2018 [facility] Automated erythrocyte mean corpuscular volume 92.4 81 - 99 04/23/2018 [facility] Automated erythrocyte mean corpuscular hemoglobin (mass per erythrocyte) 30.0 28 - 32 04/23/2018 [facility] Automated erythrocyte mean corpuscular hemoglobin concentration measurement (mass/volume) 32.4 31 - 35 04/23/2018 [facility] RDW BldCo-Rto 12.4 11.7 - 14.4 04/23/2018 [facility] Automated blood platelet count (count/volume) 213 140 - 360 04/23/2018 [facility] Automated blood segmented neutrophil count as percentage of total leukocytes 70.0 38.7 - 80.0 04/23/2018 [facility] Automated blood lymphocyte count as percentage ot total leukocytes 23.6 18.0 - 39.1 04/23/2018 [facility] Automated blood monocyte count as percentage of total leukocytes 5.1 4.4 - 11.3 04/23/2018 [facility] Automated blood eosinophil count as percentage of total leukocytes 0.5 0.0 - 6.0 04/23/2018 [facility] Automated blood basophil count as percentage of total leukocytes 0.4 0.0 - 1.0 04/23/2018 [facility] IM GRANULOCYTES % 0.4 0.0 - 1.0 04/23/2018 [facility] Automated blood neutrophil count 5.4 2.1 - 6.9 04/23/2018 [facility] Blood lymphocytes count (number/volume) 1.8 1.0 - 3.2 04/23/2018 [facility] Blood monocytes automated count (number/volume) 0.4 0.2 - 0.8 04/23/2018 [facility] Automated blood eosinophil count 0.0 0.0 - 0.4 04/23/2018 [facility] Automated blood basophil count (count/volume) 0.0 0.0 - 0.1 04/23/2018 [facility] Absolute Immature Granulocyte (auto 0.03 0 - 0.1 04/23/2018 [facility] Prothrombin time (PT) in platelet poor plasma by coagulation assay 13.5 11.9 - 14.5 04/23/2018 [facility] INR in Platelet poor plasma by Coagulation assay 0.95 04/23/2018 [facility] Activated partial thromboplastin time (aPTT) in platelet poor plasma bycoagulation assay 21.8 23.8 - 35.5 04/23/2018 [facility] Serum or plasma sodium measurement (moles/volume) 133 136 - 145 04/23/2018 [facility] Serum or plasma potassium measurement (moles/volume) 4.5 3.5 - 5.1 04/23/2018 [facility] Serum or plasma chloride measurement (moles/volume) 98 98 - 107 04/23/2018 [facility] Serum or plasma carbon dioxide, total measurement (moles/volume) 24 22 - 29 04/23/2018 [facility] Serum or plasma anion gap 15.5 8 - 16 04/23/2018 [facility] Serum or plasma urea nitrogen measurement (mass/volume) 15 7 - 26 04/23/2018 [facility] Serum or plasma creatinine measurement (mass/volume) 0.83 0.57 - 1.11 04/23/2018 [facility] Serum or plasma urea nitrogen/creatinine mass ratio 18 6 - 25 04/23/2018 [facility] Estimated glomerular filtration rate (GFR) determination > 60 60 04/23/2018 [facility] Glucose measurement 181 74 - 118 04/23/2018 [facility] Serum or plasma calcium measurement (mass/volume) 9.2 8.4 - 10.2 04/23/2018 [facility] Lactic Acid Level 14.1 4.5 - 19.8 04/23/2018 [facility] Serum or plasma magnesium measurement (mass/volume) 2.5 1.3 - 2.1 04/23/2018 [facility] Serum or plasma total bilirubin measurement (mass/volume) 0.5 0.2 - 1.2 04/23/2018 [facility] Aspartate Amino Transf (AST/SGOT) 73 5 - 34 04/23/2018 [facility] Serum or plasma alanine aminotransferase measurement (enzymatic activity/volume) 63 0 - 55 04/23/2018 [facility] Serum or plasma protein measurement (mass/volume) 7.3 6.5 - 8.1 04/23/2018 [facility] Serum or plasma albumin measurement (mass/volume) 3.5 3.5 - 5.0 04/23/2018 [facility] Plasma globulin measurement (mass/volume) 3.8 2.3 - 3.5 04/23/2018 [facility] Serum or plasma albumin/globulin mass ratio 0.9 0.8 - 2.0 04/23/2018 [facility] Serum or plasma alkaline phosphatase measurement (enzymatic activity/volume) 91 40 - 150 04/23/2018 [facility] BNP Bld-mCnc < 10.0 0 - 100 04/23/2018 [facility] Serum or plasma creatine kinase measurement (enzymatic activity/volume) 33 29 - 168 04/23/2018 [facility] Serum or plasma creatine kinase MB measurement (mass/volume) 0.30 0 - 5.0 04/23/2018 [facility] Troponin I measurement by highly sensitive enzyme immunoassay 0.005 0 - 0.300 04/23/2018 [facility] Serum or plasma triglyceride measurement (mass/volume) 70 0 - 149 04/12/2018 [facility] Serum or plasma cholesterol measurement (mass/volume) 167 0 - 199 04/12/2018 [facility] Serum or plasma cholesterol in LDL measurement (mass/volume) 90 60 - 130 04/12/2018 [facility] Serum or plasma cholesterol in HDL measurement (mass/volume) 63 40 - 60 04/12/2018 [facility] Serum or plasma total cholesterol/cholesterol in HDL mass ratio 2.7 3.0 - 3.6 04/12/2018 [facility] Urine opiates screening test NEGATIVE NEGATIVE 04/11/2018 [facility] Barbiturates screen, urine NEGATIVE NEGATIVE 04/11/2018 [facility] Urine phencyclidine detection by screening method NEGATIVE NEGATIVE 04/11/2018 [facility] Urine amphetamines detection by screen method > 1000 ng/mL NEGATIVE NEGATIVE 04/11/2018 [facility] Urine Methamphetamines Screen NEGATIVE NEGATIVE 04/11/2018 [facility] Urine benzodiazepines detection by screening method NEGATIVE NEGATIVE 04/11/2018 [facility] Urine cocaine measurement (mass/volume) NEGATIVE NEGATIVE 04/11/2018 [facility] Urine cannabinoids detection by screening method NEGATIVE NEGATIVE 04/11/2018 [facility] Urine methadone screen NEGATIVE NEGATIVE 04/11/2018 [facility] Influenza virus A and B antigen identification by immunofluorescence NEGATIVE NEGATIVE 04/11/2018 [facility] Serum or plasma amylase measurement (enzymatic activity/volume) 58 25 - 125 04/11/2018 [facility] Serum or plasma lipase measurement (enzymatic activity/volume) 37 8 - 78 04/11/2018 [facility] Serum or plasma thyrotropin measurement by detection limit <=0.005 miu/l (units/volume) 0.560 0.350 - 4.940 04/11/2018 [facility] Blood culture NO GROWTH AFTER 5 DAYS, FINAL REPORT 04/11/2018 [facility] MAMMOGRAM BILAT SCREEN DIGITAL <p>IMPRESSION: BENIGN</p><p> </p><p>There is no mammographic evidence of malignancy. A 1 year </p><p>scr eening mammogram is recommended.</p><p> </p><p>I have reviewed the study and agree with the findings in the </p><p>report.</p><p> </p><p>This document has been electronically signed.</p><p> </p><p>Carolyn Fitzgerald M.D.</p><p>ks,ct/:03/08/2018 08:20:45</p><p> </p><p>Surface Grinder Tender: [facility]</p><p>letter sent: Benign Exam</p><p>Mammogram BI-RADS: 2 Benign G0202 z12.31</p> IMPRESSION: BENIGN There is no mammographic evidence of malignancy. A 1 year screening mammogram is recommended. I have reviewed the study and agree with the findings in the report. This document has been electronically signed. Carolyn Fitzgerald M.D.ks,ct/:03/08/2018 08:20:45 Surface Grinder Tender[facility] ExamMammogram BI-RADS: 2 Benign G0202 z12.31 03/08/[address] [facility] MAMMOGRAM BILAT SCREEN DIGITAL <p> </p><p>#[id number] - MAMMOGRAM BILAT SCREEN DIGITAL</p><p>BILATERAL DIGITAL SCREENING MAMMOGRAM WITH CAD: 03/08/2018</p><p>CLINICAL: Annual.</p><p> </p><p>Comparison is made to exams dated:03/25/2017, 02/07/2016 </p><p>[facility], and 08/25/2012 [facility].</p><p>There are scattered fibroglandular elements in both [...] has been no significant interval change.</p><p> </p> #[id number] - MAMMOGRAM BILAT SCREEN DIGITALBILATERAL DIGITAL SCREENING MAMMOGRAM WITH CAD: 03/08/2018CLINICAL: Annual. Comparison is made to exams dated:03/25/2017, 02/07/2016 [facility], and 08/25/2012 [facility].There are scattered fibroglandular elements in both breasts that could obscure a lesion on mammography.Current study was also evaluated with a Computer Aided Detection (CAD) system. There are benign calcifications and an intramammary node in both breasts.There are mole markers on the left breast.No significant masses, calcifications, or other findings are seen in either breast.There has been no significant interval change. 03/08/[address] [facility] MAMMOGRAM BILAT SCREEN DIGITAL <p styleCode="header">Interface, Rad/Mammog In - 03/08/2018 9:36 AM RN FIELD CASE MANAGER</p><p>
<span>#[id number] - MAMMOGRAM BILAT SCREEN DIGITAL</span>
<span>BILATERAL DIGITAL SCREENING MAMMOGRAM WITH CAD: 03/08/2018</span>
<span>CLINICAL: Annual. </span>

<span>Comparison is made to exams dated: 03/25/2017, 02/07/2016 </span>
<span>[facility], and 08/25/2012 [facility]. </span>
<span>There are scattered fibroglandular [...] has been electronically signed.</span>

<span>Carolyn Fitzgerald M.D.</span>
<span>hi,ct/:03/08/2018 08:20:45 </span>

<span>Surface Grinder Tender: [facility]</span>
<span>letter sent: Benign Exam </span>
&a mp;lt;span>Mammogram BI-RADS: 2 Benign G0202 z12.31</span></p> Interface, Rad/Mammog In - 03/08/2018 9:36 AM RN FIELD CASE MANAGER #[id number] - MAMMOGRAM BILAT SCREEN DIGITAL BILATERAL DIGITAL SCREENING MAMMOGRAM WITH CAD: 03/08/2018 CLINICAL: Annual. Comparison is made to exams dated: 03/25/2017, 02/07/2016 [facility], and 08/25/2012 [facility]. There are scattered fibroglandular elements [...] has been electronically signed. Carolyn crow,ct/:03/08/2018 08:20:45 Surface Grinder Tender: [facility] letter sent: Benign Exam Mammogram BI-RADS: 2 Benign G0202 z12.31 03/08/[address] [facility] OCCULT BLOOD ICT <td ID="[id number]">Occult Blood ICT</td><td>Negative</td><td>NEG</td><td>[facility]</td><td ID="[id number]"/> Negative NEG 01/19/[address] [facility] HEMOGLOBIN A1C <td ID="[id number]">Hemoglobin A1c</td><td><span style="flagData">6.3</span><span style="flagData"> (H)</span></td><td>4.3 - 6.1 %</td><td>BT DIAGNOSTIC IMMUNOLOGY</td><td ID="[id number]"/> 6.3 4.3 - 6.1 01/12/[address] [facility] HEMOGLOBIN A1C Est Average Gluc 134.1 01/12/[address] [facility] HEMOGLOBIN A1C Lab Interpretation Abnormal 01/12/[address] [facility] CBC/DIFF <td ID="[id number]">WBC</td><td>6.4</td><td>4.5 - 11.0 K/uL</td><td>BT MAIN-STATION 2</td><td ID="[id number]"/> 6.4 4.5 - 11 01/11/[address] [facility] CBC/DIFF <td ID="[id number]">RBC</td><td><span style="flagData">4.09</span><span style="flagData"> (L)</span></td><td>4.20 - 5.40 M/uL</td><td>BT MAIN-STATION 2</td><td ID="[id number]"/> 4.09 4.20 - 5.40 01/11/[address] [facility] CBC/DIFF <td ID="[id number]">Hemoglobin</td><td>12.4</td><td>12.0 - 16.0 g/dL</td><td>BT MAIN-STATION 2</td><td ID="[id number]"/> 12.4 12 - 16 01/11/[address] [facility] CBC/DIFF <td ID="[id number]">Hematocrit</td><td>38.6</td><td>37.0 - 47.0 %</td><td>BT MAIN-STATION 2</td><td ID="[id number]"/> 38.6 37 - 47 01/11/[address] [facility] CBC/DIFF <td ID="[id number]">MCV</td><td><span style="flagData">94</span><span style="flagData"> (H)</span></td><td>82 - 92 fL</td><td>BT MAIN-STATION 2</td><td ID="[id number]"/> 94 82 - 92 01/11/[address] [facility] CBC/DIFF <td ID="[id number]">MCH</td><td>30.3</td><td>27.0 - 32.0 pg</td><td>BT MAIN-STATION 2</td><td ID="[id number]"/> 30.3 27 - 32 01/11/[address] [facility] CBC/DIFF <td ID="[id number]">MCHC</td><td>32.1</td><td>32.0 - 36.0 g/dL</td><td>BT MAIN-STATION 2</td><td ID="[id number]"/> 32.1 32 - 36 01/11/[address] [facility] CBC/DIFF <td ID="[id number]">RDW</td><td>43.9</td><td>36.4 - 46.3 fL</td><td>BT MAIN-STATION 2</td><td ID="[id number]"/> 43.9 36.4 - 46.3 01/11/[address] [facility] CBC/DIFF <td ID="[id number]">Platelet</td><td>248</td><td>150 - 400 K/uL</td><td>BT MAIN-STATION 2</td><td ID="[id number]"/> 248 150 - 400 01/11/[address] [facility] CBC/DIFF <td ID="[id number]">Mean Platelet Volume</td><td>11.9</td><td>9.4 - 12.4 fL</td><td>BT MAIN-STATION 2</td><td ID="[id number]"/> 11.9 9.4 - 12.4 01/11/[address] [facility] CBC/DIFF Percent NRBC 0.0 01/11/[address] [facility] CBC/DIFF Absolute NRBC 0.00 01/11/[address] [facility] CBC/DIFF <td ID="[id number]">Neutrophil</td><td><span style="flagData">72.8</span><span style="flagData"> (H)</span></td><td>34.0 - 70.0 %</td><td>BT MAIN-STATION 2</td><td ID="[id number]"/> 72.8 34 - 70 01/11/[address] [facility] CBC/DIFF <td ID="[id number]">Lymphocyte</td><td>20.2</td><td>20.0 - 50.0 %</td><td>BT MAIN-STATION 2</td><td ID="[id number]"/> 20.2 20 - 50 01/11/[address] [facility] CBC/DIFF <td ID="[id number]">Monocyte</td><td>5.6</td><td>5.0 - 12.0 %</td><td>BT MAIN-STATION 2</td><td ID="[id number]"/> 5.6 5 - 12 01/11/[address] [facility] CBC/DIFF <td ID="[id number]">Eosinophil</td><td><span style="flagData">0.6</span><span style="flagData"> (L)</span></td><td>0.7 - 5.0 %</td><td>BT MAIN-STATION 2</td><td ID="[id number]"/> 0.6 0.7 - 5 01/11/[address] [facility] CBC/DIFF <td ID="[id number]">Basophil</td><td>0.5</td><td>0.1 - 1.2 %</td><td>BT MAIN-STATION 2</td><td ID="[id number]"/> 0.5 0.1 - 1.2 01/11/[address] [facility] CBC/DIFF Pct Immat Gran 0.3 0.0 - 0.5 01/11/[address] [facility] CBC/DIFF Neutrophil, Abs 4.68 1.56 - 6.13 01/11/[address] [facility] CBC/DIFF Lymphocyte, Abs 1.30 1.18 - 3.74 01/11/[address] [facility] CBC/DIFF Monocyte, Abs 0.36 0.24 - 0.36 01/11/[address] [facility] CBC/DIFF Eosinophil, Abs 0.04 0.04 - 0.36 01/11/[address] [facility] CBC/DIFF Basophil, Abs 0.03 0.01 - 0.08 01/11/[address] [facility] CBC/DIFF Absol Immat Gran 0.02 0 - 0.03 01/11/[address] [facility] CBC/DIFF Lab Interpretation Abnormal 01/11/[address] [facility] COMPREHENSIVE METABOLIC PANEL(DBIL NOT INCLUDED) <td ID="[id number]">Albumin</td><td>4.8</td><td>3.7 - 5.3 g/dL</td><td>BT MAIN-STATION 1</td><td ID="[id number]"/> 4.8 3.7 - 5.3 01/11/[address] [facility] COMPREHENSIVE METABOLIC PANEL(DBIL NOT INCLUDED) <td ID="[id number]">Calcium</td><td>9.5</td><td>8.6 - 10.3 mg/dL</td><td>BT MAIN-STATION 1</td><td ID="[id number]"/> 9.5 8.6 - 10.3 01/11/[address] [facility] COMPREHENSIVE METABOLIC PANEL(DBIL NOT INCLUDED) <td ID="[id number]">CO2</td><td>29</td><td>21 - 31 mmol/L</td><td>BT MAIN-STATION 1</td><td ID="[id number]"/> 29 21 - 31 01/11/[address] [facility] COMPREHENSIVE METABOLIC PANEL(DBIL NOT INCLUDED) <td ID="[id number]">Chloride</td><td>102</td><td>98 - 107 mmol/L</td><td>BT MAIN-STATION 1</td><td ID="[id number]"/> 102 98 - 107 01/11/[address] [facility] COMPREHENSIVE METABOLIC PANEL(DBIL NOT INCLUDED) <td ID="[id number]">Creatinine</td><td><span style="flagData">0.50</span><span style="flagData"> (L)</span></td><td>0.6 - 1.2 mg/dL</td><td>BT MAIN-STATION 1</td><td ID="[id number]"/> 0.50 0.6 - 1.2 01/11/[address] [facility] COMPREHENSIVE METABOLIC PANEL(DBIL NOT INCLUDED) <td ID="[id number]">Glucose</td><td><span style="flagData">114</span><span style="flagData"> (H)</span></td><td>70 - 110 mg/dL</td><td>BT MAIN-STATION 1</td><td ID="[id number]"/> 114 70 - 110 01/11/[address] [facility] COMPREHENSIVE METABOLIC PANEL(DBIL NOT INCLUDED) <td ID="[id number]">Alk Phos</td><td>70</td><td>34 - 104 U/L</td><td>BT MAIN-STATION 1</td><td ID="[id number]"/> 70 34 - 104 01/11/[address] [facility] COMPREHENSIVE METABOLIC PANEL(DBIL NOT INCLUDED) <td ID="[id number]">Potassium</td><td>4.4</td><td>3.5 - 5.1 mmol/L</td><td>BT MAIN-STATION 1</td><td ID="[id number]"/> 4.4 3.5 - 5.1 01/11/[address] [facility] COMPREHENSIVE METABOLIC PANEL(DBIL NOT INCLUDED) <td ID="[id number]">Sodium</td><td>138</td><td>136 - 145 mmol/L</td><td>BT MAIN-STATION 1</td><td ID="[id number]"/> 138 136 - 145 01/11/[address] [facility] COMPREHENSIVE METABOLIC PANEL(DBIL NOT INCLUDED) <td ID="[id number]">ALT</td><td>16</td><td>7 - 52 U/L</td><td>BT MAIN-STATION 1</td><td ID="[id number]"/> 16 7 - 52 01/11/[address] [facility] COMPREHENSIVE METABOLIC PANEL(DBIL NOT INCLUDED) <td ID="[id number]">AST</td><td>18</td><td>13 - 39 U/L</td><td>BT MAIN-STATION 1</td><td ID="[id number]"/> 18 13 - 39 01/11/[address] [facility] COMPREHENSIVE METABOLIC PANEL(DBIL NOT INCLUDED) <td ID="[id number]">Urea Nitrogen</td><td>11</td><td>7 - 25 mg/dL</td><td>BT MAIN-STATION 1</td><td ID="[id number]"/> 11 7 - 25 01/11/[address] [facility] COMPREHENSIVE METABOLIC PANEL(DBIL NOT INCLUDED) <td ID="[id number]">T Bilirubin</td><td>0.4</td><td>0.2 - 1.2 mg/dL</td><td>BT MAIN-STATION 1</td><td ID="[id number]"/> 0.4 0.2 - 1.2 01/11/[address] [facility] COMPREHENSIVE METABOLIC PANEL(DBIL NOT INCLUDED) <td ID="[id number]">T Protein</td><td>8.0</td><td>6.0 - 8.3 g/dL</td><td>BT MAIN-STATION 1</td><td ID="[id number]"/> 8.0 6 - 8.3 01/11/[address] [facility] COMPREHENSIVE METABOLIC PANEL(DBIL NOT INCLUDED) GFR, Estimated >60 mL/min/1.73 m2 01/11/[address] [facility] COMPREHENSIVE METABOLIC PANEL(DBIL NOT INCLUDED) GFR, Estim, Afr-Am >60 mL/min/1.73 m2 01/11/[address] [facility] COMPREHENSIVE METABOLIC PANEL(DBIL NOT INCLUDED) Anion Gap 7 01/11/[address] [facility] COMPREHENSIVE METABOLIC PANEL(DBIL NOT INCLUDED) Lab Interpretation Abnormal 01/11/[address] [facility] LIPID PROFILE <td ID="[id number]">Cholesterol</td><td><span>223</span>
<span style="allIndent"><span style="cellHeader">Comment: </span>
<span ID="[id number]" style="pre">REFERENCE RANGE:
Desirable: <200 mg/dL
Borderline: 200-240 mg/dL
High Risk: >240 mg/dL

</span></span></td><td>mg/dL</td><td>BT MAIN-STATION 1</td><td ID=&amp ;quot;[id number]"/> 223 01/11/2018 REFERENCE RANGE:
Desirable: <200 mg/dL
Borderline: 200-240 mg/dL
High Risk: >240 mg/dL

[facility] LIPID PROFILE <td ID="[id number]">Triglyceride</td><td><span>82</span>
<span style="allIndent"><span style="cellHeader">Comment: </span>
<span ID="[id number]" style="pre">REFERENCE RANGE:
Normal: <150 mg/dL
Borderline High: 150-199 mg/dL
High: 200-499 mg/dL
Very High: >oi=695 mg/dL

</span></span></td><td><150 mg/dL</td><td>BT MAIN- STATION 1</td><td ID="[id number]"/> 82 <150 01/11/2018 REFERENCE RANGE:
Normal: <150 mg/dL
Borderline High: 150-199 mg/dL
High: 200-499 mg/dL
Very High: >pm=964 mg/dL

[facility] LIPID PROFILE <td ID="[id number]">HDL</td><td><span>73</span>
<span style="allIndent"><span style="cellHeader">Comment: </span>
<span ID="[id number]" style="pre">Increased CHD risk: <40 mg/dL
Decreased CHD risk: >60 mg/dL

</span></span>&am p;lt;/td><td>mg/dL</td><td>BT MAIN-STATION 1</td><td ID="[id number]"/> 73 01/11/2018 Increased CHD risk: <40 mg/dL
Decreased CHD risk: >60 mg/dL

[facility] LIPID PROFILE <td ID="[id number]">LDL</td><td><span>134</span>
<span style="allIndent"><span style="cellHeader">Comment: </span>
<span ID="[id number]" style="pre">REFERENCE RANGE:
Optimal: <100 mg/dL
Near Optimal: 100-129 mg/dL
Borderline High: 130-159 mg/dL
High: 160-189 mg/dL
Very High: >cp=186 mg/dL

</span></span></td><td>mg/dL</td><td>BT MAIN-STATION 1</td><td ID="[id number]"/> 134 01/11/2018 REFERENCE RANGE:
Optimal: <100 mg/dL
Near Optimal: 100-129 mg/dL
Borderline High: 130-159 mg/dL
High: 160-189 mg/dL
Very High: >hl=543 mg/dL

[facility] Pathology Reports No Data Provided for This [...] Albert Abdalla MD, 08/03/2018 12:28 PM 08/03/[address] [facility] BONE DENSITY (DUAL PHOTON) IMPRESSION: Finding is suggesting Osteopenia. There is focal osteoporosis in L4 withT score of -2.7. Signed By: Gorge Canada MD, 09/06/2017 11:55 AM EXAM: DEXA INDICATION: Bone mineral density screening TECHNIQUE: The patient underwent bone mineral densitometry using Rostelecomy SL dual energy x-ray absorptiometry (DEXA).T-score is tocompare the female peak bone mineral density (BMD). WHO definition ofosteoporosis is T<- 2.5 and osteopenia is T <-1.0. FINDINGS:Region...........BMD.....T scoreSpine L1-4....... 0.806 ..... -2.2Femoral Neck..... 0.645 ..... -1.8Total hip........ 0.748 ..... -1.6 Interface, Rad/Mammog In - 09/06/2017 12:01 PM CDT EXAM: DEXA INDICATION: Bone mineral density screening TECHNIQUE: The patient underwent bone mineral densitometry using HoloUfree Discovery SL dual energy x-ray absorptiometry (DEXA). [...] Gorge Canada MD, 09/06/2017 11:55 AM 09/06/[address] [facility] Consultation Notes No Data Provided for This Section Discharge Summaries No Data Provided for This Section History and Physicals No Data Provided for This Section Vital Signs Vital Sign Value Date Comments Source Systolic (mm Hg) 150 08/03/[address] [facility] Diastolic (mm Hg) 74 08/03/[address] [facility] Heart Rate 92 08/03/[address] [facility] Temperature Oral (F) 36.72 Sameera 08/03/2018 [facility] Respitory Rate 18 08/03/[address] [facility] Height 160 cm 08/03/[address] [facility] Weight 67.132 08/03/[address] [facility] Systolic (mm Hg) 131 01/11/2018 [facility] Diastolic (mm Hg) 69 01/11/[address] [facility] Heart Rate 83 01/11/[address] [facility] Temperature Oral (F) 37.06 Sameera 01/11/2018 [facility] Respitory Rate 18 01/11/[address] [facility] Height 162.6 cm 01/11/[address] [facility] Weight 70.67 01/11/[address] [facility] Encounters Location Location Details Encounter Type Encounter Number Reason For Visit Attending Provider ADM Date DC Date Status Source Family Practice [place] Refill [id number] Raman Melissa MD 08/04/2017 [facility] [place] Orders Only [id number] Raman Melissa MD 09/03/2017 [facility] [place] Office Visit [id number] Raman Melissa MD 09/03/2017 09/03/[address] [facility] Radiology [facility] Encounter [id number] Raman Melissa MD 09/06/2017 09/07/2017 [facility] [place] Office Visit [id number] Bryan Palmer MD 10/14/2017 10/14/2017 [facility] [place] Refill [id number] Raman Melissa MD 11/15/[address] [facility] [place] Refill [id number] Raman Melissa MD 11/17/[address] [facility] Ophthalmology/Optometry [facility] Office Visit [id number] Dahlia Argueta OD 12/02/2017 12/02/2017 [facility] [place] Refill [id number] Raman Melissa MD 01/03/2018 [facility] [place] Office Visit [id number] Raman Melissa MD 01/11/2018 01/11/[address] [facility] Laboratory [place] Lab Appointment [id number] Raman Melissa MD 01/11/2018 01/11/2018 [facility] [place] Orders Only [id number] Raman Melissa MD 01/19/2018 [facility] [place] Refill [id number] Raman Melissa MD 02/15/[address] [facility] Ophthalmology/Optometry [facility] Office Visit [id number] Dahlia Argueta OD 03/02/2018 03/02/[address] [facility] Mammography [place] Ancillary Procedure [id number] Raman Melissa MD 03/08/2018 03/08/[address] [facility] Discharged Inpatient [id number] SHAILESH JACKSON MD 04/11/2018 04/15/2018 [facility] Departed Emergency Room [id number] VAUGHN CANNON MD 04/23/2018 04/23/2018 [facility] Family [facility] [place] Refill [id number] Raman Melissa MD 05/06/[address] [facility] Travel [id number] 08/03/2018 [facility] [facility] Telephone [id number] Paco Villavicencio 08/03/2018 [facility] [place] Office Visit [id number] Raman Melissa MD 08/03/2018 08/03/[address] [facility] Radiology [place] Ancillary Procedure [id number] Raman Melissa MD 08/03/2018 08/03/2018 [facility] [place] Refill [id number] Raman Melissa MD 08/30/[address] [facility] Travel [id number] 09/13/[address] [facility] Procedures Procedure Code Date Perfomer Comments Source XRAY SHOULDER 2 [place] [address] 08/03/2018 [facility] 12 LEAD EKG 95854 08/03/2018 [facility] MAMMOGRAM BILAT SCREEN DIGITAL G0202 03/08/2018 [facility] OCCULT BLOOD ICT 31210 01/19/2018 [facility] HEMOGLOBIN A1C 49039 01/11/2018 [facility] LIPID PROFILE 45654 01/11/2018 [facility] CBC/DIFF 12958 01/11/2018 [facility] COMPREHENSIVE METABOLIC PANEL(DBIL NOT INCLUDED) 12660 01/11/2018 [facility] BONE DENSITY (DUAL PHOTON) 04492 09/06/2017 [facility] Assessment and Plan No Data Provided for This Section Plan of Care Plan of Care Date Source Breast Cancer Scrn (Yearly) 03/08/[address] [facility] Cervical Cancer Scrn (3 Yrs) 02/06/[address] [facility] Colorectal Cancer Scrn Annual (FIT/FOBT) Age 50 to 75 01/19/[address] [facility] Upcoming EncountersDateTypeSpecialtyCare TeamDescription 09/20/2018 Office Visit Family Practice Amilcar Juan III, MD[address] [place] [address]#[address] [place] [address] [phone] (Fax) results Health MaintenanceDue DateLast DoneComments Colorectal Cancer Scrn Annual (FIT/FOBT) Age 50 to 75 01/19/2019 01/19/2018, 01/13/2017, 01/10/2016 Cervical Cancer Scrn (3 Yrs) 02/06/2019 02/07/2016 Breast Cancer Scrn (Yearly) 03/08/2019 03/08/2018, 03/25/2017, 02/07/2016, Additional history exists 09/13/[address] [facility] Upcoming EncountersDateTypeSpecialtyCare TeamDescription 09/13/2018 Ancillary Procedure Radiology 09/20/2018 Office Visit Family Practice Raman Melissa MD[address] [facility], [place] [phone] (Fax) results Health MaintenanceDue DateLast DoneComments Colorectal Cancer Scrn Annual (FIT/FOBT) Age 50 to 75 01/19/2019 01/19/2018, 01/13/2017, 01/10/2016 Cervical Cancer Scrn (3 Yrs) 02/06/2019 02/07/2016 Breast Cancer Scrn (Yearly) 03/08/2019 03/08/2018, 03/25/2017, 02/07/2016, Additional history exists 08/22/[address] [facility] Upcoming EncountersDateTypeSpecialtyCare TeamDescription 08/03/2018 Office Visit Family Practice Raman Melissa MD[address] [place] [address]#[address] [place] [address] [phone] (Fax) Arrived Health MaintenanceDue DateLast DoneComments Colorectal Cancer Scrn Annual (FIT/FOBT) Age 50 to 75 01/19/2019 01/19/2018, 01/13/2017, 01/10/2016 Cervical Cancer Scrn (3 Yrs) 02/06/2019 02/07/2016 Breast Cancer Scrn (Yearly) 03/08/2019 03/08/2018, 03/25/2017, 02/07/2016, Additional history exists 08/03/[address] [facility] Upcoming EncountersDateTypeSpecialtyCare TeamDescription 08/03/2018 Office Visit Family Practice Raman Melissa MD[address] [place] [address]#[address] [place] [address] [phone] (Fax) f/u hpb, meds Health MaintenanceDue DateLast DoneComments Colorectal Cancer Scrn Annual (FIT/FOBT) Age 50 to 75 01/19/2019 01/19/2018, 01/13/2017, 01/10/2016 Cervical Cancer Scrn (3 Yrs) 02/06/2019 02/07/2016 Breast Cancer Scrn (Yearly) 03/08/2019 03/08/2018, 03/25/2017, 02/07/2016, Additional history exists 07/27/[address] [facility] Discharge Date 04/23/18 4:21pm Disposition HOME, SELF-CARE Condition at Discharge Stable Instructions/Education Provided Urinary Tract Infection - Women Forms Provided Work/School Excuse Prescriptions See Medication Section Referrals Md Shin Order Date: Call for an appointment Additional Instructions/Education Take medication as prescribed Follow up with PCP and cardiology in a couple of days 04/23/2018 [facility] Social History Social History Date Source Tobacco UseTypesPacks/DayYears UsedDate Never Smoker Smokeless Tobacco: Never Used Tobacco Cessation: Counseling Given: No Alcohol UseDrinks/Weekoz/WeekComments No Sex Assigned at BirthDate Recorded Not on file Job Start DateOccupationIndustry Not on file Not on file Not on file Travel HistoryTravel StartTravel End No recent travel history available. 08/03/[address] [facility] No social history information available. 04/23/2018 [facility] Family History Value Date Source Medical HistoryRelationNameComments Arthritis Father Cancer Mother pancreas cancer Diabetes Sister Heart Sister arrhythmia Hypertension Sister Hypothyroid Sister RelationNameStatusComments Brother Alive Father (Age 70) cirrhosis hepatic. Maternal Grandfather Maternal Grandmother Mother (Age 50) cancer pancreas Paternal Grandfather Paternal Grandmother Sister Alive Sister Sister Sister Sister 09/13/[address] [facility] Medical HistoryRelationNameComments Arthritis Father Cancer Mother pancreas cancer Diabetes Sister Heart Sister arrhythmia Hypertension Sister Hypothyroid Sister RelationNameStatusComments Brother Alive Father (Age 70) cirrhosis hepatic. Maternal Grandfather Maternal Grandmother Mother (Age 50) cancer pancreas Paternal Grandfather Paternal Grandmother Sister Alive Sister Sister Sister Sister 08/22/[address] [facility] Medical HistoryRelationNameComments Arthritis Father Cancer Mother pancreas cancer Diabetes Sister Heart Sister arrhythmia Hypertension Sister Hypothyroid Sister RelationNameStatusComments Brother Alive Father (Age 70) cirrhosis hepatic. Maternal Grandfather Maternal Grandmother Mother (Age 50) cancer pancreas Paternal Grandfather Paternal Grandmother Sister Alive Sister Sister Sister Sister 08/03/[address] [facility] Medical HistoryRelationNameComments Arthritis Father Cancer Mother pancreas cancer Diabetes Sister Heart Sister arrhythmia Hypertension Sister Hypothyroid Sister RelationNameStatusComments Brother Alive Father (Age 70) cirrhosis hepatic. Maternal Grandfather Maternal Grandmother Mother (Age 50) cancer pancreas Paternal Grandfather Paternal Grandmother Sister Alive Sister Sister Sister Sister 07/27/[address] [facility] Medical HistoryRelationNameComments Arthritis Father Cancer Mother pancreas cancer Diabetes Sister Heart Sister arrhythmia Hypertension Sister Hypothyroid Sister RelationNameStatusComments Brother Alive Father (Age 70) cirrhosis hepatic. Maternal Grandfather Maternal Grandmother Mother (Age 50) cancer pancreas Paternal Grandfather Paternal Grandmother Sister Alive Sister Sister Sister Sister 05/04/[address] [place] [facility] Advance Directives Order Name Results Value Date Source Advance Directives Advance Directives Directive Response Recorded Date/Time Does the patient have an advance directive? No 04/11/18 3:57pm Do you have a Directive to Physician? No 04/23/18 12:20pm Do you have a Medical Power of [employer]? No 04/23/18 12:20pm Do you have an [...] rights and responsibilities? Yes 04/23/18 12:20pm 04/23/2018 [facility] Functional Status No Data Provided for This Section
[2018-11-08] MEDS: SODIUM CHLORIDE 0.9% 1000ML 1,000 ML IV SCH ×2 (01:51→09:45)
[2018-11-08] MEDS ORDERED: TRAZODONE HCL50 MG PO (02:13)
[2018-11-08] MEDS ORDERED: ONDANSETRON HCL INJ 2MG/ML 2ML 2 MG/ML VIAL IV PRN (02:15)
[2018-11-08] MEDS ORDERED: ACETAMINOPHEN 325 MG TAB PO PRN (02:15)
[2018-11-08] MEDS ORDERED: MORPHINE SULFATE INJ 4 MG/ML INJ 1ML IV PRN (02:15)
--- NOTE | 2018-11-08 02:20 | NUR ---
Patient came via wheelchair accompanied by staff and her son. Patient is alert and conversant. IV to right AC intact with on going antibiotic. Patient assisted to bed. Oriented to room. No complain at this time.
[2018-11-08] MEDS: METRONIDAZOLE 500MG/NS 100ML 100 ML IV SCH ×2 (02:47→09:56)
[2018-11-08] MEDS ORDERED: CEFEPIME 1GM/NS 0.9% 50 ML 50 ML IV SCH (03:00)
[2018-11-08] MEDS: DEXTROSE 5%/0.9% SOD CHL 1,000 ML IV SCH ×2 (11:02→20:45)
[2018-11-08] MEDS: PIPER-TAZ 3.375 GM 50 ML IV SCH ×2 (11:02→20:08)
[2018-11-08] MEDS ORDERED: AMLODIPINE BESYLATE 10 MG TAB PO ONE (12:30)
[2018-11-08] MEDS ORDERED: LISINOPRIL 20 MG TAB PO ONE (12:30)
--- NOTE | 2018-11-08 14:07 | History and Physical ---
CHIEF COMPLAINT: Abdominal pain. HISTORY OF PRESENT ILLNESS: This is a 63-year-old female with past medical history of hypertension, comes into the ED with complaint of a 3-day history of abdominal pain on the right upper quadrant. The patient reports that it began suddenly right upper quadrant pain with subjective fever at home. Endorses some nausea, but no vomiting. Endorses decreased oral intake. Denies any chest pain or palpitation. She has never experienced anything like this before in the past. The patient came into the ER for further evaluation. She was found to have elevated LFTs and lipase level concerning for common bile duct obstruction. The patient was treated with IV antibiotic therapy and GI was consulted. The patient seen and evaluated at bedside on the medical floor. She is currently doing well, stable, at baseline with no other issues at this time. REVIEW OF SYSTEMS: Pertinent positives: Abdominal pain, nausea, decreased oral intake. Pertinent negatives: Denies any chest pain, palpitation, dysuria, hematuria, frequency, urgency, lightheadedness, dizziness, cough, congestion, fever, or any other complaints. The rest of 14-point review of systems have been reviewed with the patient and are negative. ALLERGIES: BACTRIM. HOME MEDICATIONS: Amlodipine 10 mg daily, lisinopril 20 mg daily, sertraline 10 mg daily, and trazodone 50 mg at bedtime as needed for sleep. PAST MEDICAL HISTORY: Hypertension. PAST SURGICAL HISTORY: None. FAMILY HISTORY: Hypertension and diabetes. SOCIAL HISTORY: No drugs. No alcohol. Does not smoke. Good social support. PHYSICAL EXAMINATION: VITAL SIGNS: Temperature is 98.7, pulse 70, respiratory rate is 18, blood pressure 152/77, and pulse ox is 98% on room air. GENERAL: Not in acute distress. Alert and oriented x3. Cooperative on examination. HEENT: Head is normocephalic and atraumatic. Eyes; pupils are equal, round, and reactive to light bilaterally. Extraocular movements are intact bilaterally. Throat, no evidence of erythema or exudates in the posterior pharynx. Has poor dentition. NECK: Supple. Good range of motion. PULMONARY: Clear to auscultation bilaterally. No wheezing, no rales, no rhonchi, no crackles appreciated. CARDIOVASCULAR: Positive S1, S2. No murmurs, rubs, or gallops appreciated. ABDOMEN: Soft, nondistended, and nontender to palpation. Bowel sounds present. MUSCULOSKELETAL: Strength is 5/5 throughout. No evidence of any muscle deficits on examination. No weakness appreciated. NEUROLOGICAL: Cranial nerves 2 through 12 grossly intact. No evidence of any neurological deficits on exam. SKIN: Intact. Warm to touch. Good cap refill. PSYCHIATRIC: Normal affect and mood. EXTREMITIES: No edema. Good range of motion throughout. LABORATORY DATA: Lab findings show white count was 16, hemoglobin was 12, hematocrit is 36.9, platelets of 258. Chemistries; sodium 139, potassium 3.9, chloride was 99, bicarbonate 29, anion gap of 14, BUN is 10, creatinine is 0.79, glucose 135, calcium is 10. Total bilirubin was 0.8, AST 342, ALT 286, alkaline phosphatase 187, total protein 7.9, albumin is 4.1, amylase was 2173, lipase is greater than 1200. Urinalysis concerning for underlying urinary tract infection. MICROBIOLOGY: Urine cultures are pending. IMAGING STUDIES: CT abdomen and pelvis with IV contrast; impression, distended common bile duct with enhancing wall and gradual distal tapering. There is also mild periduodenal fat stranding at the junction of the 2nd and 3rd portions. Infectious process such as cholangitis or mild focal duodenitis cannot be excluded. There is also choledocholithiasis. 6 mm ground-glass right lower lobe nodule, repeat CT in 6-12 months. I reviewed and discussed the findings of the CT with the patient and they verbalized understanding. IMPRESSION: 1. Elevated transaminases. 2. Acute pancreatitis. 3. Concern for choledocholithiasis. 4. Concerning for ascending cholangitis. 5. Hypertension. PLAN: At this time, the patient has a pacemaker, so we are unable to perform an MRCP, instead CT scan is the only test we have right now. GI was consulted, the patient may need an ERCP. Continue with IV antibiotics for now. Get repeat labs in the morning, CMP, CBC, and a lipase level. We will go ahead and restart her home medications with small sips of water. Continue with pain control and antinausea medications. I discussed plan of care at bedside using the nurse who was translating. They verbalized understanding and agreed to plan of care. MD KATHRYN Mcgregor/AKIL /[id number]
[2018-11-08 14:44] LABS: BASOPHILS % 0.3 % (0.0-1.0); EOSINOPHILS # (AUTO) 0.1 (0.0-0.4); EOSINOPHILS % 0.7 % (0.0-6.0); HEMATOCRIT 34.1 % (34.2-44.1); HEMOGLOBIN 11.3 g/dL (12.0-16.0); LYMPHOCYTES # (AUTO) 1.6 (1.0-3.2); LYMPHOCYTES % 24.4 % (18.0-39.1); MEAN CORPUSCULAR HEMOGLOBIN 30.6 pg (28-32); MEAN CORPUSCULAR HGB CONC 33.1 g/dL (31-35); MEAN CORPUSCULAR VOLUME 92.4 fL (81-99); MONOCYTES # (AUTO) 0.4 (0.2-0.8); MONOCYTES % 6.6 % (4.4-11.3); NEUTROPHILS # (AUTO) 4.5 (2.1-6.9); NEUTROPHILS % 67.7 % (38.7-80.0); PLATELET COUNT 230 x10e3/uL (140-360); RED BLOOD COUNT 3.69 x10e6/uL (3.6-5.1); RED CELL DISTRIBUTION WIDTH 12.7 % (11.7-14.4)
[2018-11-08 15:06] LABS: ALANINE AMINOTRANSFERASE 290 IU/L (0-55); ALBUMIN 3.6 g/dL (3.5-5.0); ALBUMIN/GLOBULIN RATIO 1.1 (0.8-2.0); ALKALINE PHOSPHATASE 175 IU/L (40-150); BLOOD UREA NITROGEN 8 mg/dL (7-26); BUN/CREATININE RATIO 11 (6-25); CALCIUM 9.1 mg/dL (8.4-10.2); CARBON DIOXIDE 28 mmol/L (22-29); CHLORIDE 105 mmol/L (98-107); CREATININE, SERUM 0.71 mg/dL (0.57-1.11); EST GLOMERULAR FILTRATION RATE > 60 ML/MIN (60-); GLUCOSE 111 mg/dL (74-118); SODIUM 140 mmol/L (136-145)
[2018-11-08 15:43] LABS: AMYLASE 397 U/L (25-125); LIPASE 507 U/L (8-78)
[2018-11-09] VITALS (7 sets, daily range): BP systolic 129–141; BP diastolic 67–76
[2018-11-09] MEDS: PIPER-TAZ 3.375 GM 50 ML IV SCH ×3 (04:00→19:44)
[2018-11-09 05:54] LABS: BASOPHILS % 0.5 % (0.0-1.0); EOSINOPHILS # (AUTO) 0.1 (0.0-0.4); EOSINOPHILS % 1.8 % (0.0-6.0); HEMATOCRIT 35.5 % (34.2-44.1); HEMOGLOBIN 11.4 g/dL (12.0-16.0); LYMPHOCYTES # (AUTO) 1.2 (1.0-3.2); LYMPHOCYTES % 18.4 % (18.0-39.1); MEAN CORPUSCULAR HEMOGLOBIN 29.8 pg (28-32); MEAN CORPUSCULAR HGB CONC 32.1 g/dL (31-35); MEAN CORPUSCULAR VOLUME 92.7 fL (81-99); MONOCYTES # (AUTO) 0.5 (0.2-0.8); MONOCYTES % 7.4 % (4.4-11.3); NEUTROPHILS # (AUTO) 4.7 (2.1-6.9); NEUTROPHILS % 71.6 % (38.7-80.0); PLATELET COUNT 222 x10e3/uL (140-360); RED BLOOD COUNT 3.83 x10e6/uL (3.6-5.1); RED CELL DISTRIBUTION WIDTH 12.6 % (11.7-14.4)
[2018-11-09 06:32] LABS: ALANINE AMINOTRANSFERASE 233 IU/L (0-55); ALBUMIN 3.6 g/dL (3.5-5.0); ALBUMIN/GLOBULIN RATIO 1.1 (0.8-2.0); ALKALINE PHOSPHATASE 160 IU/L (40-150); ANION GAP 11.2 mmol/L (8-16); BLOOD UREA NITROGEN 6 mg/dL (7-26); BUN/CREATININE RATIO 9 (6-25); CALCIUM 9.1 mg/dL (8.4-10.2); CARBON DIOXIDE 28 mmol/L (22-29); CHLORIDE 106 mmol/L (98-107); CREATININE, SERUM 0.67 mg/dL (0.57-1.11); EST GLOMERULAR FILTRATION RATE > 60 ML/MIN (60-); GLUCOSE 131 mg/dL (74-118); POTASSIUM 4.2 mmol/L (3.5-5.1); SODIUM 141 mmol/L (136-145)
[2018-11-09] MEDS: DEXTROSE 5%/0.9% SOD CHL 1,000 ML IV SCH ×2 (06:45→17:50)
--- NOTE | 2018-11-09 07:00 | NUR ---
bedside shift report received by night rn, pt in stable condition, denies pain at this time, ivf infuisng to r ac 18g no ss of infiltration noted, no other co vocied call light in reach will continue to Monitor
[2018-11-09] MEDS: LISINOPRIL 20 MG TAB PO SCH (09:33)
[2018-11-09] MEDS: AMLODIPINE BESYLATE 10 MG TAB PO SCH (09:33)
--- NOTE | 2018-11-09 10:45 | NUR ---
Visit made by the Spiritual Care Department Pastoral Visitor, Mihaela Hilton. PV provided pastoral presence, prayer, hospitality, and supportive listening. Pastoral Visitor informed pt/family of the scope of [employer] and availability. SAMRA ALVARENGA Roofing Machine Operator Spiritual Care Department O: [phone] Pager: [phone] ([phone] calling from)
--- NOTE | 2018-11-09 13:37 | Progress Note ---
DATE: 11/09/2018 Medicine Progress Note SUBJECTIVE: The patient is doing well today with no complaints. Right upper quadrant liver ultrasound was ordered by GI. Her LFTs are improving. Her pain is much controlled. I am not sure exactly the next plan of care based on GI standpoint at this time. PHYSICAL EXAMINATION: VITAL SIGNS: Temperature is 97.9, pulse 69, respiratory rate is 18, blood pressure 132/67, and pulse ox 97% on room air. GENERAL: Not in acute distress. Alert and oriented x3. Cooperative on examination. HEENT: Head is normocephalic and atraumatic. Eyes; pupils are equal, round, and reactive to light bilaterally. Extraocular movements are intact bilaterally. Throat, no evidence of erythema or exudates in the posterior pharynx. Has poor dentition. NECK: Supple with good range of motion. PULMONARY: Clear to auscultation bilaterally. No wheezing, no rales, no rhonchi, no crackles appreciated. CARDIOVASCULAR: Positive S1, S2. No murmurs, rubs, or gallops appreciated. ABDOMEN: Soft, nondistended, and nontender to palpation. Bowel sounds present. MUSCULOSKELETAL: Strength is 5/5 throughout. No evidence of any muscle deficits on examination. No weakness appreciated. NEUROLOGICAL: Cranial nerves II through XII grossly intact. No evidence of any neurological deficits on exam. SKIN: Intact. Warm to touch. Good cap refill. PSYCHIATRIC: Normal affect and mood. EXTREMITIES: No edema. Good range of motion throughout. LABORATORY DATA: Lab findings show white count of 6.5, hemoglobin 11.4, hematocrit 35, platelets of 222. Chemistries reviewed, it showed sodium 141, potassium 4.2, chloride 106, bicarb 28, anion gap of 11, BUN of 6, creatinine is 0.67, glucose is 131, calcium 9.1, total bilirubin 0.4, AST 114, ALT 233, alkaline phosphatase 160, albumin 3.6. Lipase level has down trended to 174. MICROBIOLOGY: Urine cultures shows no growth. IMAGING STUDIES: Liver ultrasound pending. IMPRESSION: 1. Elevated transaminases. 2. Acute pancreatitis with improved lipase level. 3. Concern for choledocholithiasis. 4. Concerning for ascending cholangitis. 5. Hypertension. PLAN: At this time, MRCP cannot be performed due to the patient has a pacer. CT imaging has been reviewed. Liver ultrasound was just ordered, results are pending. Continue with IV antibiotics for now. She will continue with n.p.o. with small ice chips. Pain control, antinausea medication. Await final recommendations by the GI specialist for further evaluation and management. Otherwise, we will get a.m. labs. MD KATHRYN Mcgregor/AKIL /[id number]
--- NOTE | 2018-11-09 13:41 | Diagnostic Imaging Report ---
EXAM: Right upper quadrant abdominal ultrasound INDICATION: Right upper quadrant pain COMPARISON: None. TECHNIQUE: Transverse and longitudinal images of the right upper quadrant abdomen were obtained FINDINGS: Liver: Size: 11.7 cm in the right midclavicular line, normal Appearance: Increased echogenicity, smooth contour Mass: No focal masses Gallbladder: There is cholelithiasis with stones measuring up to 1.4 cm. No gallbladder wall thickening (2 mm), pericholecystic fluid, or gallbladder dilation. Negative sonographic Adams's sign. Bile Ducts: Intrahepatic Ducts: No dilatation Extrahepatic Ducts: Common bile duct measures 0.4cm, no dilatation Pancreas: Visualized portions of the pancreatic head, neck and proximal body are normal. Kidney: The right kidney measures 10.2 cm without evidence of hydronephrosis or stone. Vessels: Aorta: Visualized portions are normal Inferior Vena Cava: Visualized portions are normal Main Portal Vein: 0.8 cm, normal size with hepatopetal flow. Free Fluid: No ascites or pleural effusion IMPRESSION: Cholelithiasis with no sonographic evidence of cholecystitis. Mild increased echogenicity of hepatic parenchyma may represent hepatic steatosis. Signed by: Shelton Prieto MD on 11/09/2018 1:38 PM
--- NOTE | 2018-11-09 18:45 | NUR ---
Received bedside report from day shift RN. The patient is laying on the bed, alert and oriented, and not in distress. Call light within reach, bed height low, wheels lock, and side rails up x2. Family members and friends at bedside.
--- NOTE | 2018-11-09 18:53 | NUR ---
report given to oncoming night rn, pt left in stable condition
[2018-11-10] VITALS (8 sets, daily range): BP systolic 120–140; BP diastolic 55–73
[2018-11-10] MEDS: DEXTROSE 5%/0.9% SOD CHL 1,000 ML IV SCH ×3 (01:10→14:30)
--- NOTE | 2018-11-10 02:00 | NUR ---
Dr. Mo Dave stated the patient will need to have a general surgeon for 2nd opinion regarding the gall bladder.. The consult will be up to Dr. Rivas.
[2018-11-10] MEDS: PIPER-TAZ 3.375 GM 50 ML IV SCH ×3 (04:24→20:18)
[2018-11-10 06:00] LABS: BASOPHILS % 0.4 % (0.0-1.0); EOSINOPHILS # (AUTO) 0.1 (0.0-0.4); EOSINOPHILS % 1.4 % (0.0-6.0); HEMATOCRIT 35.5 % (34.2-44.1); HEMOGLOBIN 11.4 g/dL (12.0-16.0); LYMPHOCYTES % 29.1 % (18.0-39.1); MEAN CORPUSCULAR HGB CONC 32.1 g/dL (31-35); MEAN CORPUSCULAR VOLUME 93.4 fL (81-99); MONOCYTES # (AUTO) 0.6 (0.2-0.8); MONOCYTES % 8.9 % (4.4-11.3); NEUTROPHILS # (AUTO) 4.2 (2.1-6.9); NEUTROPHILS % 60.1 % (38.7-80.0); PLATELET COUNT 141 x10e3/uL (140-360); RED CELL DISTRIBUTION WIDTH 12.3 % (11.7-14.4)
[2018-11-10 06:27] LABS: ALANINE AMINOTRANSFERASE 152 IU/L (0-55); ALBUMIN 3.4 g/dL (3.5-5.0); ALKALINE PHOSPHATASE 131 IU/L (40-150); ANION GAP 10.8 mmol/L (8-16); BLOOD UREA NITROGEN 5 mg/dL (7-26); BUN/CREATININE RATIO 8 (6-25); CALCIUM 8.9 mg/dL (8.4-10.2); CARBON DIOXIDE 26 mmol/L (22-29); CHLORIDE 107 mmol/L (98-107); CREATININE, SERUM 0.65 mg/dL (0.57-1.11); EST GLOMERULAR FILTRATION RATE > 60 ML/MIN (60-); GLUCOSE 112 mg/dL (74-118); POTASSIUM 3.8 mmol/L (3.5-5.1); SODIUM 140 mmol/L (136-145)
[2018-11-10 06:40] LABS: AMYLASE 74 U/L (25-125); LIPASE 67 U/L (8-78)
--- NOTE | 2018-11-10 07:00 | NUR ---
BEDSIDE SHIFT REPORT RECEIVED FROM NIGHT RN, PT IN STABLE CONDITION, IVF INFUSING WITHOUT DIFFICULTY TO R AC20G NO SS OF INFILTRATION NOTED, DENIES PAIN, NO OTHER CO VOICED CALL LIGHT IN REACH WILL CONTINUE OT MONITOR
[2018-11-10 09:34] LABS: EOSINOPHILS % (MANUAL) 3 % (0-7); LYMPHOCYTES % (MANUAL) 24 % (19-48); MONOCYTES % (MANUAL) 9 % (3.4-9.0); NEUTROPHILS % (MANUAL) 64 % (40-74); PLATELET ESTIMATE ADEQUATE; PLATELET MORPHOLOGY COMMENT NORMAL; RBC MORPHOLOGY COMMENT NORMAL
[2018-11-10] MEDS: LISINOPRIL 20 MG TAB PO SCH (10:06)
[2018-11-10] MEDS: AMLODIPINE BESYLATE 10 MG TAB PO SCH (10:06)
--- NOTE | 2018-11-10 10:30 | NUR ---
SPOKE WITH DR. Mo DUKE RE: PROGRESS NOTED, FOR HIDA SCAN BUT NO ORDER, INFORMED THIS NURSE NO NEED FOR HIDA SCAN, JUST CONSULT SURGEON. DR. Lito AUGUST CONSULTED
--- NOTE | 2018-11-10 13:43 | Progress Note ---
DATE: 11/10/2018 Medicine Progress Note SUBJECTIVE: The patient is doing much better today. After reviewing the right upper quadrant ultrasound, GI wanted a General Surgery consultation, which was placed. Dr. Choi is on-call. He will come and evaluate the patient. The patient denies any pain at this time. She is on ice chips for now. PHYSICAL EXAMINATION: VITAL SIGNS: Temperature is 98.1, pulse 68, respiratory rate is 18, blood pressure 132/70, pulse ox 100% on room air. GENERAL: Not in acute distress. Alert and oriented x3. Cooperative on examination. HEENT: Head is normocephalic and atraumatic. Eyes; pupils are equal, round, and reactive to light bilaterally. Extraocular movements are intact bilaterally. Throat, no evidence of erythema or exudates in the posterior pharynx. Has poor dentition. NECK: Supple with good range of motion. PULMONARY: Clear to auscultation bilaterally. No wheezing, no rales, no rhonchi, no crackles appreciated. CARDIOVASCULAR: Positive S1, S2. No murmurs, rubs, or gallops appreciated. ABDOMEN: Soft, nondistended, and nontender to palpation. Bowel sounds present. MUSCULOSKELETAL: Strength is 5/5 throughout. No evidence of any muscle deficits on examination. No weakness appreciated. NEUROLOGICAL: Cranial nerves II through XII grossly intact. No evidence of any neurological deficits on exam. SKIN: Intact. Warm to touch. Good cap refill. PSYCHIATRIC: Normal affect and mood. EXTREMITIES: No edema. Good range of motion throughout. LABORATORY DATA: Labs show white count 6.9, hemoglobin 11.4, hematocrit 35, platelets of 141. Chemistry; sodium 140, potassium 3.8, chloride 107, bicarb 26, anion gap of 10, BUN is 5, creatinine is 0.65, glucose is 112, calcium is 8.9, total bilirubin is 0.3, AST 49, ALT 152, total protein is 6.8, albumin was 3.4, lipase is 67 and improving. MICROBIOLOGY: Urine cultures were negative. IMPRESSION: 1. Elevated transaminases. 2. Acute pancreatitis with improved lipase level. 3. Choledocholithiasis with also underlying gallstones in the gallbladder, but no evidence of cholecystitis. 4. Concerning for underlying ascending cholangitis. 5. Hypertension. PLAN: At this time right upper quadrant ultrasound is consistent with cholelithiasis. No evidence of acute cholecystitis. GI recommends General Surgery consultation. On-call general surgeon has been consulted. Continue with n.p.o., ice chips, IV antibiotics, pain control. Antinausea medication. At this time, we will continue with same plan of care and await for the consultants for further recommendations and plans. Discussed plan of care with the patient at bedside with the family present with the nursing staff present as well. MD KATHRYN Mcgregor/MODL /[id number]
--- NOTE | 2018-11-10 18:45 | NUR ---
Received bedside report from day RN. The patient is laying on the bed, A/Ox4, not in distress and reported no pain. Family members at beside. Call light within reach, bed height low, side rails up x2, and wheels locked.
[2018-11-11] VITALS: BP 134/75
[2018-11-11 04:00] VITALS: BP 152/80
[2018-11-11] MEDS: PIPER-TAZ 3.375 GM 50 ML IV SCH ×3 (04:18→20:45)
[2018-11-11 05:41] LABS: BASOPHILS # (AUTO) 0.1 (0.0-0.1); BASOPHILS % 0.7 % (0.0-1.0); EOSINOPHILS # (AUTO) 0.2 (0.0-0.4); EOSINOPHILS % 2.2 % (0.0-6.0); HEMATOCRIT 35.5 % (34.2-44.1); HEMOGLOBIN 11.6 g/dL (12.0-16.0); LYMPHOCYTES # (AUTO) 1.8 (1.0-3.2); LYMPHOCYTES % 25.5 % (18.0-39.1); MEAN CORPUSCULAR HEMOGLOBIN 29.7 pg (28-32); MEAN CORPUSCULAR HGB CONC 32.7 g/dL (31-35); MONOCYTES # (AUTO) 0.6 (0.2-0.8); MONOCYTES % 8.8 % (4.4-11.3); NEUTROPHILS # (AUTO) 4.5 (2.1-6.9); NEUTROPHILS % 62.5 % (38.7-80.0); PLATELET COUNT 222 x10e3/uL (140-360); RED CELL DISTRIBUTION WIDTH 12.2 % (11.7-14.4)
[2018-11-11 06:14] LABS: ALANINE AMINOTRANSFERASE 124 IU/L (0-55); ALBUMIN 3.5 g/dL (3.5-5.0); ALKALINE PHOSPHATASE 120 IU/L (40-150); ANION GAP 13.3 mmol/L (8-16); BLOOD UREA NITROGEN 5 mg/dL (7-26); BUN/CREATININE RATIO 8 (6-25); CARBON DIOXIDE 25 mmol/L (22-29); CHLORIDE 107 mmol/L (98-107); CREATININE, SERUM 0.65 mg/dL (0.57-1.11); EST GLOMERULAR FILTRATION RATE > 60 ML/MIN (60-); GLUCOSE 114 mg/dL (74-118); POTASSIUM 3.3 mmol/L (3.5-5.1); SODIUM 142 mmol/L (136-145)
[2018-11-11 08:30] VITALS: BP 133/75
--- NOTE | 2018-11-11 08:30 | NUR ---
Patient alert and responsive, VSS, no c/o pains, hypokalemia reported to attending and orders for KCL 40 meqx1, call light within reach, will monitor.
[2018-11-11] MEDS: DEXTROSE 5%/0.9% SOD CHL 1,000 ML IV SCH ×2 (08:45→18:45)
[2018-11-11] MEDS: AMLODIPINE BESYLATE 10 MG TAB PO SCH (09:00)
[2018-11-11] MEDS: LISINOPRIL 20 MG TAB PO SCH (09:00)
[2018-11-11 10:21] VITALS: BP 133/75
[2018-11-11] MEDS ORDERED: LIDOCAINE HCL 2% LOCAL INJ 5 ML SDV VIAL INJ ONE (10:54)
[2018-11-11] MEDS ORDERED: NEOSTIGMINE 5 MG/5ML SYR ONE (10:54)
[2018-11-11] MEDS ORDERED: SEVOFLURANE INHAL SOLN 250 ML PEN BTL ONE (10:54)
[2018-11-11] MEDS ORDERED: DEXAMETHASONE SOD PHOS INJ 4 MG/ML VIAL ONE (10:54)
[2018-11-11] MEDS ORDERED: PROPOFOL IV EMULSION 10 MG/ML 20 ML VIAL ONE (10:54)
[2018-11-11] MEDS ORDERED: ONDANSETRON HCL INJ 2MG/ML 2ML 2 MG/ML VIAL ONE (10:54)
[2018-11-11] MEDS ORDERED: ROCURONIUM BROMIDE 10 MG/ML 5ML VIAL ONE (10:54)
[2018-11-11] MEDS ORDERED: GLYCOPYRROLATE INJ 1MG/ 5 ML SYR ONE (10:54)
[2018-11-11] MEDS ORDERED: POTASSIUM CHLORIDE 20 MEQ TAB CR PO ONE (11:30)
[2018-11-11 12:12] VITALS: BP 150/76
--- NOTE | 2018-11-11 14:00 | NUR ---
Patient picked up for procedure.
--- NOTE | 2018-11-11 14:10 | Progress Note ---
DATE: 11/11/2018 Medicine Progress Note SUBJECTIVE: The patient is here for laparoscopic cholecystectomy later today. She is doing well. No overnight events. Potassium replaced. PHYSICAL EXAMINATION: VITAL SIGNS: Afebrile. Normotensive. Respiratory rate is good. GENERAL: Not in acute distress. Alert and oriented x3. Cooperative on examination. HEENT: Head is normocephalic and atraumatic. Eyes; pupils are equal, round, and reactive to light bilaterally. Extraocular movements are intact bilaterally. Throat, no evidence of any erythema or exudates in the posterior pharynx. Has poor dentition. NECK: Supple with good range of motion. PULMONARY: Clear to auscultation bilaterally. No wheezing, no rales, no rhonchi, no crackles appreciated. CARDIOVASCULAR: Positive S1, S2. No murmurs, rubs, or gallops appreciated. ABDOMEN: Soft, nondistended, and nontender to palpation. Bowel sounds present. MUSCULOSKELETAL: Strength is 5/5 throughout. No evidence of any muscle deficits on examination. No weakness appreciated. NEUROLOGICAL: Cranial nerves II through XII grossly intact. No evidence of any neurological deficits on exam. SKIN: Intact. Warm to touch. Good cap refill. PSYCHIATRIC: Normal affect and mood. EXTREMITIES: No edema. Good range of motion throughout. LABORATORY DATA: Labs reviewed and stable except for no potassium replaced. IMPRESSION: 1. Choledocholithiasis with elevated transaminase with underlying gallstones scheduled for laparoscopic cholecystectomy later today. 2. Concern for ascending cholangitis. 3. Acute pancreatitis, improved. 4. Hypertension. PLAN: Scheduled for laparoscopic cholecystectomy later today by General Surgery. GI and General Surgery following. She is still n.p.o. She will likely be on clear liquid diet after surgery. Continue with pain control, IV antibiotics. If she does well and cleared by surgery, likely discharge home tomorrow. MD KATHRYN Mcgregor/AKIL /[id number]
[2018-11-11] MEDS ORDERED: BUPIVACAINE 0.25%/EPI 30ML SDV INJ ONE (14:42)
[2018-11-11] MEDS ORDERED: IOPAMIDOL 610MG/1ML 300 MG/ML VIAL IV ONE (14:42)
[2018-11-11] MEDS ORDERED: HYDROMORPHONE 2MG/ML 2 MG/ML ML ONE (16:47)
--- NOTE | 2018-11-11 17:01 | Diagnostic Imaging Report ---
EXAMINATION: CHOLANGIOGRAM INTROP INDICATION: Intraoperative cholangiogram Radiation exposure: Fluoroscopy time: 00:22 minutes Cumulative air kerma: 12.16mGy FINDINGS: Intraoperative cholangiogram images demonstrate opacification of the common bile duct with free flow of contrast into the small bowel and no filling defects to suggest common bile duct stone. IMPRESSION: Intraoperative cholangiogram as above. Signed by: Shelton Prieto MD on 11/11/2018 4:58 PM
--- NOTE | 2018-11-11 17:20 | Operative Report ---
DATE OF PROCEDURE: 11/11/2018 SURGEON: Anthony Choi MD PREOPERATIVE DIAGNOSES: Cholecystitis, cholelithiasis, and gallstone pancreatitis, rule out common bile duct stones. POSTOPERATIVE DIAGNOSES: Cholecystitis, cholelithiasis, gallstone pancreatitis, and no retained common bile duct stones. OPERATION PERFORMED: Laparoscopic cholecystectomy with intraoperative cholangiogram. CHIP BIN CONVEYOR TENDER: Edmundo Choi MD ANESTHESIA: General endotracheal. COMPLICATIONS: None. ESTIMATED BLOOD LOSS: Minimal. DESCRIPTION OF PROCEDURE: With the patient lying in bed in the supine position under good general endotracheal anesthesia, the abdomen was prepped with Betadine solution and draped in the usual manner. A Veress needle was introduced into the umbilicus and pneumoperitoneum was established without any difficulty. An 11 mm trocar was placed into the umbilicus and a 10 mm videolaparoscope was placed into the abdominal cavity under direct vision, three 5 mm trocars were placed in the right subcostal region. Video laparoscopy at this point revealed a gallbladder that was distended. The common duct was of normal to slightly enlarged caliber the cystic duct was rather large. The rest of the abdominal exploration was within normal limits. The adhesions to the neck of the gallbladder were then slowly and carefully taken down. The peritoneum overlying the neck of the gallbladder was then opened and the cystic duct was identified. The cystic duct was followed to its junction with the common duct. The cystic duct was then circumferentially dissected away from the common duct and a clip was then placed at the neck of the gallbladder. Opening was made into the cystic duct and a cholangiocatheter was introduced into the cystic duct and using half-strength dye under fluoroscopic guidance, free flow dye was seen into the duodenum and no retained common duct filling defects were identified. The cystic duct cholangiogram was then removed and cystic duct was doubly clipped and divided. The cystic artery was similarly doubly clipped and divided. The gallbladder was then slowly and carefully taken off the liver bed using the cautery scissors and hemostasis was ascertained. The gallbladder was placed in a bag and removed through the umbilicus. Video laparoscopy was then again carried out the liver bed was found to be dry. A SurgiSeal was left in the liver bed. All the excess fluid was aspirated. The pneumoperitoneum was evacuated and all the trocars were removed under direct vision. The midline fascia at the umbilicus was then closed with a [id number] of 0 Vicryl. All layers were infiltrated on the way out with solution of 0.25% Marcaine. Subcutaneous tissue was approximated with 3-0 Vicryl and the skin was closed with subcuticular 5-0 Vicryl. Benzoin Steri-Strips and Band-Aids were applied. The sponge, lap, and needle count was correct. The patient tolerated the procedure well and returned to the recovery room in stable condition. MD OLAF Ruiz/AKIL /[id number]
--- NOTE | 2018-11-11 17:45 | NUR ---
Received patient from Pac[facility] s/o lap vera and transferred to bed, 4 trochar sites to abdomen, post surgical instructions provided, pains well managed, VS- 139/70, P74, Temp-97.4, O2Sats 100% on 2L NC, RR 17, call light within reach, bed alarms in place, family at bed side, tolerating sips of fluids, Iv running as ordered, will monitor.
[2018-11-11] MEDS ORDERED: MIDAZOLAM HCL 2 MG/2 ML VIAL ONE (19:29)
[2018-11-11] MEDS ORDERED: FENTANYL CITRATE/PF 100MCG/2 ML INJ ONE (19:29)
[2018-11-11 19:42] VITALS: BP 113/62
[2018-11-12] VITALS (10 sets, daily range): BP systolic 119–153; BP diastolic 59–94
[2018-11-12] MEDS: DEXTROSE 5%/0.9% SOD CHL 1,000 ML IV SCH ×2 (01:01→14:45)
[2018-11-12] MEDS: PIPER-TAZ 3.375 GM 50 ML IV SCH ×3 (04:20→20:13)
[2018-11-12 05:41] LABS: BASOPHILS % 0.2 % (0.0-1.0); HEMATOCRIT 33.2 % (34.2-44.1); HEMOGLOBIN 10.9 g/dL (12.0-16.0); LYMPHOCYTES # (AUTO) 1.1 (1.0-3.2); LYMPHOCYTES % 8.7 % (18.0-39.1); MEAN CORPUSCULAR HEMOGLOBIN 30.4 pg (28-32); MEAN CORPUSCULAR HGB CONC 32.8 g/dL (31-35); MEAN CORPUSCULAR VOLUME 92.5 fL (81-99); MONOCYTES # (AUTO) 0.9 (0.2-0.8); MONOCYTES % 7.4 % (4.4-11.3); NEUTROPHILS # (AUTO) 10.2 (2.1-6.9); NEUTROPHILS % 83.4 % (38.7-80.0); PLATELET COUNT 205 x10e3/uL (140-360); RED BLOOD COUNT 3.59 x10e6/uL (3.6-5.1); RED CELL DISTRIBUTION WIDTH 12.2 % (11.7-14.4)
[2018-11-12 06:06] LABS: ALANINE AMINOTRANSFERASE 104 IU/L (0-55); ALBUMIN 3.2 g/dL (3.5-5.0); ALKALINE PHOSPHATASE 102 IU/L (40-150); AMYLASE 50 U/L (25-125); ANION GAP 12.9 mmol/L (8-16); BLOOD UREA NITROGEN < 5 mg/dL (7-26); CALCIUM 8.8 mg/dL (8.4-10.2); CARBON DIOXIDE 26 mmol/L (22-29); CHLORIDE 107 mmol/L (98-107); CREATININE, SERUM 0.67 mg/dL (0.57-1.11); EST GLOMERULAR FILTRATION RATE > 60 ML/MIN (60-); GLUCOSE 137 mg/dL (74-118); POTASSIUM 3.9 mmol/L (3.5-5.1); SODIUM 142 mmol/L (136-145)
[2018-11-12 06:09] LABS: BUN/CREATININE RATIO 7 (6-25)
--- NOTE | 2018-11-12 07:26 | NUR ---
Received patient this morning, a/ox3, pleasant and IV fluids running, minimal pains but tolerable this morning, rounds completed, call light within reach, no adverse events, will monitor.
[2018-11-12] MEDS: AMLODIPINE BESYLATE 10 MG TAB PO SCH (08:46)
[2018-11-12] MEDS: LISINOPRIL 20 MG TAB PO SCH (08:46)
--- NOTE | 2018-11-12 11:35 | NUR ---
Patient alert and responsive, OOB and ambulated with staff about 300 feet, back to room and sat up on chair for a while and assisted back to bed, no Gas yet, pains well managed, will monitor.
[2018-11-12] MEDS ORDERED: TYLENOL WITH C1 EACH PO (13:24)
[2018-11-12] MEDS ORDERED: KEFLEX500 MG PO (13:25)
[2018-11-12] MEDS: HYDROCODONE/APAP 7.5MG-325MG 1 EA TAB PO PRN (13:41)
--- NOTE | 2018-11-12 14:00 | NUR ---
Rounds by Dr. Vitaly Bledsoe and discharged patient. Rounds by attending and noted patient still on clear liquids and wants white count to trend down and diet advanced and re-evaluate tomorrow. Orders in place.
[2018-11-12] MEDS ORDERED: DOCUSATE SODIUM 100 MG CAP PO NR (14:15)
[2018-11-12] MEDS ORDERED: CITRATE OF MAGNESIA 300ML BOTTLE PO NR (14:30)
--- NOTE | 2018-11-12 16:16 | Progress Note ---
DATE: 11/12/2018 Medicine Progress Note SUBJECTIVE: The patient reports feeling much better today. She is status post postop day #1 laparoscopic cholecystectomy. The patient is on clear liquid diet. We will go ahead and advance full liquid in the morning. PHYSICAL EXAMINATION: VITAL SIGNS: Temperature is 98.8, pulse is 73, respiratory rate is 18, blood pressure 130/59, and pulse ox 96% on room air. GENERAL: Not in acute distress. Alert and oriented x3. Cooperative on examination. HEENT: Head is normocephalic and atraumatic. Eyes; pupils are equal, round, and reactive to light bilaterally. Extraocular movements are intact bilaterally. Throat, no evidence of erythema or exudates in the posterior pharynx. Has poor dentition. NECK: Supple. Good range of motion. PULMONARY: Clear to auscultation bilaterally. No wheezing, no rales, no rhonchi, no crackles appreciated. CARDIOVASCULAR: Positive S1 and S2. No murmurs, rubs, or gallops appreciated. ABDOMEN: Soft, nondistended, and nontender to palpation. Bowel sounds present. MUSCULOSKELETAL: Strength is 5/5 throughout. No evidence of any muscle deficits on examination. No weakness appreciable. NEUROLOGICAL: Cranial nerves II through XII grossly intact. No evidence of any neurological deficits on exam. SKIN: Intact. Warm to touch. Good cap refill. PSYCHIATRIC: Normal affect and mood. EXTREMITIES: No edema. Good range of motion throughout. LABORATORY FINDINGS: Show white count was 12.2, hemoglobin 10.9, hematocrit 33, and platelets of 205. Chemistry; sodium 142, potassium 3.9, chloride 107, actually all the chemistries are within normal range. MICROBIOLOGY: Urine cultures negative. IMPRESSION: 1. Cholelithiasis with elevated transaminases, status post cholecystectomy. Laparoscopic cholecystectomy performed on 11/11/2018. 2. Concern for ascending cholangitis. We will continue with IV antibiotics. 3. Acute pancreatitis, resolved. 4. Hypertension. PLAN: At this time, this is postop day #1. She is doing well, tolerating clear liquid diet, advance to full liquids in the morning. Continue with pain control. IV antibiotics. BMP and CBC in the morning, as her white count was elevated at 12 today. Discussed plan of care with nursing staff. MD KATHRYN Mcgregor/AKIL /[id number]
--- NOTE | 2018-11-12 22:00 | NUR ---
patient had a bowel movement.
[2018-11-13] MEDS: PIPER-TAZ 3.375 GM 50 ML IV SCH (04:14)
[2018-11-13 05:10] LABS: BASOPHILS # (AUTO) 0.1 (0.0-0.1); BASOPHILS % 0.6 % (0.0-1.0); EOSINOPHILS # (AUTO) 0.1 (0.0-0.4); EOSINOPHILS % 0.8 % (0.0-6.0); HEMATOCRIT 33.6 % (34.2-44.1); LYMPHOCYTES # (AUTO) 2.3 (1.0-3.2); LYMPHOCYTES % 25.2 % (18.0-39.1); MEAN CORPUSCULAR HEMOGLOBIN 30.5 pg (28-32); MEAN CORPUSCULAR HGB CONC 32.7 g/dL (31-35); MEAN CORPUSCULAR VOLUME 93.1 fL (81-99); MONOCYTES # (AUTO) 0.8 (0.2-0.8); MONOCYTES % 9.1 % (4.4-11.3); NEUTROPHILS # (AUTO) 5.7 (2.1-6.9); PLATELET COUNT 201 x10e3/uL (140-360); RED BLOOD COUNT 3.61 x10e6/uL (3.6-5.1); RED CELL DISTRIBUTION WIDTH 12.5 % (11.7-14.4)
[2018-11-13 05:26] VITALS: BP 139/74
[2018-11-13 05:32] LABS: ANION GAP 12.5 mmol/L (8-16); BLOOD UREA NITROGEN 5 mg/dL (7-26); BUN/CREATININE RATIO 8 (6-25); CARBON DIOXIDE 31 mmol/L (22-29); CHLORIDE 103 mmol/L (98-107); CREATININE, SERUM 0.65 mg/dL (0.57-1.11); EST GLOMERULAR FILTRATION RATE > 60 ML/MIN (60-); GLUCOSE 97 mg/dL (74-118); POTASSIUM 3.5 mmol/L (3.5-5.1); SODIUM 143 mmol/L (136-145)
--- NOTE | 2018-11-13 07:35 | NUR ---
Patient alert and responsive, VSS and denies any major pains at this time, had multiple BM and WBC at 8.0, no fever, having full liquids at this time, will monitor.
[2018-11-13] MEDS: HYDROCODONE/APAP 7.5MG-325MG 1 EA TAB PO PRN ×2 (07:40→12:30)
--- NOTE | 2018-11-13 07:45 | NUR ---
Received patient and a/ox3, in bed and no distress, call light within reach and will monitor.
[2018-11-13 08:03] VITALS: BP 145/67
[2018-11-13] MEDS: AMLODIPINE BESYLATE 10 MG TAB PO SCH (08:24)
[2018-11-13] MEDS: LISINOPRIL 20 MG TAB PO SCH (08:24)
[2018-11-13 08:29] VITALS: BP 145/67
[2018-11-13 11:46] VITALS: BP 141/65
--- NOTE | 2018-11-13 14:35 | NUR ---
Patient stable, VSS, medicated for pain, seen by attending and discharged, provided with discharge documentation and prescriptions, contacts for f/u appt. IV line removed with cath tip in place,
--- NOTE | 2018-11-14 01:11 | Discharge Summary ---
FINAL DISCHARGE DIAGNOSES: 1. Biliary dyskinesia status post laparoscopic cholecystectomy performed on 11/11/2018. 2. Acute pancreatitis. 3. Hypertension. CONSULTANTS: General Surgery and GI. PHYSICAL EXAMINATION: VITAL SIGNS: Temperature is 98, pulse of 80, respiratory rate is 18, blood pressure on room air. LABORATORY DATA: Lab findings show white count is 8.9, hemoglobin 11, hematocrit 33.6, platelets of 201. Chemistry; sodium 143, potassium 3.5, chloride 108, bicarb 31, BUN of 5, creatinine 0.65, glucose 97, calcium is 9. AST 49, ALT 104, total bilirubin is 0.3, albumin was 3.2, and lipase of 67. MICROBIOLOGY: Urine cultures were negative. IMAGING STUDIES: CT abdomen and pelvis with contrast, distended common bile duct with enhancing wall and gradual distal tapering. There is also mild periduodenal fat stranding at the junction of the 2nd and 3rd portions, shows evidence of focal duodenitis. There is also possible choledocholithiasis as well. A 6 mm ground-glass right lower lobe nodule, repeat CT in 6 to 12 months. Discussed the findings and she verbalized understanding to follow up as an outpatient. Liver ultrasound, cholelithiasis with no sonographic evidence of cholecystitis. There is an evidence of hepatic steatosis. HOSPITAL COURSE: This 63-year-old female comes into the ED with complaints of abdominal pain, found to have elevated transaminases and lipase level, was treated for underlying acute pancreatitis. GI was consulted initially with further imaging performed including CT abdomen and pelvis concerning for underlying pancreatitis with also choledocholithiasis. Ultrasound showed no evidence of cholecystitis, shows an evidence of cholelithiasis with possible underlying biliary dyskinesia. GI recommended General Surgery consultation. The patient underwent laparoscopic cholecystectomy on 11/11/2018. Postoperatively, the patient did well with no complaints. She was tolerating diet with no other issues. She was on IV antibiotics while here in the hospital stay. Her LFTs and lipase level have improved to normal prior to being discharged to home. She was advised to follow up with GI and General Surgery in 2 weeks' time. On the day of discharge, vital signs were stable. Labs reviewed and stable. The patient was seen and evaluated, examined thoroughly on the day of discharge. No other complaints. The patient verbalized understanding and agreed to plan of care to follow up as an outpatient with the primary care physician in one week, GI and General Surgery in two weeks' time. MEDICATIONS: See med reconciliation form. DISPOSITION: Home. CONDITION: Stable. DIET: Heart healthy. In the event of any worsening symptoms, the patient was advised to come back to the ED for further evaluation. Discharge summary took greater than 35 minutes. MD KATHRYN Mcgregor/AKIL /[id number]
== END 2018-11-13 14:21 | disposition home or self-care (01) | DRG 417 ==
LOC: ER 22:04 → ERHOLD 11-08 01:34 → MED/SURG 11-08 02:20
PROVIDERS: ADMIT Internal Medicine; ATTEND Internal Medicine
PROC: BF101ZZ Fluoroscopy of Bile Ducts using Low Osmolar Contrast (ICD-10-PCS; 2018-11-11)
PROC: 0FT44ZZ Resection of Gallbladder, Percutaneous Endoscopic Approach (ICD-10-PCS; principal; 2018-11-11 14:30)
DX: K80.64 Calculus of gallbladder and bile duct with chronic cholecystitis without obstruction (principal); K85.10 Biliary acute pancreatitis without necrosis or infection; K82.8 Other specified diseases of gallbladder; I10 Essential (primary) hypertension
CPT/HCPCS: 36415; 74177; 74300; 76705; 80048; 80053; 81001; 82150; 83690; 85025; 87086; 88304; 99284; C1766; J0692; J1100; J2001; J2250; J2270; J2405; J2543; J3010; J7030; J7042; Q9967

== ENCOUNTER → 2020-11-05 | Day surgery (SDC) | payer MEDICARE, OTHER ==
[2020-11-01 13:51] LABS: BASOPHILS % 0.5 % (0.0-1.0); EOSINOPHILS # (AUTO) 0.1 (0.0-0.4); EOSINOPHILS % 1.5 % (0.0-6.0); LYMPHOCYTES # (AUTO) 1.2 (1.0-3.2); LYMPHOCYTES % 16.3 % (18.0-39.1); MEAN CORPUSCULAR HEMOGLOBIN 29.3 pg (28-32); MEAN CORPUSCULAR HGB CONC 31.4 g/dL (31-35); MEAN CORPUSCULAR VOLUME 93.3 fL (81-99); MONOCYTES # (AUTO) 0.6 (0.2-0.8); MONOCYTES % 8.2 % (4.4-11.3); NEUTROPHILS # (AUTO) 5.4 (2.1-6.9); NEUTROPHILS % 73.1 % (38.7-80.0); PLATELET COUNT 224 x10e3/uL (140-360); RED BLOOD COUNT 3.75 x10e6/uL (3.6-5.1)
[~2020-11-05] MED LIST changes: +CARVEDILOL12.5 MG PO; +ELIQUIS2.5 MG PO; +FENTANYL CITRATE/PF 100MCG/2 ML INJ ONE; +KEFLEX500 MG PO; +LEXAPRO5 MG PO; +LIDOCAINE HCL 2% LOCAL INJ 5 ML SDV VIAL INJ ONE; +METOCLOPRAMIDE HCL 10 MG/2ML VIAL ONE; +MIDAZOLAM HCL 2 MG/2 ML VIAL ONE; +ONDANSETRON HCL INJ 2MG/ML 2ML 2 MG/ML VIAL ONE; +POVIDONE IODINE 0.05% 0.05 % ML PO ONE; +PROPOFOL IV EMULSION 10 MG/ML 20 ML VIAL ONE; +TRAZODONE HCL50 MG PO; +TYLENOL WITH C1 EACH PO; +VITAMIN B122500 MCG PO; +VITAMIN C PO; +ZINC PO
[2020-11-05 11:15] VITALS: BP 114/54
== END | disposition home or self-care (01) ==
LOC: OR 07:47
PROVIDERS: ATTEND Internal Medicine Gastroenterology
DX: Z12.11 Encounter for screening for malignant neoplasm of colon (principal); D12.4 Benign neoplasm of descending colon; K57.30 Diverticulosis of large intestine without perforation or abscess without bleeding; K64.8 Other hemorrhoids; I10 Essential (primary) hypertension; F41.9 Anxiety disorder, unspecified; I48.91 Unspecified atrial fibrillation; Z79.01 Long term (current) use of anticoagulants; K21.9 Gastro-esophageal reflux disease without esophagitis; Z01.810 Encounter for preprocedural cardiovascular examination; Z01.812 Encounter for preprocedural laboratory examination; Z79.899 Other long term (current) drug therapy; Z95.0 Presence of cardiac pacemaker; Z88.5 Allergy status to narcotic agent; Z88.2 Allergy status to sulfonamides; Z88.8 Allergy status to other drugs, medicaments and biological substances
CPT/HCPCS: 36415; 45384; 85025; 93005; J2001; J2250; J2405; J2704; J2765; J3010; 45378